=== PATIENT | male | born 1950 | race Caucasian/White ===

== ENCOUNTER → 2018-09-19 18:55 | Outpatient (REF) | payer MEDICARE, SELFPAY ==
[2018-09-19 19:05] LABS: Add Manual Diff / Slide Review NO; Basophils Absolute Auto 100 /uL (0-100); Basophils Percent Auto 1.1 % (0-2); Eosinophils Absolute Auto 100 /uL (0-450); Eosinophils Percent Auto 1.5 % (2-4); Hematocrit 46.6 % (41-53); Lymphocytes Absolute Auto 2600 /uL (1100-4500); Lymphocytes Percent Auto 33.8 % (25-40); Mean Corpuscular HGB Conc 34.4 % (30-36); Mean Corpuscular Hemoglobin 31.7 PG (26-34); Mean Corpuscular Volume 92.1 fL (80-100); Monocytes Absolute Auto 600 /uL (0-900); Monocytes Percent Auto 7.8 % (3-14); Neutrophils Absolute Auto 4400 /uL (1500-7000); Neutrophils Percent Auto 55.8 % (50-75); Platelet Count 235 X10^3/uL (150-400); Red Blood Cell Count 5.06 X10^6/uL (4.5-5.9); Red Cell Distribution Width 13.1 % (11.6-14.8); White Blood Cell Count 7.8 X10^3/uL (4.5-11.0)
[2018-09-19 19:11] LABS: Alanine Aminotransferase 33 IU/L (21-72); Albumin 4.6 g/dL (3.5-5.0); Albumin Globulin Ratio 1.5 (1.0-2.8); Alkaline Phosphatase 70 U/L (38-126); Aspartate Aminotransferase 30 IU/L (17-59); BUN Creatinine Ratio 14.2 (6-22); Bilirubin Total 0.5 mg/dL (0.2-1.3); Blood Urea Nitrogen 17 mg/dL (9-20); Calcium 9.7 mg/dL (8.4-10.2); Carbon Dioxide 26 mmol/L (22-32); Chloride 99 mmol/L (98-107); Cholesterol 203 mg/dL (140-199); Estimated Glomerular Filt Rate 59.9 mL/min (>60); Globulin 3.1 g/dL (1.7-4.1); Glucose 101 mg/dL (80-110); HDL Cholesterol 36 mg/dL (40-60); HEMOLYSIS 26 (0-50); LDL Cholesterol Calculated 102 mg/dL (<100); Potassium 4.8 mmol/L (3.4-5.1); Sodium 139 mmol/L (137-145); Total Protein 7.7 g/dL (6.3-8.2); Triglycerides 326 mg/dL (35-150)
[2018-09-19 19:17] LABS: Hemoglobin A1C% w Est Avg Glu 5.6 % (4.0-6.0)
[2018-09-19 19:33] LABS: Vitamin D 25 Hydroxy (D3) 32.7 ng/mL (30.0-100.0)
== END ==
LOC: LAB 18:55
PROVIDERS: Visit Provider Nurse Practitioner Acute Care
DX: E29.1 Testicular hypofunction (principal); F52.0 Hypoactive sexual desire disorder; I10 Essential (primary) hypertension
CPT/HCPCS: 80053; 80061; 82306; 83036; 84153; 85025

== ENCOUNTER 2018-11-17 22:23 | Emergency (ER) | payer MEDICARE, SELFPAY ==
[2018-11-17 22:27] VITALS: BP 159/78; PULSE 98; RESP 18; TEMP 36.7; O2SAT 97; BMI 28.8
--- NOTE | 2018-11-17 23:09 | ED.EXTPRO ---
HPI - Extremity Problem General Chief complaint: Extremity Problem,Nontraumatic Stated complaint: thinks he has a blood clot behind right knee Time Seen by Provider: 11/17/18 22:38 Source: patient Mode of arrival: ambulatory Limitations: no limitations History of Present Illness HPI Narrative: Patient is an otherwise healthy 68-year-old male here for evaluation of pain on the outside of his right knee. He states that today he has been approximately 16 hr in a car. When he returned home he had pain to the outside of the right knee. No specific trauma. No chest pain or shortness of breath. No prior history of blood clots. No swelling in his lower extremity. 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 Review of Systems Constitutional Denies headache(s) ENT Ears, Nose, Mouth, and Throat: Denies headache(s) Cardiovascular Denies chest pain and Denies dyspnea Respiratory Denies dyspnea Gastrointestinal Gastrointestinal: Denies abdominal pain Musculoskeletal Comments: Pain to the outside of the right knee Integumentary/Breasts Denies rash Neurologic Denies headache(s) Hematologic/Lymphatic Denies easy bleeding and Denies easy bruising [facility] Medical History Healthy adult (Acute) Social History marital status: Social History marital status: Exam Initial Vital Signs Initial Vital Signs: Vital Signs Temperature 98.1 F 11/17/18 22:27 Pulse Rate 98 H 11/17/18 22:27 Respiratory Rate 18 11/17/18 22:27 Blood Pressure 159/78 H 11/17/18 22:27 Pulse Oximetry 97 11/17/18 22:27 Const General: cooperative, healthy appearing, comfortable, well developed, well groomed and No acute distress Orientation: alert and awake Resp Effort & Inspection: normal respiratory effort Cardio Rate: regular rate Skin Lesions: no lesions Rashes: no rashes Neuro General: alert and awake Extrem General: normal to inspection and capillary refill normal Other: Patient with tenderness to palpation on the lateral aspect of the right knee over the head of the fibula. No patella tendon or quadriceps tendon tenderness. No hamstring tenderness. It is not tender on the posterior aspect of the right knee. Psych Appearance: grossly normal and well kempt Scores Danny' Criteria for DVT Active Cancer (Treatment within 6 months): No Bedridden recently >3 days or major surgery within 4 weeks: No Calf Swelling >3cm compared to other leg: No Collateral (nonvericose) superficial veins present: No Entire leg swollen: No Localized tenderness along the deep vein system: No Pitting edema, confined to symtomatic leg: No Paralysis, paresis, or recent plaster immobilization of ext: No Previously documented DVT: No Alternative dx to DVT as likely or more likely: Yes Christiano criteria for DVT: -2 Course Vital Signs - 8 hr 11/17/18 22:27 11/17/18 23:58 Temperature 98.1 F 98.7 F Pulse Rate 98 H 90 Respiratory Rate 18 18 Blood Pressure 159/78 H 152/70 H Pulse Oximetry 97 97 MDM - Extremity (Nontraumatic) MDM Narrative Medical decision making narrative: Patient with tenderness to palpation on the lateral aspect of the right knee that is pinpoint over the head of the fibula. He is not tender in the distribution of the veins in the right lower extremity. He has no right lower extremity swelling. He has no chest pain or shortness of breath. I did discuss with them that he is somewhat at risk for a blood clot secondary to his travel today however his physical exam is not consistent with that. Will hold on ultrasound for now. Will do conservative treatment for now. Give patient strict return precautions. He expressed understanding agreement plan. Discharge Plan Departure Patient Disposition: Home Clinical Impression: Knee pain, right Qualifiers: Chronicity: acute Qualified Code(s): M25.561 - Pain in right knee Discharge Date/Time: 11/17/18 23:55 Interventions: ED Discharge Assessment Last Done: 11/17/18 23:58 Instructions: How To Perform RICE (Rest, Ice, Compress, Elevate), DI for Knee Pain Activity Restrictions/Additional Instructions: Return to the emergency department for new symptoms to include swelling in your calf for your foot, chest pain, shortness of breath, worsening pain, or any other concerning symptoms
[2018-11-17 23:58] VITALS: BP 152/70; PULSE 90; RESP 18; TEMP 37.1; O2SAT 97
== END 2018-11-17 23:55 | disposition home or self-care (01) ==
PROVIDERS: Emergency Provider Emergency Medicine
DX: M25.561 Pain in right knee (principal)
CPT/HCPCS: 99282

== ENCOUNTER → 2020-09-29 18:02 | Outpatient (CLI) | payer MEDICARE, SELFPAY ==
[2020-09-29 18:28] LABS: Add Manual Diff / Slide Review NO; Basophils Absolute Auto 0 /uL (0-100); Basophils Percent Auto 0.5 % (0-2); Eosinophils Absolute Auto 100 /uL (0-450); Eosinophils Percent Auto 0.9 % (2-4); Hematocrit 46.2 % (41-53); Hemoglobin 15.6 g/dL (13.5-17.5); Lymphocytes Absolute Auto 2400 /uL (1100-4500); Lymphocytes Percent Auto 26.3 % (25-40); Mean Corpuscular HGB Conc 33.9 % (30-36); Mean Corpuscular Hemoglobin 31.6 PG (26-34); Mean Corpuscular Volume 93.4 fL (80-100); Monocytes Absolute Auto 700 /uL (0-900); Monocytes Percent Auto 7.4 % (3-14); Neutrophils Absolute Auto 5900 /uL (1500-7000); Neutrophils Percent Auto 64.9 % (50-75); Platelet Count 195 X10^3/uL (150-400); Red Blood Cell Count 4.95 X10^6/uL (4.5-5.9); Red Cell Distribution Width 12.9 % (11.6-14.8); White Blood Cell Count 9.1 X10^3/uL (4.5-11.0)
[2020-09-29 18:42] LABS: Alanine Aminotransferase 55 IU/L (<50); Albumin 4.5 g/dL (3.5-5.0); Albumin Globulin Ratio 1.3 (1.0-2.8); Alkaline Phosphatase 53 U/L (38-126); Aspartate Aminotransferase 38 IU/L (17-59); BUN Creatinine Ratio 12.4 (6-22); Bilirubin Total 0.6 mg/dL (0.2-1.3); Blood Urea Nitrogen 14 mg/dL (9-20); Calcium 9.8 mg/dL (8.4-10.2); Carbon Dioxide 32 mmol/L (22-32); Chloride 101 mmol/L (98-107); Estimated Glomerular Filt Rate > 60.0 mL/min (>60); Globulin 3.6 g/dL (1.7-4.1); Glucose 112 mg/dL (80-110); HEMOLYSIS < 15 (0-50); Potassium 4.2 mmol/L (3.4-5.1); Sodium 139 mmol/L (137-145); Total Protein 8.1 g/dL (6.3-8.2)
== END ==
PROVIDERS: Referring Provider Nurse Practitioner; Visit Provider Nurse Practitioner
DX: R42 Dizziness and giddiness (principal)
CPT/HCPCS: 36415; 80053; 85025

== ENCOUNTER → 2020-12-10 17:51 | Outpatient (CLI) | payer MEDICARE, SELFPAY | PROVIDERS: Visit Provider Student in an Organized Health Care Education/Training Program | DX: R30.0 Dysuria (principal) | CPT/HCPCS: 87086 ==

== ENCOUNTER → 2022-04-13 08:18 | Outpatient (CLI) | payer MEDICARE, SELFPAY ==
[2022-04-13 09:58] LABS: Add Manual Diff / Slide Review NO; Basophils Absolute Auto 100 /uL (0-100); Basophils Percent Auto 0.7 % (0-2); Eosinophils Absolute Auto 200 /uL (0-450); Eosinophils Percent Auto 1.9 % (2-4); Hemoglobin 15.1 g/dL (13.5-17.5); Lymphocytes Absolute Auto 2000 /uL (1100-4500); Lymphocytes Percent Auto 22.9 % (25-40); Mean Corpuscular HGB Conc 34.5 % (30-36); Mean Corpuscular Hemoglobin 31.4 PG (26-34); Mean Corpuscular Volume 91.3 fL (80-100); Monocytes Absolute Auto 800 /uL (0-900); Monocytes Percent Auto 8.9 % (3-14); Neutrophils Absolute Auto 5800 /uL (1500-7000); Neutrophils Percent Auto 65.6 % (50-75); Platelet Count 298 X10^3/uL (150-400); Red Blood Cell Count 4.82 X10^6/uL (4.5-5.9); Red Cell Distribution Width 13.3 % (11.6-14.8); White Blood Cell Count 8.9 X10^3/uL (4.5-11.0)
[2022-04-13 10:37] LABS: Alanine Aminotransferase 29 IU/L (<50); Albumin 4.2 g/dL (3.5-5.0); Albumin Globulin Ratio 1.3 (1.0-2.8); Alkaline Phosphatase 95 U/L (38-126); Aspartate Aminotransferase 25 IU/L (17-59); Bilirubin Total 0.5 mg/dL (0.2-1.3); Blood Urea Nitrogen 19 mg/dL (9-20); Calcium 9.3 mg/dL (8.4-10.2); Carbon Dioxide 28 mmol/L (22-32); Chloride 98 mmol/L (98-107); Estimated Glomerular Filt Rate > 60 mL/min (>60); Globulin 3.3 g/dL (1.7-4.1); Glucose 101 mg/dL (80-110); HEMOLYSIS < 15 (0-50); Potassium 4.8 mmol/L (3.4-5.1); Sodium 138 mmol/L (137-145); Total Protein 7.5 g/dL (6.3-8.2)
[2022-04-15 13:10] LABS: Cholesterol, Total 199 mg/dL (100-199); HDL-Cholesterol 42 mg/dL (>39); LDL Particle 1720 nmol/L (<1000); LDL Size 20.7 nm (>20.5); LDL-Cholsterol 139 mg/dL (0-99); LP-IR Score 54 (<=45); Small LDL- Particle 622 nmol/L (<=527); Triglycerides 100 mg/dL (0-149)
== END ==
PROVIDERS: PCP Nurse Practitioner Family; Referring Provider Specialist; Visit Provider Specialist
DX: E78.2 Mixed hyperlipidemia (principal); R06.00 Dyspnea, unspecified; R00.0 Tachycardia, unspecified
CPT/HCPCS: 36415; 80053; 80061; 83704; 84443; 85025

== ENCOUNTER 2025-03-20 15:50 | Inpatient (IN) | payer MEDICARE, SELFPAY ==
[2025-03-20] VITALS (13 sets, daily range): BP systolic 93–128; BP diastolic 50–62; PULSE 77–84; RESP 17–24; TEMP 37; O2SAT 92–95; BMI 28.1
--- NOTE | 2025-03-20 17:38 | DI.RAD.S_ITS ---
PROCEDURE: XR CHEST 1V INDICATIONS: fatigue/weakness/hx lung cancer TECHNIQUE: One view of the chest was acquired. COMPARISON: [facility], CT, CT CHEST WITH CONTRAST, 03/22/2022, 16:14. [facility], CR, XR CHEST 2 VIEWS, 03/10/2022, 18:32. FINDINGS: Surgical changes and devices: A right-sided central line is seen, with the tip overlying the mid superior vena cava. Lungs and pleura: An incomplete inspiratory result is noted, causing a crowded appearance to the lung markings. No focal infiltrates are seen. No pneumothorax or significant pleural effusions are seen. Mediastinum: The cardiac contours are within normal limits. The aorta demonstrates calcification and tortuosity. Bones and chest wall: Age-appropriate bony degenerative changes are seen. No suspicious bony lesions. Overlying soft tissues appear unremarkable. IMPRESSION: Low lung volumes, without an acute abnormality seen by plain film. Postoperative and degenerative changes are seen. Dictated by: Maximino Zuniga M.D. on 03/20/2025 at 17:11 Approved by: Maximino Zuniga M.D. on 03/20/2025 at 17:12
[2025-03-20 18:42] LABS: Add Manual Diff / Slide Review NO; Hematocrit 28.1 % (41-53); Hemoglobin 9.6 g/dL (13.5-17.5); Lymphocytes Absolute Auto 2200 /uL (1100-4500); Mean Corpuscular HGB Conc 34.1 % (30-36); Mean Corpuscular Hemoglobin 32.8 PG (26-34); Mean Corpuscular Volume 96.2 fL (80-100); Platelet Count 294 X10^3/uL (150-400)
[2025-03-20 18:54] LABS: Alanine Aminotransferase 14 IU/L (<50); Albumin 4.1 g/dL (3.5-5.0); Albumin Globulin Ratio 1.4 (1.0-2.8); Alkaline Phosphatase 150 U/L (38-126); Blood Urea Nitrogen 20 mg/dL (9-20); Calcium 8.9 mg/dL (8.4-10.2); Carbon Dioxide 27 mmol/L (22-32); Chloride 105 mmol/L (98-107); Estimated Glomerular Filt Rate > 60 mL/min (>60); Globulin 2.9 g/dL (1.7-4.1); Glucose 94 mg/dL (70-99); HEMOLYSIS < 15 (0-50); Lactate (Lactic Acid) 0.8 mmol/L (0.7-2.1); Potassium 4.1 mmol/L (3.4-5.1); Sodium 140 mmol/L (137-145); Total Protein 7.0 g/dL (6.3-8.2)
[2025-03-20] MEDS: SODIUM CHLORIDE 0.9% 1,000 ML 1000 ML IV ×2 (18:58→21:09)
--- NOTE | 2025-03-20 19:12 | ED.WEAKNESS ---
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 Rosado [facility] who he last saw 4 months ago, was scheduled for outpatient follow up MRI brain today, but felt too weak. Has generalized weakness for the last 1 week, increased today. Denies pain to head, chest, abdomen, pelvis, back. Has chronic joint pain. No recent diarrhea. No black or red stools. Denies cough shortness of breath. Related Data Home Medications ?Medication ?Instructions ?Recorded ?Confirmed alectinib 150 mg capsule (Alecensa) See Rx Instructions PO BID cancer 03/21/25 03/21/25 calcium carb-D3-mag [id number] 1 tab PO DAILY 03/21/25 03/21/25 duloxetine 30 mg capsule,delayed 30 mg PO BID 03/21/25 03/21/25 release finasteride 5 mg tablet 5 mg PO DAILY 03/21/25 03/21/25 methylphenidate HCl 5 mg tablet 5 mg PO DAILY PRN wake 03/21/25 03/21/25 mirabegron 50 mg tablet,extended 50 mg PO DAILY 03/21/25 03/21/25 release 24 hr (Myrbetriq) pantoprazole 40 mg tablet,delayed 40 mg PO DAILY 03/21/25 03/21/25 release potassium chloride 10 mEq 20 meq PO DAILY 03/21/25 03/21/25 capsule,extended release tadalafil 2.5 mg tablet 2.5 mg PO DAILY 03/21/25 03/21/25 tamsulosin 0.4 mg capsule 0.8 mg PO DAILY 03/21/25 03/21/25 Allergies Allergy/AdvReac Type Severity Reaction Status Date / Time chlorhexidine Allergy Verified 03/20/25 16:22 tegaderm Allergy Severe Rash Uncoded 03/20/25 16:22 Patient History <Jeromy Ramsay MD - Last Filed: 03/22/25 02:28> Medical History Healthy adult Sinusitis Social History marital status: household members: spouse Smoking Status: Never smoker alcohol intake: never Smoking Status: Never smoker Exam <Jeromy Ramsay MD - Last Filed: 03/22/25 02:28> Narrative Exam Narrative: GENERAL: Well-developed patient, in mild distress. HEAD: Atraumatic. Normocephalic. EYES: Pupils equal round and reactive. Extraocular motions intact. No scleral icterus. No injection or drainage. ENT: Nose without bleeding, purulent drainage. Throat without erythema, tonsillar hypertrophy or exudate. Airway patent. NECK: Trachea midline. Non tender CARDIOVASCULAR: Regular rate and rhythm without murmurs, gallops, or rubs. RESPIRATORY: Clear to auscultation. Breath sounds equal bilaterally. No wheezes, rales, or rhonchi. Right Port-A-Cath accessed by nursing, site appears clean without redness or swelling. GASTROINTESTINAL: Abdomen soft, non-tender, nondistended. EXTREMITIES: No edema or joint tenderness. BACK: Nontender without deformity or crepitance. No flank tenderness. NEURO: AOx3. Motor functions grossly nonfocal, can lift legs off bed but not hold, can lift arms off bed but not hold. No obvious facial droop, pupils equal round, conjugate gaze. Clear speech. SKIN: No rash or erythema of visible areas Initial Vital Signs Initial Vital Signs: Vital Signs Temperature 98.6 F 03/20/25 16:21 Pulse Rate 84 03/20/25 16:21 Respiratory Rate 18 03/20/25 16:21 Blood Pressure 119/53 L 03/20/25 16:21 Pulse Oximetry 95 03/20/25 16:21 Oxygen Delivery Method Room Air 03/20/25 16:21 <Jun Wilson MD - Last Filed: 03/22/25 14:54> Initial Vital Signs Initial Vital Signs: Vital Signs Temperature 98.6 F 03/20/25 16:21 Pulse Rate 84 03/20/25 16:21 Respiratory Rate 18 03/20/25 16:21 Blood Pressure 119/53 L 03/20/25 16:21 Pulse Oximetry 95 03/20/25 16:21 Oxygen Delivery Method Room Air 03/20/25 16:21 Course <Jeromy Ramsay MD - Last Filed: 03/22/25 02:28> Orders Ordered: Acetaminophen (Acetaminophen 325 Mg Tablet) 650 mg PO Q6H PRN PRN Reason: Fever/Mild Pain (1-3) Hydrocodone Bitart/Acetaminophen (Hydrocodone/Acet 5/325 Tablet) 1 tab PO Q4H PRN PRN Reason: Pain, Moderate (4-6) Dexamethasone (Dexamethasone 4 Mg/Ml Vial) 4 mg IV Q6HR [facility] Last Admin: 03/22/25 12:18 Dose: 4 mg Documented By: Admin: 03/22/25 05:31 Dose: 4 mg Documented By: Admin: 03/21/25 23:56 Dose: 4 mg Documented By: Admin: 03/21/25 17:40 Dose: 4 mg Documented By: DIMAS Heparin Sodium (Porcine) (Heparin 500 Unit/5 Ml Port Flush) 500 unit IV PRN PRN PRN Reason: Flush Sodium Chloride (Normal Saline 0.9%) 1,000 mls @ 250 mls/hr IV CONT [facility] Last Infusion: 03/21/25 08:47 Dose: Infused Documented By: Admin: 03/21/25 03:57 Dose: 250 mls/hr Documented By: MONSERRAT Dextrose/Sodium Chloride (Dextrose 5%-0.9% Ns) 1,000 mls @ 100 mls/hr IV CONT [facility] Last Admin: 03/22/25 13:10 Dose: 100 mls/hr Documented By: Infusion: 03/22/25 13:10 Dose: Infused Documented By: Admin: 03/22/25 03:26 Dose: 100 mls/hr Documented By: Infusion: 03/22/25 03:26 Dose: Infused Documented By: Admin: 03/21/25 17:41 Dose: 100 mls/hr Documented By: DIMAS Nf (Alectinib 150 Mg (Caps)) 600 mg PO BID [facility] Last Admin: 03/22/25 09:01 Dose: 600 mg Documented By: LISBETH Discontinued Medications Dexamethasone (Dexamethasone 10 Mg/Ml Vial) 10 mg IV NOW ONE Stop: 03/21/25 03:35 Last Admin: 03/21/25 03:57 Dose: 10 mg Documented By: MONSERRAT Sodium Chloride (Normal Saline 0.9%) 1,000 mls @ 1,000 mls/hr IV BOLUS ONE Stop: 03/20/25 18:37 Last Infusion: 03/20/25 21:08 Dose: Infused Documented By: Admin: 03/20/25 18:58 Dose: 1,000 mls/hr Documented By: RACHEL Sodium Chloride (Normal Saline 0.9%) 1,000 mls @ 1,000 mls/hr IV BOLUS ONE Stop: 03/20/25 22:06 Last Infusion: 03/20/25 22:54 Dose: Infused Documented By: Admin: 03/20/25 21:09 Dose: 1,000 mls/hr Documented By: RACHEL Vital Signs Vital signs: Vital Signs - 8 hr 03/21/25 06:30 03/21/25 06:30 03/21/25 06:59 Pulse Rate 80 72 Respiratory Rate 15 Blood Pressure 104/51 L Pulse Oximetry 98 98 Oxygen Delivery Method Oxygen Flow Rate 03/21/25 07:00 03/21/25 07:01 03/21/25 07:40 Pulse Rate 72 80 Respiratory Rate 15 Blood Pressure 107/56 L Pulse Oximetry 99 Oxygen Delivery Method Oxygen Flow Rate 03/21/25 07:41 03/21/25 07:41 03/21/25 08:00 Pulse Rate 80 Respiratory Rate 21 Blood Pressure 117/56 L 105/55 L Pulse Oximetry 100 Oxygen Delivery Method Oxygen Flow Rate 03/21/25 08:00 03/21/25 08:30 03/21/25 08:30 Pulse Rate 73 74 Respiratory Rate 16 4 L Blood Pressure 107/53 L Pulse Oximetry 99 95 Oxygen Delivery Method Oxygen Flow Rate 03/21/25 09:00 03/21/25 09:00 03/21/25 11:34 Pulse Rate 75 Respiratory Rate 13 Blood Pressure 120/58 L Pulse Oximetry 88 L Oxygen Delivery Method Nasal Cannula Oxygen Flow Rate 2 03/21/25 12:00 Pulse Rate 80 Respiratory Rate 18 Blood Pressure Pulse Oximetry 99 Oxygen Delivery Method Oxygen Flow Rate <Jun Wilson MD - Last Filed: 03/22/25 14:54> Orders Ordered: Acetaminophen (Acetaminophen 325 Mg Tablet) 650 mg PO Q6H PRN PRN Reason: Fever/Mild Pain (1-3) Hydrocodone Bitart/Acetaminophen (Hydrocodone/Acet 5/325 Tablet) 1 tab PO Q4H PRN PRN Reason: Pain, Moderate (4-6) Dexamethasone (Dexamethasone 4 Mg/Ml Vial) 4 mg IV Q6HR [facility] Last Admin: 03/22/25 12:18 Dose: 4 mg Documented By: Admin: 03/22/25 05:31 Dose: 4 mg Documented By: Admin: 03/21/25 23:56 Dose: 4 mg Documented By: Admin: 03/21/25 17:40 Dose: 4 mg Documented By: DIMAS Heparin Sodium (Porcine) (Heparin 500 Unit/5 Ml Port Flush) 500 unit IV PRN PRN PRN Reason: Flush Sodium Chloride (Normal Saline 0.9%) 1,000 mls @ 250 mls/hr IV CONT [facility] Last Infusion: 03/21/25 08:47 Dose: Infused Documented By: Admin: 03/21/25 03:57 Dose: 250 mls/hr Documented By: MONSERRAT Dextrose/Sodium Chloride (Dextrose 5%-0.9% Ns) 1,000 mls @ 100 mls/hr IV CONT [facility] Last Admin: 03/22/25 13:10 Dose: 100 mls/hr Documented By: Infusion: 03/22/25 13:10 Dose: Infused Documented By: Admin: 03/22/25 03:26 Dose: 100 mls/hr Documented By: Infusion: 03/22/25 03:26 Dose: Infused Documented By: Admin: 03/21/25 17:41 Dose: 100 mls/hr Documented By: DIMAS Nf (Alectinib 150 Mg (Caps)) 600 mg PO BID [facility] Last Admin: 03/22/25 09:01 Dose: 600 mg Documented By: LISBETH Discontinued Medications Dexamethasone (Dexamethasone 10 Mg/Ml Vial) 10 mg IV NOW ONE Stop: 03/21/25 03:35 Last Admin: 03/21/25 03:57 Dose: 10 mg Documented By: MONSERRAT Sodium Chloride (Normal Saline 0.9%) 1,000 mls @ 1,000 mls/hr IV BOLUS ONE Stop: 03/20/25 18:37 Last Infusion: 03/20/25 21:08 Dose: Infused Documented By: Admin: 03/20/25 18:58 Dose: 1,000 mls/hr Documented By: RACHEL Sodium Chloride (Normal Saline 0.9%) 1,000 mls @ 1,000 mls/hr IV BOLUS ONE Stop: 03/20/25 22:06 Last Infusion: 03/20/25 22:54 Dose: Infused Documented By: Admin: 03/20/25 21:09 Dose: 1,000 mls/hr Documented By: RACHEL Vital Signs Vital signs: Vital Signs - 8 hr 03/21/25 06:30 03/21/25 06:30 03/21/25 06:59 Pulse Rate 80 72 Respiratory Rate 15 Blood Pressure 104/51 L Pulse Oximetry 98 98 Oxygen Delivery Method Oxygen Flow Rate 03/21/25 07:00 03/21/25 07:01 03/21/25 07:40 Pulse Rate 72 80 Respiratory Rate 15 Blood Pressure 107/56 L Pulse Oximetry 99 Oxygen Delivery Method Oxygen Flow Rate 03/21/25 07:41 03/21/25 07:41 03/21/25 08:00 Pulse Rate 80 Respiratory Rate 21 Blood Pressure 117/56 L 105/55 L Pulse Oximetry 100 Oxygen Delivery Method Oxygen Flow Rate 03/21/25 08:00 03/21/25 08:30 03/21/25 08:30 Pulse Rate 73 74 Respiratory Rate 16 4 L Blood Pressure 107/53 L Pulse Oximetry 99 95 Oxygen Delivery Method Oxygen Flow Rate 03/21/25 09:00 03/21/25 09:00 03/21/25 11:34 Pulse Rate 75 Respiratory Rate 13 Blood Pressure 120/58 L Pulse Oximetry 88 L Oxygen Delivery Method Nasal Cannula Oxygen Flow Rate 2 03/21/25 12:00 Pulse Rate 80 Respiratory Rate 18 Blood Pressure Pulse Oximetry 99 Oxygen Delivery Method Oxygen Flow Rate MDM - Weakness <Jeromy Ramsay MD - Last Filed: 03/22/25 02:28> Lab Data Lab results narrative: White blood cell count 77293, hemoglobin 9.6, platelets 294,000. Glucose 94. BUN 20 with creatinine 1.22, serum CO2 27. Electrolytes unremarkable. Urinalysis negative. COVID RSV flu negative. 03/22/25 04:38 03/22/25 04:38 Labs: Lab Results 03/20/25 03/20/25 03/21/25 Range/Units 18:31 22:13 01:13 WBC 13.1 H (4.5-11.0) X10^3/uL RBC 2.92 L (4.5-5.9) X10^6/uL Hgb 9.6 L (13.5-17.5) g/dL Hct 28.1 L (41-53) % MCV 96.2 (80-100) fL MCH 32.8 (26-34) PG MCHC 34.1 (30-36) % RDW 14.5 (11.6-14.8) % Plt Count 294 (150-400) X10^3/uL Neut % (Auto) 71.1 (50-75) % Lymph % (Auto) 17.0 L (25-40) % [place] % (Auto) 5.9 (3-14) % Eos % (Auto) 5.1 H (2-4) % Baso % (Auto) 0.9 (0-2) % Neut # (Auto) 9300 H (6636-9358) /uL Lymph # (Auto) 2200 (6005-3709) /uL [place] # (Auto) 800 (0-900) /uL Eos # (Auto) 700 H (0-450) /uL Baso # (Auto) 100 (0-100) /uL VBG pH (7.33-7.43) VBG pCO2 (45-50) mmHg VBG pO2 (35-45) mmHg VBG HCO3 (24-28) mmol/L VBG Total CO2 (24-29) mmol/L VBG O2 Saturation (70-75) % VBG Base Excess (0-4) mmol/L FiO2 % % Sodium 140 (137-145) mmol/L Potassium 4.1 (3.4-5.1) mmol/L Chloride 105 (98-107) mmol/L Carbon Dioxide 27 (22-32) mmol/L BUN 20 (9-20) mg/dL Creatinine 1.22 (0.66-1.25) mg/dL Estimated GFR > 60 (>60) mL/min BUN/Creatinine Ratio 16.4 (6-22) Glucose 94 (70-99) mg/dL Lactate 0.8 (0.7-2.1) mmol/L Calcium 8.9 (8.4-10.2) mg/dL Total Bilirubin 1.1 (0.2-1.3) mg/dL AST 25 (17-59) IU/L ALT 14 (<50) IU/L Alkaline Phosphatase 150 H (38-126) U/L Troponin I < 0.012 < 0.012 (0.01-0.034) ng/mL Total Protein 7.0 (6.3-8.2) g/dL Albumin 4.1 (3.5-5.0) g/dL Globulin 2.9 (1.7-4.1) g/dL Albumin/Globulin Ratio 1.4 (1.0-2.8) Urine Color Yellow Urine Appearance Clear Urine pH 6.0 (4.5-8.0) Ur Specific [place] 1.020 (1.000-1.035) Urine Protein Negative (Negative) Urine Glucose (UA) Negative (Negative) g/dL Urine Ketones Negative (NEGATIVE) Urine Occult Blood Negative (Negative) Urine Nitrate Negative (Negative) Urine Bilirubin Negative (NEGATIVE) Urine Urobilinogen 0.2 (0.2) E.U./dL Ur Leukocyte Esterase Negative (NEGATIVE) Urine RBC None seen (0-5/HPF) Urine WBC None seen (0-5/HPF) Ur Squamous Epith Cells None seen (0-5/HPF) Urine Bacteria None seen (None) Ur Culture Indicated? Cult not indicated Vol Urine Centrifuged 10ml (spun) SARS-CoV-2 (PCR) Negative (Negative) Influenza A (RT-PCR) Flu a negative (NEGATIVE) Influenza B (RT-PCR) Flu b negative (NEGATIVE) RSV (PCR) Negative (Negative) Blood Type Antibody Screen 03/21/25 03/21/25 03/21/25 Range/Units 03:05 03:33 08:37 WBC (4.5-11.0) X10^3/uL RBC (4.5-5.9) X10^6/uL Hgb 8.2 L 9.2 L (13.5-17.5) g/dL Hct 22.9 L 26.5 L (41-53) % MCV (80-100) fL MCH (26-34) PG MCHC (30-36) % RDW (11.6-14.8) % Plt Count (150-400) X10^3/uL Neut % (Auto) (50-75) % Lymph % (Auto) (25-40) % [place] % (Auto) (3-14) % Eos % (Auto) (2-4) % Baso % (Auto) (0-2) % Neut # (Auto) (6037-9513) /uL Lymph # (Auto) (9858-0706) /uL [place] # (Auto) (0-900) /uL Eos # (Auto) (0-450) /uL Baso # (Auto) (0-100) /uL VBG pH (7.33-7.43) VBG pCO2 (45-50) mmHg VBG pO2 (35-45) mmHg VBG HCO3 (24-28) mmol/L VBG Total CO2 (24-29) mmol/L VBG O2 Saturation (70-75) % VBG Base Excess (0-4) mmol/L FiO2 % % Sodium (137-145) mmol/L Potassium (3.4-5.1) mmol/L Chloride (98-107) mmol/L Carbon Dioxide (22-32) mmol/L BUN (9-20) mg/dL Creatinine (0.66-1.25) mg/dL Estimated GFR (>60) mL/min BUN/Creatinine Ratio (6-22) Glucose (70-99) mg/dL Lactate (0.7-2.1) mmol/L Calcium (8.4-10.2) mg/dL Total Bilirubin (0.2-1.3) mg/dL AST (17-59) IU/L ALT (<50) IU/L Alkaline Phosphatase (38-126) U/L Troponin I (0.01-0.034) ng/mL Total Protein (6.3-8.2) g/dL Albumin (3.5-5.0) g/dL Globulin (1.7-4.1) g/dL Albumin/Globulin Ratio (1.0-2.8) Urine Color Urine Appearance Urine pH (4.5-8.0) Ur Specific [place] (1.000-1.035) Urine Protein (Negative) Urine Glucose (UA) (Negative) g/dL Urine Ketones (NEGATIVE) Urine Occult Blood (Negative) Urine Nitrate (Negative) Urine Bilirubin (NEGATIVE) Urine Urobilinogen (0.2) E.U./dL Ur Leukocyte Esterase (NEGATIVE) Urine RBC (0-5/HPF) Urine WBC (0-5/HPF) Ur Squamous Epith Cells (0-5/HPF) Urine Bacteria (None) Ur Culture Indicated? Vol Urine Centrifuged SARS-CoV-2 (PCR) (Negative) Influenza A (RT-PCR) (NEGATIVE) Influenza B (RT-PCR) (NEGATIVE) RSV (PCR) (Negative) Blood Type O Negative Antibody Screen Negative 03/21/25 Range/Units 14:50 WBC (4.5-11.0) X10^3/uL RBC (4.5-5.9) X10^6/uL Hgb (13.5-17.5) g/dL Hct (41-53) % MCV (80-100) fL MCH (26-34) PG MCHC (30-36) % RDW (11.6-14.8) % Plt Count (150-400) X10^3/uL Neut % (Auto) (50-75) % Lymph % (Auto) (25-40) % [place] % (Auto) (3-14) % Eos % (Auto) (2-4) % Baso % (Auto) (0-2) % Neut # (Auto) (4710-0104) /uL Lymph # (Auto) (3755-2084) /uL [place] # (Auto) (0-900) /uL Eos # (Auto) (0-450) /uL Baso # (Auto) (0-100) /uL VBG pH 7.39 (7.33-7.43) VBG pCO2 38.6 L (45-50) mmHg VBG pO2 38 (35-45) mmHg VBG HCO3 24 (24-28) mmol/L VBG Total CO2 23 L (24-29) mmol/L VBG O2 Saturation 72 (70-75) % VBG Base Excess -1.1 L (0-4) mmol/L FiO2 % 21.0 % % Sodium (137-145) mmol/L Potassium (3.4-5.1) mmol/L Chloride (98-107) mmol/L Carbon Dioxide (22-32) mmol/L BUN (9-20) mg/dL Creatinine (0.66-1.25) mg/dL Estimated GFR (>60) mL/min BUN/Creatinine Ratio (6-22) Glucose (70-99) mg/dL Lactate (0.7-2.1) mmol/L Calcium (8.4-10.2) mg/dL Total Bilirubin (0.2-1.3) mg/dL AST (17-59) IU/L ALT (<50) IU/L Alkaline Phosphatase (38-126) U/L Troponin I (0.01-0.034) ng/mL Total Protein (6.3-8.2) g/dL Albumin (3.5-5.0) g/dL Globulin (1.7-4.1) g/dL Albumin/Globulin Ratio (1.0-2.8) Urine Color Urine Appearance Urine pH (4.5-8.0) Ur Specific [place] (1.000-1.035) Urine Protein (Negative) Urine Glucose (UA) (Negative) g/dL Urine Ketones (NEGATIVE) Urine Occult Blood (Negative) Urine Nitrate (Negative) Urine Bilirubin (NEGATIVE) Urine Urobilinogen (0.2) E.U./dL Ur Leukocyte Esterase (NEGATIVE) Urine RBC (0-5/HPF) Urine WBC (0-5/HPF) Ur Squamous Epith Cells (0-5/HPF) Urine Bacteria (None) Ur Culture Indicated? Vol Urine Centrifuged SARS-CoV-2 (PCR) (Negative) Influenza A (RT-PCR) (NEGATIVE) Influenza B (RT-PCR) (NEGATIVE) RSV (PCR) (Negative) Blood Type Antibody Screen Imaging Data Chest x-ray: Radiologist Impression: [address] [address] XRay Report Signed Patient: Sumeet Echeverria MR#: [id number] : 1950 Acct:[id number] Age/Sex: 74 / M Date of Service: 03/20/25 Loc: ED Accession Number: [id number] Procedure: XR chest 1V Ordering Provider: Radha Horan MD PROCEDURE: XR CHEST 1V INDICATIONS: fatigue/weakness/hx lung cancer TECHNIQUE: One view of the chest was acquired. COMPARISON: [facility], CT, CT CHEST WITH CONTRAST, 03/22/2022, 16:14. [facility], CR, XR CHEST 2 VIEWS, 03/10/2022, 18:32. FINDINGS: Surgical changes and devices: A right-sided central line is seen, with the tip overlying the mid superior vena cava. Lungs and pleura: An incomplete inspiratory result is noted, causing a crowded appearance to the lung markings. No focal infiltrates are seen. No pneumothorax or significant pleural effusions are seen. Mediastinum: The cardiac contours are within normal limits. The aorta demonstrates calcification and tortuosity. Bones and chest wall: Age-appropriate bony degenerative changes are seen. No suspicious bony lesions. Overlying soft tissues appear unremarkable. IMPRESSION: Low lung volumes, without an acute abnormality seen by plain film. Postoperative and degenerative changes are seen. Dictated by: Maximino Zuniga M.D. on 03/20/2025 at 17:11 Approved by: Maximino Zuniga M.D. on 03/20/2025 at 17:12 [facility] Narrative Medical decision making narrative: 74-year-old male with history of non-small cell carcinoma responsive to oral chemotherapy. Has generalized weakness. Afebrile, sirs screen negative. Nonfocal neuro exam. Chest x-ray without obvious acute changes. See radiology report. Urinalysis negative. Lactate not elevated. Trial of IV fluids, saline 1 L, repeat dose, heart rate not elevated. Systolic blood pressure varied 90-100 range. 0130, unclear cause of his continued weakness. We will request blood cultures. GFR favorable, agreeable to CT chest abdomen and pelvis imaging, ordered. 0310, CT chest abdomen and pelvis with IV contrast. Impressions: ?Sclerotic lesions within the thoracic and lumbar spine suspicious for metastatic disease. Recommend whole-body bone scan if not performed previously. Incidental findings.. See tele radiology report. Patient feels too weak to go home, spinal lesions noted above. We will reach out to his oncologist Dr Rosado at [facility]. 0330, case discussed with oncology [facility] Dr. Fan, concern about spinal lesions possibly related to his generalized weakness, they did not have radiology oncology consult if it were needed, also no beds there currently. Suggest transfer to facility that has Radiology Oncology, Neurosurgery, Oncology services. If still here at change of shift upcoming 0700 he advised MRI brain without and with contrast, MRI spine without and with contrast. Can start Decadron 10 mg now, and then 6 mg IV q8 hours. IV Decadron 10 mg ordered. [employer] initiating transfers to tertiary facility. Images sent to various facilities. 0400, case discussed with [facility] intake. Await callback. 0430, case discussed with , no beds. 0500, case discussed with [facility] oncology Dr Salazar, agrees with MRI Brain/Spine later this morning, can consult if transferred. Await callback from [facility] hospitalist. 0505, case discussed with Dr Harrington radiation oncology at [facility], advises MRI studies and callback. Believes that [facility] should further consult. 0550, case discussed with [facility] hosptialist Dr Duffy, advises MRI Brain/Spine and to reach out to [place] once studdy results available. Also no current beds at [facility]. 0620, case discussed with [place], no radiology oncology reportedly on-call there. We will reach back out to Sergey Barahona. Family members relayed contact information regarding their previous oncology related providers. Dr. Rosado oncology [facility], phone [phone]. Yasmani Ortez radiation oncology [facility], phone [phone]. Also they identified a provider Kathryn Resendiz MD, reported expert of ANK-positive small cell lung cancer at [facility], at phone [phone]. 0715, consider reaching out to [facility] oncology and rad-onc today during regular hours, MRI Brain/Spine ordered, to be performed, signed out to Dr Carmen. ---- Assumed care @ 0715 with work up and disposition pending. Above notes reviewed. Pt with generalized weakness with no focal findings x 1 week. Hx of nonsmall cell lung cancer. Oncologist is @ [facility]. Work up thus far unrevealing as to the cause of his weakness with normal labs, CT chest/abd/pelvis. Oncologist consulted overnight and recommended Decadron 10mg initially then 6mg q 8 hours, MRI brain and spine and transfer. No luck finding accepting facility. At time of transfer, plan was to get noncontrast CT head and if still here, MRI as suggested. CT head: IMPRESSION: 1. Age-related volume loss and severe small vessel ischemic change. 2. No acute intracranial process. Will reach out to pt's oncologist for recommendations. Pt reports ongoing issues with weakness since a diagnosis of cancer in 2021. He lives with his and has been using walker to help with ambulation. Reports worsening weakness in his legs x 1 week but also generalized weakness. No fever, cough, chest pain, abdominal pain, N/V/D/C. No significant back pain. Hgb earlier noted to drop after 2L bolus and continuous maintenance fluids. Mildly hypotensive prior to fluids. Will recheck Hgb now. No obvious source of bleeding. Pt was placed on supplemental oxygen when sleeping but when awake he is not hypoxic. No home oxygen. Will get PT evaluation regarding his weakness. Paged Dr. Rosado (oncologist in [place]) to discuss plan of care. <Jun Wilson MD - Last Filed: 03/22/25 14:54> Lab Data Labs: Lab Results 03/20/25 03/20/25 03/21/25 Range/Units 18:31 22:13 01:13 WBC 13.1 H (4.5-11.0) X10^3/uL RBC 2.92 L (4.5-5.9) X10^6/uL Hgb 9.6 L (13.5-17.5) g/dL Hct 28.1 L (41-53) % MCV 96.2 (80-100) fL MCH 32.8 (26-34) PG MCHC 34.1 (30-36) % RDW 14.5 (11.6-14.8) % Plt Count 294 (150-400) X10^3/uL Neut % (Auto) 71.1 (50-75) % Lymph % (Auto) 17.0 L (25-40) % [place] % (Auto) 5.9 (3-14) % Eos % (Auto) 5.1 H (2-4) % Baso % (Auto) 0.9 (0-2) % Neut # (Auto) 9300 H (4474-0706) /uL Lymph # (Auto) 2200 (7587-7192) /uL [place] # (Auto) 800 (0-900) /uL Eos # (Auto) 700 H (0-450) /uL Baso # (Auto) 100 (0-100) /uL VBG pH (7.33-7.43) VBG pCO2 (45-50) mmHg VBG pO2 (35-45) mmHg VBG HCO3 (24-28) mmol/L VBG Total CO2 (24-29) mmol/L VBG O2 Saturation (70-75) % VBG Base Excess (0-4) mmol/L FiO2 % % Sodium 140 (137-145) mmol/L Potassium 4.1 (3.4-5.1) mmol/L Chloride 105 (98-107) mmol/L Carbon Dioxide 27 (22-32) mmol/L BUN 20 (9-20) mg/dL Creatinine 1.22 (0.66-1.25) mg/dL Estimated GFR > 60 (>60) mL/min BUN/Creatinine Ratio 16.4 (6-22) Glucose 94 (70-99) mg/dL Lactate 0.8 (0.7-2.1) mmol/L Calcium 8.9 (8.4-10.2) mg/dL Total Bilirubin 1.1 (0.2-1.3) mg/dL AST 25 (17-59) IU/L ALT 14 (<50) IU/L Alkaline Phosphatase 150 H (38-126) U/L Troponin I < 0.012 < 0.012 (0.01-0.034) ng/mL Total Protein 7.0 (6.3-8.2) g/dL Albumin 4.1 (3.5-5.0) g/dL Globulin 2.9 (1.7-4.1) g/dL Albumin/Globulin Ratio 1.4 (1.0-2.8) Urine Color Yellow Urine Appearance Clear Urine pH 6.0 (4.5-8.0) Ur Specific [place] 1.020 (1.000-1.035) Urine Protein Negative (Negative) Urine Glucose (UA) Negative (Negative) g/dL Urine Ketones Negative (NEGATIVE) Urine Occult Blood Negative (Negative) Urine Nitrate Negative (Negative) Urine Bilirubin Negative (NEGATIVE) Urine Urobilinogen 0.2 (0.2) E.U./dL Ur Leukocyte Esterase Negative (NEGATIVE) Urine RBC None seen (0-5/HPF) Urine WBC None seen (0-5/HPF) Ur Squamous Epith Cells None seen (0-5/HPF) Urine Bacteria None seen (None) Ur Culture Indicated? Cult not indicated Vol Urine Centrifuged 10ml (spun) SARS-CoV-2 (PCR) Negative (Negative) Influenza A (RT-PCR) Flu a negative (NEGATIVE) Influenza B (RT-PCR) Flu b negative (NEGATIVE) RSV (PCR) Negative (Negative) Blood Type Antibody Screen 03/21/25 03/21/25 03/21/25 Range/Units 03:05 03:33 08:37 WBC (4.5-11.0) X10^3/uL RBC (4.5-5.9) X10^6/uL Hgb 8.2 L 9.2 L (13.5-17.5) g/dL Hct 22.9 L 26.5 L (41-53) % MCV (80-100) fL MCH (26-34) PG MCHC (30-36) % RDW (11.6-14.8) % Plt Count (150-400) X10^3/uL Neut % (Auto) (50-75) % Lymph % (Auto) (25-40) % [place] % (Auto) (3-14) % Eos % (Auto) (2-4) % Baso % (Auto) (0-2) % Neut # (Auto) (9763-0342) /uL Lymph # (Auto) (1112-6556) /uL [place] # (Auto) (0-900) /uL Eos # (Auto) (0-450) /uL Baso # (Auto) (0-100) /uL VBG pH (7.33-7.43) VBG pCO2 (45-50) mmHg VBG pO2 (35-45) mmHg VBG HCO3 (24-28) mmol/L VBG Total CO2 (24-29) mmol/L VBG O2 Saturation (70-75) % VBG Base Excess (0-4) mmol/L FiO2 % % Sodium (137-145) mmol/L Potassium (3.4-5.1) mmol/L Chloride (98-107) mmol/L Carbon Dioxide (22-32) mmol/L BUN (9-20) mg/dL Creatinine (0.66-1.25) mg/dL Estimated GFR (>60) mL/min BUN/Creatinine Ratio (6-22) Glucose (70-99) mg/dL Lactate (0.7-2.1) mmol/L Calcium (8.4-10.2) mg/dL Total Bilirubin (0.2-1.3) mg/dL AST (17-59) IU/L ALT (<50) IU/L Alkaline Phosphatase (38-126) U/L Troponin I (0.01-0.034) ng/mL Total Protein (6.3-8.2) g/dL Albumin (3.5-5.0) g/dL Globulin (1.7-4.1) g/dL Albumin/Globulin Ratio (1.0-2.8) Urine Color Urine Appearance Urine pH (4.5-8.0) Ur Specific [place] (1.000-1.035) Urine Protein (Negative) Urine Glucose (UA) (Negative) g/dL Urine Ketones (NEGATIVE) Urine Occult Blood (Negative) Urine Nitrate (Negative) Urine Bilirubin (NEGATIVE) Urine Urobilinogen (0.2) E.U./dL Ur Leukocyte Esterase (NEGATIVE) Urine RBC (0-5/HPF) Urine WBC (0-5/HPF) Ur Squamous Epith Cells (0-5/HPF) Urine Bacteria (None) Ur Culture Indicated? Vol Urine Centrifuged SARS-CoV-2 (PCR) (Negative) Influenza A (RT-PCR) (NEGATIVE) Influenza B (RT-PCR) (NEGATIVE) RSV (PCR) (Negative) Blood Type O Negative Antibody Screen Negative 03/21/25 Range/Units 14:50 WBC (4.5-11.0) X10^3/uL RBC (4.5-5.9) X10^6/uL Hgb (13.5-17.5) g/dL Hct (41-53) % MCV (80-100) fL MCH (26-34) PG MCHC (30-36) % RDW (11.6-14.8) % Plt Count (150-400) X10^3/uL Neut % (Auto) (50-75) % Lymph % (Auto) (25-40) % [place] % (Auto) (3-14) % Eos % (Auto) (2-4) % Baso % (Auto) (0-2) % Neut # (Auto) (4048-2751) /uL Lymph # (Auto) (3461-7535) /uL [place] # (Auto) (0-900) /uL Eos # (Auto) (0-450) /uL Baso # (Auto) (0-100) /uL VBG pH 7.39 (7.33-7.43) VBG pCO2 38.6 L (45-50) mmHg VBG pO2 38 (35-45) mmHg VBG HCO3 24 (24-28) mmol/L VBG Total CO2 23 L (24-29) mmol/L VBG O2 Saturation 72 (70-75) % VBG Base Excess -1.1 L (0-4) mmol/L FiO2 % 21.0 % % Sodium (137-145) mmol/L Potassium (3.4-5.1) mmol/L Chloride (98-107) mmol/L Carbon Dioxide (22-32) mmol/L BUN (9-20) mg/dL Creatinine (0.66-1.25) mg/dL Estimated GFR (>60) mL/min BUN/Creatinine Ratio (6-22) Glucose (70-99) mg/dL Lactate (0.7-2.1) mmol/L Calcium (8.4-10.2) mg/dL Total Bilirubin (0.2-1.3) mg/dL AST (17-59) IU/L ALT (<50) IU/L Alkaline Phosphatase (38-126) U/L Troponin I (0.01-0.034) ng/mL Total Protein (6.3-8.2) g/dL Albumin (3.5-5.0) g/dL Globulin (1.7-4.1) g/dL Albumin/Globulin Ratio (1.0-2.8) Urine Color Urine Appearance Urine pH (4.5-8.0) Ur Specific [place] (1.000-1.035) Urine Protein (Negative) Urine Glucose (UA) (Negative) g/dL Urine Ketones (NEGATIVE) Urine Occult Blood (Negative) Urine Nitrate (Negative) Urine Bilirubin (NEGATIVE) Urine Urobilinogen (0.2) E.U./dL Ur Leukocyte Esterase (NEGATIVE) Urine RBC (0-5/HPF) Urine WBC (0-5/HPF) Ur Squamous Epith Cells (0-5/HPF) Urine Bacteria (None) Ur Culture Indicated? Vol Urine Centrifuged SARS-CoV-2 (PCR) (Negative) Influenza A (RT-PCR) (NEGATIVE) Influenza B (RT-PCR) (NEGATIVE) RSV (PCR) (Negative) Blood Type Antibody Screen Imaging Data MRI brain: Radiologist Impression: IMPRESSION: 1. No acute stroke. No intracranial metastatic disease. 2. Age-related volume loss and severe small vessel ischemic change. 3. Multiple punctate foci of hemosiderin deposition. Consider cavernous hemangiomata. Also consider amyloid angiopathy. MRI Cspine: Radiologist Impression: IMPRESSION: No abnormal enhancement is seen. No litzy findings of cervical metastatic disease can be seen. Multiple levels of underlying degenerative change can be seen. MRI Tspine: Radiologist Impression: IMPRESSION: Scattered areas of sclerotic metastatic disease can be seen, which are overall better demonstrated on the accompanying CT study. No significant abnormal enhancement can be seen. MRI Lspine: Radiologist Impression: IMPRESSION: This patient has bony sclerotic lesions, which are better demonstrated by CT. No abnormal enhancement is seen. Underlying degenerative changes are seen, which are overall worst at the L4-L5 level. 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 Has generalized weakness. Afebrile, sirs screen negative. Nonfocal neuro exam. Chest x-ray without obvious acute changes. See radiology report. Urinalysis negative. Lactate not elevated. Trial of IV fluids, saline 1 L, repeat dose, heart rate not elevated. Systolic blood pressure varied 90-100 range. 0130, unclear cause of his continued weakness. We will request blood cultures. GFR favorable, agreeable to CT chest abdomen and pelvis imaging, ordered. 0310, CT chest abdomen and pelvis with IV contrast. Impressions: ?Sclerotic lesions within the thoracic and lumbar spine suspicious for metastatic disease. Recommend whole-body bone scan if not performed previously. Incidental findings.. See tele radiology report. Patient feels too weak to go home, spinal lesions noted above. We will reach out to his oncologist Dr Rosado at [facility]. 0330, case discussed with oncology [facility] Dr. Fan, concern about spinal lesions possibly related to his generalized weakness, they did not have radiology oncology consult if it were needed, also no beds there currently. Suggest transfer to facility that has Radiology Oncology, Neurosurgery, Oncology services. If still here at change of shift upcoming 0700 he advised MRI brain without and with contrast, MRI spine without and with contrast. Can start Decadron 10 mg now, and then 6 mg IV q8 hours. IV Decadron 10 mg ordered. [employer] initiating transfers to tertiary facility. Images sent to various facilities. 0400, case discussed with [facility] intake. Await callback. 0430, case discussed with , no beds. 0500, case discussed with [facility] oncology Dr Salazar, agrees with MRI Brain/Spine later this morning, can consult if transferred. Await callback from [facility] hospitalist. 0505, case discussed with Dr Harrington radiation oncology at [facility], advises MRI studies and callback. Believes that [facility] should further consult. 0550, case discussed with [facility] hosptialist Dr Duffy, advises MRI Brain/Spine and to reach out to [place] once studdy results available. Also no current beds at [facility]. 0620, case discussed with [place], no radiology oncology reportedly on-call there. We will reach back out to Sergey Barahona. Family members relayed contact information regarding their previous oncology related providers. Dr. Rosado oncology [facility], phone [phone]. Yasmani Ortez radiation oncology [facility], phone [phone]. Also they identified a provider Kathryn Resendiz MD, reported expert of ANK-positive small cell lung cancer at [facility], at phone [phone]. 0715, consider reaching out to [facility] oncology and rad-onc today during regular hours, MRI Brain/Spine ordered, to be performed, signed out to Dr Carmen. ---- Assumed care @ 0715 with work up and disposition pending. Above notes reviewed. Pt with generalized weakness with no focal findings x 1 week. Hx of nonsmall cell lung cancer. Oncologist is @ [facility]. Work up thus far unrevealing as to the cause of his weakness with normal labs, CT chest/abd/pelvis. Oncologist consulted overnight and recommended Decadron 10mg initially then 6mg q 8 hours, MRI brain and spine and transfer. No luck finding accepting facility. At time of transfer, plan was to get noncontrast CT head and if still here, MRI as suggested. CT head: IMPRESSION: 1. Age-related volume loss and severe small vessel ischemic change. 2. No acute intracranial process. Will reach out to pt's oncologist for recommendations. Pt reports ongoing issues with weakness since a diagnosis of cancer in 2021. He lives with his and has been using walker to help with ambulation. Reports worsening weakness in his legs x 1 week but also generalized weakness. No fever, cough, chest pain, abdominal pain, N/V/D/C. No significant back pain. Hgb earlier noted to drop after 2L bolus and continuous maintenance fluids. Mildly hypotensive prior to fluids. Will recheck Hgb now. No obvious source of bleeding. Pt was placed on supplemental oxygen when sleeping but when awake he is not hypoxic. No home oxygen. Will get PT evaluation regarding his weakness. Paged Dr. Rosado (oncologist in [place]) to discuss plan of care. MRI results reviewed - no significant new spinal findings to explain cause of his weakness. Spoke to oncologist [employer] application developer for [facility] who works with Dr. Rosado - felt that since MRI findings showed no new spine lesions, transfer was not indicated and pt can be followed by Dr. Rosado in the office. PT evaluation ordered and PT at bedside but pt is too sleepy/lethargic to cooperate/participate. Discussed findings with at bedside and plan of care. She reports yesterday that weakness was so bad it required 3 person assist for him to stand. Did not feel safe with discharge home. Discussed case with Dr. Art (hospitalist @ [place]) - accepts pt for admission. Discharge Plan Departure Patient Disposition: Admitted As Inpatient Clinical Impression: Weakness, Anemia in chronic illness Admit Date/Time: 03/21/25 16:35 Admit Provider: Albert Art
[2025-03-20 19:29] LABS: Influenza A - CEPHEID Flu A NEGATIVE (NEGATIVE); Influenza B - CEPHEID Flu B NEGATIVE (NEGATIVE)
[2025-03-20 19:33] LABS: COVID-19 CEPHEID 4-PLEX PCR Negative (Negative)
[2025-03-20 22:19] LABS: Appearance Urine UA CLEAR; Bilirubin Urine UA NEGATIVE (NEGATIVE); Color Urine UA YELLOW; Glucose Urine UA NEGATIVE (Negative); Ketones Urine UA NEGATIVE (NEGATIVE); Leukocyte Esterase Urine UA NEGATIVE (NEGATIVE); Nitrite Urine UA NEGATIVE (Negative); Occult Blood Urine UA NEGATIVE (Negative); Protein Urine UA NEGATIVE (Negative); Specific Gravity Urine UA 1.020 (1.000-1.035); Urobilinogen Urine UA 0.2 E.U./dL (0.2); pH Urine UA 6.0 (4.5-8.0)
[2025-03-20 22:55] LABS: Culture Indicated Urine Cult Not Indicated
[2025-03-21] VITALS (40 sets, daily range): BP systolic 90–123; BP diastolic 45–58; PULSE 68–86; RESP 4–28; TEMP 36.2–36.4; O2SAT 88–100; BMI 26.8
--- NOTE | 2025-03-21 01:35 | DI.CT.S_ITS ---
PROCEDURE: CT CHEST ABD PEL W CON INDICATIONS: gen weakness, hx lung cancer stage 4 TECHNIQUE: After the administration of intravenous contrast, 5 mm thick sections acquired from the lung apices to the symphysis. 5 mm coronal and sagittal reformats were performed, with additional 7 mm MIP reformats through the lungs. For radiation dose reduction, the following was used: automated exposure control, adjustment of mA and/or kV according to patient size. COMPARISON: [facility], CT, CT ABDOMEN PELVIS WITH CONTRAST, 04/04/2022, 13:57. [facility], CT, CT CHEST WITH CONTRAST, 03/22/2022, 16:14. FINDINGS: Image quality: Diagnostic Lungs and pleura: Scattered areas of scarring and opacities, most confluent in the right lower lung. No discrete round mass identified. Emphysematous changes. Mediastinum, heart, and esophagus: Moderate atherosclerotic calcifications, with narrowing particularly noted in the left subclavian. Normal heart size. Coronary calcifications. No enlarged lymph nodes by size criteria. Decreased lymphadenopathy compared to 2021 study. Chest wall and thyroid: A right port catheter is present, terminating SVC. Visualized thyroid is unremarkable Liver: Multiple subcentimeter lesions are present, indeterminate but most commonly cysts. Attention on follow-up given oncologic history. A segment 4 definite cyst is also seen. Gallbladder and biliary system: Gallbladder is unremarkable. Nondilated biliary system Pancreas: No ductal dilation Spleen: Nonenlarged Adrenals: No discrete nodules Decreased right adrenal nodularity compared to 202 Kidneys: Right mid renal cyst. Subcentimeter lesions are too small to characterize, usually cysts. No hydronephrosis or solid renal mass Vessels and lymph nodes: No abdominal aortic aneurysm. The main portal vein appears patent. No lymphadenopathy by size criteria in the abdomen/pelvis. Bowel and peritoneum: No small bowel obstruction. 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 Colonic diverticulosis. Moderate overall fecal loading. No drainable abscess or ascites. Body wall: Small fat containing inguinal hernias. Pelvis: Bladder is unremarkable. Heterogeneous prostate enhancement, not well assessed on this study. Bones: Degenerative osseous changes. Scattered sclerotic lesions of the lumbar and thoracic spine, for example along the superior right half of the T1 vertebral body. IMPRESSION: Sclerotic spine lesions suspicious for metastatic disease. Scattered atelectasis/scarring with thickened opacities in the lungs, most obvious in the right lower lobe. Close attention on follow-up suggested given malignancy history. Decreased hilar mediastinal lymphadenopathy and right adrenal nodularity compared to 202. Other findings above. No significant changes from the preliminary report. Dictated by: Yannick Pedroza M.D. on 03/21/2025 at 8:10 Approved by: Yannick Pedroza M.D. on 03/21/2025 at 8:18
--- NOTE | 2025-03-21 01:37 | PC.NURSE ---
Pt did not tolerate ambulation trial. Pt is too weak to sit on the side of the bed. Pt was max 3 person assist back to position of comfort. Incontinent care given and linens changed.
[2025-03-21 01:52] LABS: Troponin I < 0.012 ng/mL (0.01-0.034)
[2025-03-21 02:20] LABS: Troponin I < 0.012 ng/mL (0.01-0.034)
[2025-03-21 03:17] LABS: Hematocrit 22.9 % (41-53); Hemoglobin 8.2 g/dL (13.5-17.5)
[2025-03-21] MEDS: SODIUM CHLORIDE 0.9% 1,000 ML 250 ML IV (03:57)
[2025-03-21] MEDS: DEXAMETHASONE 10 MG/ML VIAL IV (03:57)
--- NOTE | 2025-03-21 05:10 | DI.MRI.S_ITS ---
PROCEDURE: MR CERVICAL SPINE WO/W CON INDICATIONS: weak, hx lung CA stage4 TECHNIQUE: Noncontrast sagittal T1 spin echo and T2 fast spin echo, sagittal STIR, foraminal oblique sagittal T2 fast spin echo, axial gradient echo or T2 fast spin echo through the cervical spine. After the administration of contrast, axial and sagittal T1 spin echo with fat saturation through the cervical spine. COMPARISON: [facility], CT, CT CHEST ABD PEL W CON, 03/21/2025, 2:01. [facility], CT, CT HEAD/BRAIN WO/W CON, 03/21/2025, 7:25. [facility], MR, MR LUMBAR SPINE WO/W CON, 03/21/2025, 9:31. [facility], MR, MR THORACIC SPINE WO/W CON, 03/21/2025, 9:31. [facility], MR, MR HEAD/BRAIN WO/W CON, 03/21/2025, 9:31. FINDINGS: Image quality: This examination is limited by involuntary motion artifact. Alignment and curvature: There is minimal retrolisthesis seen at the C3-C4 level. Marrow: Marrow is normal in overall signal, without suspicious enhancement. Spinal cord: Visualized spinal cord has normal size and signal. No cerebellar tonsillar herniation. No abnormal intramedullary enhancement. Paraspinous soft tissues: No paravertebral masses or suspicious enhancement. C2-3: Mild loss of disc height is seen. Loss of disc signal is seen. Moderate generalized disc osteophyte complex is seen. At least moderate facet hypertrophy is seen. There is at least moderate bilateral neural foraminal narrowing seen. No central canal narrowing is seen. C3-4: Moderate loss of disc height is seen. Loss of disc signal is seen. Moderate generalized disc osteophyte complex is seen. There is a superimposed central disc osteophyte protrusion. At least moderate facet hypertrophy is seen. There is moderate right-sided and at least moderate left-sided neural foraminal narrowing. Mild central canal narrowing is seen. C4-5: The disc height is well-preserved. Loss of disc signal is seen at this level. Moderate generalized disc osteophyte complex is seen. There is at least moderate facet hypertrophy. There is at least moderate bilateral neural foraminal narrowing. No central canal narrowing is seen. C5-6: At least moderate loss of disc height and disc signal can be seen. Moderate disc osteophyte complex is seen, which is eccentric to the right. Moderate facet joint hypertrophy is seen. There the is moderate to severe bilateral neural foraminal narrowing, right worse than left. Mild to moderate central canal narrowing is seen. C6-7: Moderate loss of disc height is seen. Loss of disc signal is seen. Moderate generalized disc osteophyte complex is seen. There is a superimposed central disc osteophyte protrusion. Mild to moderate facet hypertrophy can be seen. There is at least moderate bilateral neural foraminal narrowing. Moderate central canal narrowing is seen. There is associated mass effect upon the ventral spinal cord. C7-T1: No significant abnormality is seen. IMPRESSION: No abnormal enhancement is seen. No litzy findings of cervical metastatic disease can be seen. Multiple levels of underlying degenerative change can be seen. Dictated by: Maximino Zuniga M.D. on 03/21/2025 at 10:31 Approved by: Maximino Zuniga M.D. on 03/21/2025 at 10:36
--- NOTE | 2025-03-21 05:10 | DI.MRI.S_ITS ---
PROCEDURE: MR LUMBAR SPINE WO/W CON INDICATIONS: weak, hx lung cancer stage4 TECHNIQUE: Noncontrast sagittal T1 spin echo and T2 fast spin echo, sagittal STIR, axial T1 and T2 fast spin echo through the lumbar spine. In cases with scoliosis, additional coronal T2 fast spin echo may be performed. After the administration of contrast, sagittal and axial T1 spin echo with fat saturation through the lumbar spine. COMPARISON: [facility], MR, MR HEAD/BRAIN WO/W CON, 03/21/2025, 9:31. [facility], MR, MR CERVICAL SPINE WO/W CON, 03/21/2025, 9:31. [facility], MR, MR THORACIC SPINE WO/W CON, 03/21/2025, 9:31. [facility], CT, CT CHEST ABD PEL W CON, 03/21/2025, 2:01. [facility], CT, CT ABDOMEN PELVIS WITH CONTRAST, 04/04/2022, 13:57. FINDINGS: Image quality: This examination is limited by involuntary motion artifact. Alignment and curvature: There is normal bony alignment. Marrow: On the accompanying CT study, this patient has several sclerotic bony lesions. These can be seen on the current study, including at the inferior endplate of L3, although the sclerotic foci are better seen by CT. Spinal cord: Conus medullaris terminates at the L1 level. Visualized spinal cord demonstrates normal signal, without suspicious enhancement. Paraspinous soft tissues: No paravertebral masses or abnormal enhancement. T12-L1: Normal appearance. L1-L2: Normal appearance. L2-L3: The disc height and disk signal are relatively well-preserved. A mild degree of generalized disc osteophyte complex is seen. Mild to moderate facet hypertrophy is seen. Mild bilateral neural foraminal narrowing is seen. Minimal central canal narrowing is seen. L3-L4: The disc height is well-preserved. Loss of disc signal is seen at this level. Moderate generalized disc bulge is seen. There is a superimposed central disc protrusion. Moderate facet joint hypertrophy is seen. There is at least moderate bilateral neural foraminal narrowing. Moderate central canal narrowing is seen. L4-L5: The disc height is well-preserved. Loss of disc signal is seen at this level. Moderate generalized disc bulge is seen. There is a superimposed central disc osteophyte protrusion. At least moderate facet hypertrophy is seen. There is at least moderate bilateral neural foraminal narrowing, right worse than left. Moderate central canal narrowing is seen. L5-S1: The disc height and disk signal are relatively well-preserved. Mild generalized disc bulge is seen. Moderate facet joint hypertrophy is seen. Moderate bilateral neural foraminal narrowing is seen. Mild central canal narrowing is seen. IMPRESSION: This patient has bony sclerotic lesions, which are better demonstrated by CT. No abnormal enhancement is seen. Underlying degenerative changes are seen, which are overall worst at the L4-L5 level. Dictated by: Maximino Zuniga M.D. on 03/21/2025 at 10:41 Approved by: Maximino Zuniga M.D. on 03/21/2025 at 10:44
--- NOTE | 2025-03-21 05:10 | DI.MRI.S_ITS ---
PROCEDURE: MR HEAD/BRAIN WO/W CON INDICATIONS: brain mets, spinal mets, weak, hx lung CA stage4 TECHNIQUE: Noncontrast axial T1 spin echo, axial T2 fast spin echo, sagittal and axial FLAIR, coronal T2 fast spin echo, axial gradient echo, axial diffusion and ADC through the brain. After the administration of contrast, axial and coronal and sagittal T1 spin echo with fat saturation through the brain. COMPARISON: [facility], CT, CT CHEST ABD PEL W CON, 03/21/2025, 2:01. [facility], MR, MR THORACIC SPINE WO/W CON, 03/21/2025, 9:31. [facility], CT, CT HEAD/BRAIN WO/W CON, 03/21/2025, 7:25. FINDINGS: Image quality: Excellent. CSF spaces: Basal cisterns are patent. No extra-axial fluid collections. Ventricles are normal in size and shape. Brain: No midline shift. No intracranial bleeds or masses. No abnormal intracranial enhancement. There is cerebral volume loss for age. There is severe periventricular white matter chronic small vessel ischemic change. The brainstem appears normal. Diffusion-weighted images demonstrate no acute infarct. No chronic ischemic insults. Normal intravascular flow voids are present. There are multiple punctate foci of hemosiderin deposition. Consider cavernous hemangiomas with associated tiny hemorrhages as a possibility. Skull and face: Calvarial marrow is normal in signal. Orbits appear normal. Sinuses: Sinuses and mastoids appear clear. IMPRESSION: 1. No acute stroke. No intracranial metastatic disease. 2. Age-related volume loss and severe small vessel ischemic change. 3. Multiple punctate foci of hemosiderin deposition. Consider cavernous hemangiomata. Also consider amyloid angiopathy. Dictated by: Rufus Miller M.D. on 03/21/2025 at 11:22 Approved by: Rufus Miller M.D. on 03/21/2025 at 11:27
--- NOTE | 2025-03-21 05:10 | DI.MRI.S_ITS ---
PROCEDURE: MR THORACIC SPINE WO/W CON INDICATIONS: weak, hx lung cancer stage4 TECHNIQUE: Noncontrast sagittal T1 spin echo and T2 fast spin echo, sagittal STIR, axial T1 and T2 fast spin echo through the thoracic spine. After the administration of contrast, axial and sagittal T1 spin echo with fat saturation through the thoracic spine. COMPARISON: [facility], CT, CT CHEST WITH CONTRAST, 03/22/2022, 16:14. [facility], MR, MR HEAD/BRAIN WO/W CON, 03/21/2025, 9:31. [facility], MR, MR CERVICAL SPINE WO/W CON, 03/21/2025, 9:31. [facility], MR, MR LUMBAR SPINE WO/W CON, 03/21/2025, 9:31. [facility], CT, CT CHEST ABD PEL W CON, 03/21/2025, 2:01. FINDINGS: Image quality: This examination is limited by involuntary motion artifact. Alignment and curvature: There is normal bony alignment. Marrow: On the accompanying CT study, this patient has several sclerotic lesions. These lesions are overall better demonstrated on the CT study, although they can be seen on the current examination, including along the posterior aspect of the T3 and T5 levels. Within T10, there is a benign vertebral body hemangioma present. Spinal cord: Visualized spinal cord is of normal signal and size, without abnormal enhancement. Paraspinous soft tissues: There is atelectasis seen at the right lung base. Miscellaneous: Underlying degenerative changes are seen, scattered levels of mild disc space narrowing. No significant neural foraminal or central canal narrowing can be seen. IMPRESSION: Scattered areas of sclerotic metastatic disease can be seen, which are overall better demonstrated on the accompanying CT study. No significant abnormal enhancement can be seen. Dictated by: Maximino Zuniga M.D. on 03/21/2025 at 10:36 Approved by: Maximino Zuniga M.D. on 03/21/2025 at 10:40
--- NOTE | 2025-03-21 06:44 | PC.NURSE ---
GENERAL SUPERINTENDENT note: Attempting to find placement for patient. Called the following hospitals with the following responses: [facility]: 0230 spoke w/ Alejandra. Patient gets treatment there, but after Dr. Ramsay spoke to the oncologist, we were told they didn't have beds and they'd need radiology oncology, which they do not have. [facility]: 0340 spoke w/ Bucky. They don't have beds. [facility]: 0344 spoke w/ Jesusita. [facility]: 0351 spoke w/ Lisha 0521 [facility] called with their hospitalist. Dr. Ramsay was in a procedure. 0534 called [facility] back, Dr. Ramsay spoke w/ their hospitalist. Recommended to call [facility] back 0623 called [facility] back, spoke w/ Tejas. Refusing saying they don't have rad oncology. Dr. Ramsay spoke with [facility]. 0628 [facility] spoke w/ Jesusita. Jesusita was going to emiliana Cle[employer] and Emiliana who were working on the case. 0655 [facility] called back, spoke with Emiliana. Emiliana said Dr. Duffy (their hospitalist) said that [facility] has rad onc. Call their nursing sup to get clarification. Emiliana said that her job class doesn't do that and we don't call outside facilities for that stuff. Told her I would tell my day shift folks what was happening. Thanked her for her help
--- NOTE | 2025-03-21 06:45 | PC.NURSE ---
Incontinent care provided and barrier cream applied. Skin intact. Linens changed. Pt turned to left side.
--- NOTE | 2025-03-21 07:09 | DI.CT.S_ITS ---
PROCEDURE: CT HEAD/BRAIN WO/W CON INDICATIONS: weakness generalized TECHNIQUE: 4.5 mm thick angled axial sections acquired from the foramen magnum to the vertex both before and after the administration of intravenous contrast, with coronal and sagittal reformats. For radiation dose reduction, the following was used: automated exposure control, adjustment of mA and/or kV according to patient size. COMPARISON: None. FINDINGS: Image quality: Excellent. CSF spaces: Basal cisterns are patent. No extra-axial fluid collections. Ventricles are symmetric in size and shape. Brain: No midline shift. No intracranial bleeds or masses. No abnormal intracranial enhancement. There is cerebral volume loss for age. There is severe periventricular white matter chronic small vessel ischemic change. There is intracranial internal carotid artery atherosclerosis. Skull and face: Calvarium and visualized facial bones appear intact, without suspicious lesions. Sinuses: Right maxillary sinus mucosal thickening. Visualized sinuses and mastoids are otherwise clear. IMPRESSION: 1. Age-related volume loss and severe small vessel ischemic change. 2. No acute intracranial process. Dictated by: Rufus Miller M.D. on 03/21/2025 at 8:04 Approved by: Rufus Miller M.D. on 03/21/2025 at 8:05
[2025-03-21 08:47] LABS: Hematocrit 26.5 % (41-53); Hemoglobin 9.2 g/dL (13.5-17.5)
--- NOTE | 2025-03-21 13:36 | PT-IP ANOTE ---
PT eval order received. checked on pt this morning and was not available and was out for MRI. checked back on pt again after a few hours and pt eating lunch. will check back later.
[2025-03-21 14:53] LABS: Base Excess VBG -1.1 mmol/L (0-4); HCO3 VBG 24 mmol/L (24-28); Oxygen Saturation VBG 72 % (70-75); PCO2 VBG 38.6 mmHg (45-50); PO2 VBG 38 mmHg (35-45); Total CO2 VBG 23 mmol/L (24-29); pH VBG 7.39 (7.33-7.43)
--- NOTE | 2025-03-21 15:41 | PT-IP ANOTE ---
checked back on pt this afternoon and spouse in room. pt asleep. talked with spouse and stated that pt needs PT. informed spouse regarding PT eval and mobility assessment and spouse consented to do PT. obtained PLOF and home set up. Attempted to wake pt up and pt able to keep eyes open for 2-3 seconds and went back to sleep. Pt found to be wet in bed and needing brief change. nurse alerted. PT started setting up for pt for mobility assessment and possibly assisting NAC for pt's brief change. pt requiring constant cues to stay awake. spouse then stated that pt cannot be move and should not stand up. asked spouse regarding PT consent again due to spouse agreed for pt to have PT but then also does not want PT to move pt. spouse stated that PT can do things in bed. informed spouse that PT needs to do mobility assessment and that involves pt to sit up and possibly standing if able. spouse then stated that she wants to be sure first that pt's bone is stable due to CA and wants to hold of on PT. talked to ED doctor and stated that pt's MRI are fine and pt medically stable to do PT. informed ED doctor regarding spouse's concerns and pt also lethargic at this time to be able to participate to do PT. PT eval not completed and hold off for today. will f/u.
--- NOTE | 2025-03-21 15:58 | PC.NURSE ---
aware of heparin flush order; okay with this. Rakesh CHAVEZ aware of pt heparin flush order.
--- NOTE | 2025-03-21 16:51 | PC.NURSE ---
Patient report given to Jose Miranda RN. Patient port was flushed with heparin post discontinuing of fluid.
--- NOTE | 2025-03-21 17:39 | PM.HP.1 ---
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 Rosado [facility] telephone [phone] and pager [phone] Who he last saw 4 months ago, was scheduled for outpatient follow up MRI brain today, but felt too weak. Has generalized weakness for the last 1 week, increased today. Extensive workup was done in the emergency department with CT and an MRI imaging of brain thoracic spine lumbar spine abdomen and pelvis. Pertinent finding is on MRI of the brain demonstrates demonstrates the following: There are multiple punctate foci of hemosiderin deposition. Consider cavernous hemangiomas with associated tiny hemorrhages as a possibility. The remainder of the workup hemogram chemistries were unremarkable Patient was admitted for encephalopathy secondary to vasogenic cerebral edema from innumerable punctate foci of microhemorrhages. Dr. Carbajal was paged awaiting response. 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 alectinib 600 mg twice daily Loading dose Decadron with good response 10 mg and continue 4 mg IV q.6 hours Continue alectinib 600 mg twice daily Do not resuscitate DVT prophylaxis with SCDs only due to hemorrhage Code status: Do not resuscitate 120 minutes were involved in managing this patient including consultation with references colleagues laboratory and imaging data [facility] Medical History Healthy adult Sinusitis Social History marital status: household members: spouse, children and other Smoking Status: Never smoker alcohol intake: never Meds Home Medications and Allergies Home Medications ?Medication ?Instructions ?Recorded ?Confirmed ?Type alectinib 150 mg capsule (Alecensa) See Rx Instructions PO BID cancer 03/21/25 03/21/25 History calcium carb-D3-mag [id number] 1 tab PO DAILY 03/21/25 03/21/25 History duloxetine 30 mg capsule,delayed 30 mg PO BID 03/21/25 03/21/25 History release finasteride 5 mg tablet 5 mg PO DAILY 03/21/25 03/21/25 History methylphenidate HCl 5 mg tablet 5 mg PO DAILY PRN wake 03/21/25 03/21/25 History mirabegron 50 mg tablet,extended 50 mg PO DAILY 03/21/25 03/21/25 History release 24 hr (Myrbetriq) pantoprazole 40 mg tablet,delayed 40 mg PO DAILY 03/21/25 03/21/25 History release potassium chloride 10 mEq 20 meq PO DAILY 03/21/25 03/21/25 History capsule,extended release tadalafil 2.5 mg tablet 2.5 mg PO DAILY 03/21/25 03/21/25 History tamsulosin 0.4 mg capsule 0.8 mg PO DAILY 03/21/25 03/21/25 History Allergies Allergy/AdvReac Type Severity Reaction Status Date / Time chlorhexidine Allergy Verified 03/20/25 16:22 tegaderm Allergy Severe Rash Uncoded 03/20/25 16:22 Exam Vital Signs (past 8 hours): - 03/21/25 11:34 03/21/25 12:00 03/21/25 12:30 Temperature Pulse Rate 80 81 Respiratory Rate 18 14 Blood Pressure Pulse Oximetry 88 L 99 94 Oxygen Delivery Method Nasal Cannula Nasal Cannula Oxygen Flow Rate 2 3 03/21/25 13:00 03/21/25 13:30 03/21/25 13:51 Temperature Pulse Rate 81 79 Respiratory Rate 19 28 H Blood Pressure 106/53 L Pulse Oximetry 94 93 Oxygen Delivery Method Nasal Cannula Nasal Cannula Oxygen Flow Rate 3 3 03/21/25 13:51 03/21/25 14:00 03/21/25 14:00 Temperature Pulse Rate 71 74 Respiratory Rate 15 21 Blood Pressure 99/54 L Pulse Oximetry 99 99 Oxygen Delivery Method Nasal Cannula Nasal Cannula Oxygen Flow Rate 3 3 03/21/25 14:30 03/21/25 14:30 03/21/25 15:00 Temperature Pulse Rate 75 Respiratory Rate 18 Blood Pressure 108/56 L 111/58 L Pulse Oximetry 99 Oxygen Delivery Method Nasal Cannula Oxygen Flow Rate 3 03/21/25 15:00 03/21/25 15:30 03/21/25 15:30 Temperature Pulse Rate 74 73 Respiratory Rate 17 18 Blood Pressure 112/54 L Pulse Oximetry 99 99 Oxygen Delivery Method Nasal Cannula Nasal Cannula Oxygen Flow Rate 3 3 03/21/25 16:00 03/21/25 16:00 03/21/25 16:30 Temperature Pulse Rate 68 Respiratory Rate 16 Blood Pressure 104/53 L 110/54 L Pulse Oximetry 98 Oxygen Delivery Method Nasal Cannula Oxygen Flow Rate 3 03/21/25 16:30 03/21/25 17:00 Temperature 97.2 F L Pulse Rate 72 75 Respiratory Rate 17 Blood Pressure 123/56 L Pulse Oximetry 94 Oxygen Delivery Method Nasal Cannula Oxygen Flow Rate 3 Oxygen Delivery Method Nasal Cannula Oxygen Flow Rate 3 Objective Labs 03/21/25 08:37 03/20/25 18:31 Labs: Laboratory Results - last 24 hr 03/20/25 03/20/25 03/21/25 18:31 22:13 01:13 WBC 13.1 H RBC 2.92 L Hgb 9.6 L Hct 28.1 L MCV 96.2 MCH 32.8 MCHC 34.1 RDW 14.5 Plt Count 294 Neut % (Auto) 71.1 Lymph % (Auto) 17.0 L [place] % (Auto) 5.9 Eos % (Auto) 5.1 H Baso % (Auto) 0.9 Neut # (Auto) 9300 H Lymph # (Auto) 2200 [place] # (Auto) 800 Eos # (Auto) 700 H Baso # (Auto) 100 VBG pH VBG pCO2 VBG pO2 VBG HCO3 VBG Total CO2 VBG O2 Saturation VBG Base Excess FiO2 % Sodium 140 Potassium 4.1 Chloride 105 Carbon Dioxide 27 BUN 20 Creatinine 1.22 Estimated GFR > 60 BUN/Creatinine Ratio 16.4 Glucose 94 Lactate 0.8 Calcium 8.9 Total Bilirubin 1.1 AST 25 ALT 14 Alkaline Phosphatase 150 H Troponin I < 0.012 < 0.012 Total Protein 7.0 Albumin 4.1 Globulin 2.9 Albumin/Globulin Ratio 1.4 Urine Color Yellow Urine Appearance Clear Urine pH 6.0 Ur Specific [place] 1.020 Urine Protein Negative Urine Glucose (UA) Negative Urine Ketones Negative Urine Occult Blood Negative Urine Nitrate Negative Urine Bilirubin Negative Urine Urobilinogen 0.2 Ur Leukocyte Esterase Negative Urine RBC None seen Urine WBC None seen Ur Squamous Epith Cells None seen Urine Bacteria None seen Ur Culture Indicated? Cult not indicated Vol Urine Centrifuged 10ml (spun) SARS-CoV-2 (PCR) Negative Influenza A (RT-PCR) Flu a negative Influenza B (RT-PCR) Flu b negative RSV (PCR) Negative Blood Type Antibody Screen 03/21/25 03/21/25 03/21/25 03:05 03:33 08:37 WBC RBC Hgb 8.2 L 9.2 L Hct 22.9 L 26.5 L MCV MCH MCHC RDW Plt Count Neut % (Auto) Lymph % (Auto) [place] % (Auto) Eos % (Auto) Baso % (Auto) Neut # (Auto) Lymph # (Auto) [place] # (Auto) Eos # (Auto) Baso # (Auto) VBG pH VBG pCO2 VBG pO2 VBG HCO3 VBG Total CO2 VBG O2 Saturation VBG Base Excess FiO2 % Sodium Potassium Chloride Carbon Dioxide BUN Creatinine Estimated GFR BUN/Creatinine Ratio Glucose Lactate Calcium Total Bilirubin AST ALT Alkaline Phosphatase Troponin I Total Protein Albumin Globulin Albumin/Globulin Ratio Urine Color Urine Appearance Urine pH Ur Specific [place] Urine Protein Urine Glucose (UA) Urine Ketones Urine Occult Blood Urine Nitrate Urine Bilirubin Urine Urobilinogen Ur Leukocyte Esterase Urine RBC Urine WBC Ur Squamous Epith Cells Urine Bacteria Ur Culture Indicated? Vol Urine Centrifuged SARS-CoV-2 (PCR) Influenza A (RT-PCR) Influenza B (RT-PCR) RSV (PCR) Blood Type O Negative Antibody Screen Negative 03/21/25 14:50 WBC RBC Hgb Hct MCV MCH MCHC RDW Plt Count Neut % (Auto) Lymph % (Auto) [place] % (Auto) Eos % (Auto) Baso % (Auto) Neut # (Auto) Lymph # (Auto) [place] # (Auto) Eos # (Auto) Baso # (Auto) VBG pH 7.39 VBG pCO2 38.6 L VBG pO2 38 VBG HCO3 24 VBG Total CO2 23 L VBG O2 Saturation 72 VBG Base Excess -1.1 L FiO2 % 21.0 % Sodium Potassium Chloride Carbon Dioxide BUN Creatinine Estimated GFR BUN/Creatinine Ratio Glucose Lactate Calcium Total Bilirubin AST ALT Alkaline Phosphatase Troponin I Total Protein Albumin Globulin Albumin/Globulin Ratio Urine Color Urine Appearance Urine pH Ur Specific [place] Urine Protein Urine Glucose (UA) Urine Ketones Urine Occult Blood Urine Nitrate Urine Bilirubin Urine Urobilinogen Ur Leukocyte Esterase Urine RBC Urine WBC Ur Squamous Epith Cells Urine Bacteria Ur Culture Indicated? Vol Urine Centrifuged SARS-CoV-2 (PCR) Influenza A (RT-PCR) Influenza B (RT-PCR) RSV (PCR) Blood Type Antibody Screen Assessment & Plan Time-Based Coding :: [TOTAL MINUTES] spent with patient and on the chart (including review of chart, obtaining history, exam, reviewing outside data, placing orders, documenting exam and treatment plan, and counseling patient) on [DATE]. Quality VTE Deep Vein Thrombosis/Pulmonary Embolism Present on Admission: No
[2025-03-21] MEDS: DEXAMETHASONE 4 MG/ML VIAL IV ×2 (17:40→23:56)
[2025-03-21] MEDS: DEXTROSE 5%-0.9% NS 1,000 ML 100 ML IV (17:41)
[2025-03-22] MEDS: DEXTROSE 5%-0.9% NS 1,000 ML 100 ML IV ×3 (03:26→22:43)
[2025-03-22 05:15] LABS: Add Manual Diff / Slide Review NO; Hematocrit 26.5 % (41-53); Hemoglobin 9.3 g/dL (13.5-17.5); Lymphocytes Absolute Auto 2500 /uL (1100-4500); Mean Corpuscular HGB Conc 35.1 % (30-36); Mean Corpuscular Hemoglobin 33.6 PG (26-34); Mean Corpuscular Volume 95.8 fL (80-100); Platelet Count 262 X10^3/uL (150-400)
[2025-03-22] MEDS: DEXAMETHASONE 4 MG/ML VIAL IV ×3 (05:31→18:05)
[2025-03-22 05:38] LABS: Alanine Aminotransferase 15 IU/L (<50); Albumin 3.7 g/dL (3.5-5.0); Albumin Globulin Ratio 1.4 (1.0-2.8); Alkaline Phosphatase 130 U/L (38-126); Blood Urea Nitrogen 20 mg/dL (9-20); Calcium 8.2 mg/dL (8.4-10.2); Carbon Dioxide 24 mmol/L (22-32); Chloride 109 mmol/L (98-107); Estimated Glomerular Filt Rate > 60 mL/min (>60); Globulin 2.7 g/dL (1.7-4.1); Glucose 171 mg/dL (70-99); HEMOLYSIS 23 (0-50); Potassium 4.3 mmol/L (3.4-5.1); Sodium 140 mmol/L (137-145); Total Protein 6.4 g/dL (6.3-8.2)
[2025-03-22] MEDS: ALECTINIB 150 MG 600 EACH PO ×2 (09:01→20:14)
[2025-03-22 11:51] VITALS: BP 132/51; PULSE 70; RESP 16; TEMP 36.2; O2SAT 97
--- NOTE | 2025-03-22 12:00 | PT.IIE ---
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, initial encounter (03/21/25) Medical History (Last Reviewed 12/10/20 @ 21:28 by Elham Lund PA-C) Healthy adult Sinusitis Physical Therapy Inpatient Evaluation/Re-Eval M1 PT/OT-IP Prior Functional Status Start: 03/21/25 18:11 Freq: NEEDED Status: Active Protocol: Document 03/22/25 12:00 AB (Rec: 03/22/25 13:45 AB Desktop) Medical Review Prior Functional Status Medical History Yes Reviewed Communication able to respond to questions and instructions inconsistently and needed increase time to respond Mobility and Gait Spouse provided pt's PLOF and home set up: stated that pt was able to ambulate using FWW but has been getting weak for the past few months and was only able to transfer with assist and occasionally will need 2 person to transfer him from bed<>w/c Social History Household Members spouse,children,other Living Arrangements House Number of Floors ( Two Floors Floors) Number of Stairs To no steps to enter and has a chairlift to get to other Enter/Railing? levels of the house Home Environment Standard Height Toilet,Tub/Shower Home Equipment Front Wheel Walker,Manual Wheelchair,Hand Held Shower, Bed Rails,Grab Bars In Shower M2 PT-IP Current Condition Start: 03/21/25 18:11 Freq: NEEDED Status: Active Protocol: Document 03/22/25 12:00 AB (Rec: 03/22/25 13:45 AB Desktop) Physical Therapy Current Condition Current Condition Evaluation Date 03/22/25 Treatment Diagnosis encephalopathy; generalized weakness Onset Date 03/20/25 M3 PT-IP Subjective Start: 03/21/25 18:11 Freq: NEEDED Status: Active Protocol: Document 03/22/25 12:00 AB (Rec: 03/22/25 13:45 AB Desktop) Subjective Physical Therapy Visit Type Type Initial Evaluation Visit Start Time 12:00 Visit Stop Time 12:40 Number of SENIOR FIELD SERVICE ENGINEER Visits 0 Therapy Pain Assessment Pain Present Pain Present Denied Pain M4 PT-IP Mobility and Gait Start: 03/21/25 18:11 Freq: NEEDED Status: Active Protocol: Document 03/22/25 12:00 AB (Rec: 03/22/25 13:45 AB Desktop) PT-Bed Mobility Assessment Supine to Sit Supine to Sit Maximum Assistance,2 Person Assistance,Head of Bed Elevated,Bedrails Scooting Scooting to Edge of Maximum Assistance Bed PT-Transfer Assessment Sit to and From Stand Sit to and from Maximum Assistance,2 Person Assistance,Use of Upper Stand Extremities Equipment Transfer Assistive Gait Belt,Front Wheeled Walker Device Orthotic/Prosthetic No Devices or Brace: Transfers Transfer Destination Chair Transfer Technique Stand Step Pivot Transfer Ability Level of Assist Maximum Assistance,2 Person Assistance,Use of Upper Extremities Comments Mobility Comments pt in bed and family in with pt. family stepped out for pt to do PT. BP: 110/54 O2 sat: 97% and OR: 86. completed supine to sit with HOB elevated max A x 2 and max cues. pt with difficulty following directions requiring increase time and max cues with all tasks. increase retrolean in sitting requiring max A for sitting balance. max A for scooting to EOB. no c/o dizziness. sit to stand max A x 2 and max cues and step transfer to chair using FWW max A x 2 and max cues. presents with overall body stiffening and required assist with weight shifting and assist to move LE during transfers. positioned pt on the chair. call light and table placed within reach. informed nurse and NAC that pt will need a chair alarm PT-Balance Assessment Sitting Balance and Reactions Static Sitting Fair Balance Ability Dynamic Sitting Fair Balance Ability Standing Balance and Reactions Static Standing Poor Balance Ability Dynamic Standing Poor Balance Ability Device Used FWW M5 PT-IP Objective Assessments Start: 03/21/25 18:11 Freq: NEEDED Status: Active Protocol: Document 03/22/25 12:00 AB (Rec: 03/22/25 13:45 AB Desktop) Orientation Orientation/Cognition Level of Alertness Confusional State Orientation Name Language Function Hard of Hearing Ability Safety Awareness Decreased Safety Awareness Memory Description Short Term Impaired,Skilled Nursing Impaired Strength Lower Extremity Strength Assessment Bilaterally Impaired Hip 3+/5 Knee 3+/5 Muscle Tone Muscle Tone WNL Yes M6 PT-IP Treatment Start: 03/21/25 18:11 Freq: NEEDED Status: Active Protocol: Document 03/22/25 12:00 AB (Rec: 03/22/25 13:45 AB Desktop) Physical Therapy Treatment Education Education Provided Safety M7 PT-IP Assessment and Plan Start: 03/21/25 18:11 Freq: NEEDED Status: Active Protocol: Document 03/22/25 12:00 AB (Rec: 03/22/25 13:45 AB Desktop) PT Summary Assessment and Plan Potential Rehabilitation Fair Potential Status of Condition Evolving at Evaluation Summary Impairments Pain,ROM,Strength,Balance,Coordination,Sensation,Tone, Cognition,Bed Mobility,Transfers,Gait,Activity Tolerance Assessment Summary pt is a 74y/o M who is admitted for Encephalopathy due to non small cell lung CA with punctate cerebral bleeds . pt with dx of lung CA with mets to brain and spine. pt requiring max A x 2 with mobility and max cues with all tasks. Recommending mechanical lift transfers with nursing staff at this time. pt will require 24/ assist. will continue to assess progress. Goals Bed Mobility Goal Minimal Assistance Transfer Goal Minimal Assistance,Front Wheeled Walker Gait Goal Minimal Assistance,Front Wheel Walker Gait Distance 25 Other Goals improve bed mobility, transfers, ambulation using fWW 50 ft SBA Days to Meet Goals 10 Frequency of Treatment Frequency Of Once a Day Treatment Treatment Plan Physical Therapy Bed Mobility Training,Transfer Training,Gait Training, Treatment Plan Therapeutic Exercise,Balance Retraining,Discharge Planning,Hot or Cold Pack,Neuromuscular Re-ed, Coordination Retraining,Manual Therapy Recommendations To Nursing Amount of Assist Mechanical Lift Needed Discharge Recommendations PT Discharge Home with 20/03 Assist Available,Home Health,SNF Rehab, Recommendations Home vs SNF Transportation Needs Wheelchair/Cabulance at Discharge - PT assist 2
--- NOTE | 2025-03-22 14:28 | CM.DANOTE ---
Patient is a 74 yo male who was admitted INPT Status on 03/21/25 for Encephalopathy. Pt has MCR and AARP for insurance and his PCP is Nurse Practitioner Angélica Hopper in [facility] and his Onc is Dr. Georges at [facility]. EMR was reviewed. Per MD, pt with his of non cell carcinoma with mets to the brain and responded well to tx until recent symptoms and imaging showed many micro hemorrhages. PT attempted to see in ED but pt too drowsy and will attempt eval again today. SW met bedside with pt, sister and WADE from [employer] visiting in room, and explained role and pt confirms he lives at home with spouse in [place] and is mostly independent with ADLs at baseline and uses a FWW for mobility. 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 Pt states his DPOA is his Dtr Stephy and that she and spouse manage most of pt's medical care and coordination. Pt denies any hx of HH or SNF but feels HH RN/PT might be helpful as he feels he has become deconditioned over the past few months. Pt though states would need to be discussed with his as she has strong opinions since she is a nurse and manages his care well. Pt preference is home with family assist at d/c and to r/o HH. Plan: SW to follow closely for PT eval and recommendations and further discussion with pt and spouse to confirm safe d/c home and r/o HH. SHASTA Miller Discharge Planning/Care Management CM Discharge Assessment Start: 03/21/25 17:02 Freq: Status: Active Protocol: Document 03/22/25 14:26 BF (Rec: 03/22/25 14:28 BF [id number]) Discharge Planning Assessment Assigned Discharge SHASTA Bridges Mail Courier DPOA/Assigned Dtr Stephy Designee Name Advance Directives? Yes Advance Directives No on File History Provided By Patient,Family Member,Medical Record Has Patient been No admitted in last 30 days? Prior Living House Arrangements Household Members spouse Type of Relies on Others transporation used prior to admit Independent with ADL Yes: mostly 's Is patient alert and Yes oriented? Needs Assistance Meal Prep,Managing Medications,Home Chores / Shopping With Caregiver for No Another Community Services IV Therapy used prior to admission: Comment Oncologist Dr. Georges at [facility] DME Already Rented / Bath Bench,Elevated Toilet Seat,FWW / Walker Owned Patient/Family Home with Home Health Preference Barriers to Yes Discharge Comment If SNF, no Onc tx while in SNF, but hopeful to d/c home Discharge Plan Home with Home Health Transportation Family can provide transport at d/c if safe for home Arrangement Additional Comment Possible HH referral pending further discussion with spouse Whiteboard Updated Yes in Patient Room with name and ext. # of Digital Marketing Officer Review Status In Process Please Provide Date 03/22/25 Initial DC Assessment Was Performed Next Review Type Continued Stay Review
[2025-03-22 16:55] VITALS: BP 150/58; PULSE 74; RESP 17; TEMP 36.8; O2SAT 95
--- NOTE | 2025-03-22 17:07 | P.PN_ITS ---
Subjective Subjective Interval history: 74-year-old gentleman with non-small cell carcinoma history, BPH, GERD who was admitted with generalized weakness and confusion. Patient was noted to be very lethargic on admission and was non interactive. Has improved and is much more interactive today. He remains quite confused but is pleasant and cooperative. 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 He denies feeling weak presently but states it has been intermittent through the day. He initially tells me he was drinking fluids quite well today and then told me he was not. He tells me his does not like alcohol and that he drinks it very rarely. Exam Vital Signs (past 8 hours): - 03/22/25 09:13 03/22/25 11:51 03/22/25 16:55 Temperature 97.1 F L 98.3 F Pulse Rate 70 74 Respiratory Rate 16 17 Blood Pressure 132/51 L 150/58 H Pulse Oximetry 97 95 Oxygen Delivery Method Room Air Nasal Cannula Oxygen Flow Rate 0 0 Oxygen Delivery Method Room Air,Nasal Cannula Oxygen Flow Rate 0 Narrative Exam Narrative: GEN: Pleasantly confused elderly male, Alert and oriented x 1-2, NAD HEENT:NC, Face symmetric CHEST: Respiratory excursions symmetric, CTAB CV: RRR, no M/R/G ABD: Soft, NT/ND, BT present in all 4 quadrants, no organomegaly or masses EXTR: warm, well perfused, no C/C/E SKIN: warm and dry, no rash NEURO: Alert and oriented x 1-2, nonfocal Objective Labs 03/22/25 04:38 03/22/25 04:38 Labs: Laboratory Results - last 24 hr 03/22/25 04:38 WBC 13.1 H RBC 2.77 L Hgb 9.3 L Hct 26.5 L MCV 95.8 MCH 33.6 MCHC 35.1 RDW 14.7 Plt Count 262 Neut % (Auto) 75.0 Lymph % (Auto) 19.0 L [place] % (Auto) 4.0 Eos % (Auto) 1.2 L Baso % (Auto) 0.8 Neut # (Auto) 9800 H Lymph # (Auto) 2500 [place] # (Auto) 500 Eos # (Auto) 200 Baso # (Auto) 100 Sodium 140 Potassium 4.3 Chloride 109 H Carbon Dioxide 24 BUN 20 Creatinine 0.84 Estimated GFR > 60 BUN/Creatinine Ratio 23.8 H Glucose 171 H Calcium 8.2 L Total Bilirubin 0.7 AST 26 ALT 15 Alkaline Phosphatase 130 H Total Protein 6.4 Albumin 3.7 Globulin 2.7 Albumin/Globulin Ratio 1.4 [facility] Medical History Healthy adult Sinusitis Social History marital status: household members: spouse Smoking Status: Never smoker alcohol intake: never Assessment & Plan Assessment & Plan narrative: 1. Generalized weakness Unclear etiology. MRI revealed multiple punctate foci of hemosiderin deposit which could be cavernous hemangiomas with tiny hemorrhages versus amyloid angiopathy. He additionally has known non-small cell carcinoma with extensive micro metastases treated with cerebral radiation and presently on alectanib. Imaging on admission revealed sclerotic spine lesions but no other obvious metastatic disease. UA was negative. Chest x-ray was negative. CT chest, abdomen, and pelvis did not reveal any infectious etiology. PT evaluation was done with recommendations for home with 24 hour assistance versus group home facility for rehab. He was initiated on IV dexamethasone. This will be continued. There was no evidence of vasogenic edema on MRI. Will consider weaning the dexamethasone tomorrow 2. Acute metabolic encephalopathy Unclear etiology. He does take methylphenidate and duloxetine at baseline. I am uncertain if he takes any new medications. No evidence of infectious etiology. Will continue to monitor. 3. BPH Knowles catheter is presently in place. He is on Motegrity, tamsulosin, and finasteride at baseline. Will resume tamsulosin and finasteride. Anticipate Knowles catheter will be discontinued at discharge. 4. Pke-gujyx-fkxq carcinoma He is followed by [facility]. ED discussed the case with the on-call doctor on admission. The recommendation was for outpatient follow-up. Continue his usual dose of Alectanib. 5. Leukocytosis White blood cell count is 13.1. No evidence of localized infection. Will monitor. 6. Normocytic anemia Stable Code status DNR Prophylaxis No chemical prophylaxis given possibility of punctate hemorrhages on MRI Disposition Pending Time-Based Coding :: [TOTAL MINUTES] spent with patient and on the chart (including review of chart, obtaining history, exam, reviewing outside data, placing orders, documenting exam and treatment plan, and counseling patient) on [DATE]. Quality VTE Deep Vein Thrombosis/Pulmonary Embolism Present on Admission: No
[2025-03-22 20:08] VITALS: BP 137/57; PULSE 70; RESP 18; TEMP 36.4; O2SAT 98
[2025-03-22] MEDS: DULOXETINE 30 MG CAPSULE PO (20:14)
[2025-03-23] MEDS: DEXAMETHASONE 4 MG/ML VIAL IV ×4 (00:13→20:23)
[2025-03-23 04:59] LABS: Add Manual Diff / Slide Review NO; Hematocrit 26.1 % (41-53); Hemoglobin 9.2 g/dL (13.5-17.5); Lymphocytes Absolute Auto 2500 /uL (1100-4500); Mean Corpuscular HGB Conc 35.5 % (30-36); Mean Corpuscular Hemoglobin 33.7 PG (26-34); Mean Corpuscular Volume 95.1 fL (80-100); Platelet Count 277 X10^3/uL (150-400)
[2025-03-23 05:24] LABS: Blood Urea Nitrogen 19 mg/dL (9-20); Calcium 8.4 mg/dL (8.4-10.2); Carbon Dioxide 24 mmol/L (22-32); Chloride 109 mmol/L (98-107); Estimated Glomerular Filt Rate > 60 mL/min (>60); Glucose 132 mg/dL (70-99); HEMOLYSIS < 15 (0-50); Potassium 4.1 mmol/L (3.4-5.1); Sodium 139 mmol/L (137-145)
[2025-03-23] MEDS: DULOXETINE 30 MG CAPSULE PO ×2 (09:09→20:23)
[2025-03-23] MEDS: TAMSULOSIN 0.4 MG CAPSULE 0.8 MG PO (09:09)
[2025-03-23] MEDS: POTASSIUM CHLORIDE 10 MEQ TAB 20 MEQ PO (09:09)
[2025-03-23] MEDS: PANTOPRAZOLE DR 40 MG TABLET PO (09:09)
[2025-03-23] MEDS: FINASTERIDE 5 MG TABLET PO (09:09)
[2025-03-23] MEDS: ALECTINIB 150 MG 600 EACH PO ×2 (09:10→20:23)
[2025-03-23] MEDS: DEXTROSE 5%-0.9% NS 1,000 ML 100 ML IV ×2 (09:31→18:31)
[2025-03-23 10:15] VITALS: BP 141/79; PULSE 74; RESP 16; TEMP 36.2; O2SAT 96
--- NOTE | 2025-03-23 12:52 | PT.IPTN ---
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, initial encounter (03/21/25) Physical Therapy Treatment Note M2 PT-IP Current Condition Start: 03/21/25 18:11 Freq: NEEDED Status: Active Protocol: Document 03/22/25 12:00 AB (Rec: 03/22/25 13:45 AB Desktop) Physical Therapy Current Condition Current Condition Evaluation Date 03/22/25 Treatment Diagnosis encephalopathy; generalized weakness Onset Date 03/20/25 M3 PT-IP Subjective Start: 03/21/25 18:11 Freq: NEEDED Status: Active Protocol: Document 03/23/25 12:15 MB (Rec: 03/23/25 12:52 MB Desktop) Subjective Physical Therapy Visit Type Type Treatment Note Visit Start Time 12:15 Visit Stop Time 12:[address] [address] [employer] LAW CLERK Visits 0 Physical Therapy Visit Comments Patient Comments Pt is agreeable to PT. Pt is alert and confused. Oriented to name, and location. Does make some jokes. M4 PT-IP Mobility and Gait Start: 03/21/25 18:11 Freq: NEEDED Status: Active Protocol: Document 03/23/25 12:15 MB (Rec: 03/23/25 12:52 MB Desktop) PT-Bed Mobility Assessment Supine to Sit Supine to Sit Maximum Assistance,1 Person Assistance,Head of Bed Elevated,Bedrails Sit to Supine Sit to Supine Minimal Assistance Scooting Scooting to Edge of Dependent Bed Scooting Up and Down Dependent in Bed PT-Transfer Assessment Comments Mobility Comments nearby for treatment. Pt presents with confusion and trouble tracking with eyes to rail, following commands for simple functional tasks like reaching for rail, scooting out. Sits EOB with UE support for over 5 ' with CGA and then lies back down, pt is hypoverbal. PT-Balance Assessment Sitting Balance and Reactions Static Sitting Fair Balance Ability Dynamic Sitting Fair Balance Ability M5 PT-IP Objective Assessments Start: 03/21/25 18:11 Freq: NEEDED Status: Active Protocol: Document 03/22/25 12:00 AB (Rec: 03/22/25 13:45 AB Desktop) Orientation Orientation/Cognition Level of Alertness Confusional State Orientation Name Language Function Hard of Hearing Ability Safety Awareness Decreased Safety Awareness Memory Description Short Term Impaired,Regional Rehabilitation Director Impaired Strength Lower Extremity Strength Assessment Bilaterally Impaired Hip 3+/5 Knee 3+/5 Muscle Tone Muscle Tone WNL Yes M6 PT-IP Treatment Start: 03/21/25 18:11 Freq: NEEDED Status: Active Protocol: Document 03/22/25 12:00 AB (Rec: 03/22/25 13:45 AB Desktop) Physical Therapy Treatment Education Education Provided Safety M7 PT-IP Assessment and Plan Start: 03/21/25 18:11 Freq: NEEDED Status: Active Protocol: Document 03/23/25 12:15 MB (Rec: 03/23/25 12:52 MB Desktop) PT Summary Assessment and Plan Potential Rehabilitation Poor Potential Status of Condition Evolving at Evaluation Summary Impairments Pain,ROM,Strength,Balance,Coordination,Sensation,Tone, Cognition,Bed Mobility,Transfers,Gait,Activity Tolerance Progress Towards Slow Progress due to Medical Issues,Slow Progress - Goals Other Assessment Summary Pt con't to be alert and confused. He is unable to follow many simple 1-step functional commands today including tracking with eyes to bed rail. reports increasing confusion at home. Unsure prognosis, currently skilled therapy is very challenging given cognitive presentation. Goals Bed Mobility Goal Minimal Assistance Transfer Goal Minimal Assistance,Front Wheeled Walker Gait Goal Minimal Assistance,Front Wheel Walker Gait Distance 25 Other Goals improve bed mobility, transfers, ambulation using fWW 50 ft SBA Days to Meet Goals 10 Frequency of Treatment Frequency Of Once a Day Treatment Other frequency Trial Treatment Plan Physical Therapy Bed Mobility Training,Transfer Training,Gait Training, Treatment Plan Therapeutic Exercise,Balance Retraining,Discharge Planning,Hot or Cold Pack,Neuromuscular Re-ed, Coordination Retraining,Manual Therapy Recommendations To Nursing Amount of Assist Mechanical Lift Needed Discharge Recommendations Other Discharge 24 hour assistance at d/c, PT consult at d/c currently, Recommendations con't to update given progress Transportation Needs Wheelchair/Cabulance,Stretcher/Ambulance at Discharge - PT assist x2
[2025-03-23 16:47] VITALS: BP 136/67; PULSE 77; RESP 18; TEMP 36.4; O2SAT 94
--- NOTE | 2025-03-23 18:23 | P.PN_ITS ---
Subjective Subjective Interval history: 74-year-old gentleman with non-small cell carcinoma history, BPH, GERD who was admitted with generalized weakness and confusion. Patient was noted to be very lethargic on admission and was non interactive. He is pleasant and confused today. His breakfast is just arrived and he states he is looking forward to eating it. 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 Was seeing this in front of his family and nursing staff earlier during his hospitalization and his family advised that he has not been working for awhile. He denies any headache or other complaints today. Exam Vital Signs (past 8 hours): - 03/23/25 16:47 Temperature 97.5 F L Pulse Rate 77 Respiratory Rate 18 Blood Pressure 136/67 Pulse Oximetry 94 Oxygen Delivery Method Room Air Oxygen Flow Rate 0 Narrative Exam Narrative: GEN: Pleasantly confused elderly male, Alert and oriented x 1-2, NAD HEENT:NC, Face symmetric CHEST: Respiratory excursions symmetric, CTAB CV: RRR, no M/R/G ABD: Soft, NT/ND, BT present in all 4 quadrants, no organomegaly or masses EXTR: warm, well perfused, no C/C/E SKIN: warm and dry, no rash NEURO: Alert and oriented x 1-2, nonfocal Objective Labs 03/23/25 04:27 03/23/25 04:27 Labs: Laboratory Results - last 24 hr 03/23/25 04:27 WBC 18.5 H RBC 2.74 L Hgb 9.2 L Hct 26.1 L MCV 95.1 MCH 33.7 MCHC 35.5 RDW 14.7 Plt Count 277 Neut % (Auto) 80.6 H Lymph % (Auto) 13.7 L [place] % (Auto) 4.6 Eos % (Auto) 0.6 L Baso % (Auto) 0.5 Neut # (Auto) 27588 H Lymph # (Auto) 2500 [place] # (Auto) 900 Eos # (Auto) 100 Baso # (Auto) 100 Sodium 139 Potassium 4.1 Chloride 109 H Carbon Dioxide 24 BUN 19 Creatinine 0.75 Estimated GFR > 60 BUN/Creatinine Ratio 25.3 H Glucose 132 H Calcium 8.4 PFSH Medical History Healthy adult Sinusitis Social History marital status: household members: spouse Smoking Status: Never smoker alcohol intake: never Assessment & Plan Assessment & Plan narrative: 1. Generalized weakness Unclear etiology. MRI revealed multiple punctate foci of hemosiderin deposit which could be cavernous hemangiomas with tiny hemorrhages versus amyloid angiopathy. He additionally has known non-small cell carcinoma with extensive micro metastases treated with cerebral radiation and presently on alectanib. Imaging on admission revealed sclerotic spine lesions but no other obvious metastatic disease. UA was negative. Chest x-ray was negative. CT chest, abdomen, and pelvis did not reveal any infectious etiology. PT evaluation was done with recommendations for home with 24 hour assistance versus nursing home facility for rehab. He was initiated on IV dexamethasone. This will be continued, but will wean today. There was no evidence of vasogenic edema on MRI. 2. Acute metabolic encephalopathy Unclear etiology. He does take methylphenidate and duloxetine at baseline. No evidence of infectious etiology. Will continue to monitor. 3. BPH Knowles catheter is presently in place. He is on Myrbetriq, tamsulosin, and finasteride at baseline. Restarted tamsulosin and finasteride yesterday. Anticipate Knowles catheter will be discontinued at discharge. 4. Tel-xqtws-[id number] carcinoma He is followed by [facility]. ED discussed the case with the on-call doctor on admission. The recommendation was for outpatient follow-up. Continue his usual dose of Alectanib. 5. Leukocytosis White blood cell count is up from 13.1 to 18.5 today, likely secondary to steroid effect 6. Normocytic anemia Stable Code status DNR Prophylaxis No chemical prophylaxis given possibility of punctate hemorrhages on MRI Disposition Pending Time-Based Coding :: [TOTAL MINUTES] spent with patient and on the chart (including review of chart, obtaining history, exam, reviewing outside data, placing orders, documenting exam and treatment plan, and counseling patient) on [DATE]. Quality VTE Deep Vein Thrombosis/Pulmonary Embolism Present on Admission: No
[2025-03-23] MEDS: SENNOSIDES 8.6 MG TABLET PO (20:23)
[2025-03-23] MEDS: DOCUSATE 100 MG CAPSULE PO (20:23)
[2025-03-23 20:24] VITALS: BP 134/54; PULSE 70; RESP 17; TEMP 36.5; O2SAT 94
[2025-03-24] MEDS: DEXTROSE 5%-0.9% NS 1,000 ML 100 ML IV ×3 (03:15→21:41)
[2025-03-24 06:11] LABS: Add Manual Diff / Slide Review NO; Hematocrit 27.1 % (41-53); Hemoglobin 9.5 g/dL (13.5-17.5); Lymphocytes Absolute Auto 3200 /uL (1100-4500); Mean Corpuscular HGB Conc 35.0 % (30-36); Mean Corpuscular Hemoglobin 33.0 PG (26-34); Mean Corpuscular Volume 94.4 fL (80-100); Platelet Count 309 X10^3/uL (150-400)
[2025-03-24 06:23] LABS: Blood Urea Nitrogen 20 mg/dL (9-20); Calcium 8.7 mg/dL (8.4-10.2); Carbon Dioxide 25 mmol/L (22-32); Chloride 104 mmol/L (98-107); Estimated Glomerular Filt Rate > 60 mL/min (>60); Glucose 124 mg/dL (70-99); HEMOLYSIS < 15 (0-50); Potassium 4.1 mmol/L (3.4-5.1); Sodium 138 mmol/L (137-145)
[2025-03-24 08:00] VITALS: BP 166/74; PULSE 61; RESP 16; TEMP 36.1; O2SAT 98
[2025-03-24] MEDS: PANTOPRAZOLE DR 40 MG TABLET PO (08:49)
[2025-03-24] MEDS: DEXAMETHASONE 4 MG/ML VIAL IV ×2 (08:49→21:39)
[2025-03-24] MEDS: FINASTERIDE 5 MG TABLET PO (08:49)
[2025-03-24] MEDS: TAMSULOSIN 0.4 MG CAPSULE 0.8 MG PO (08:49)
[2025-03-24] MEDS: ALECTINIB 150 MG 600 EACH PO (08:49)
[2025-03-24] MEDS: SENNOSIDES 8.6 MG TABLET PO ×2 (08:49→21:41)
[2025-03-24] MEDS: POTASSIUM CHLORIDE 10 MEQ TAB 20 MEQ PO (08:49)
[2025-03-24] MEDS: DOCUSATE 100 MG CAPSULE PO ×2 (08:49→21:39)
[2025-03-24] MEDS: DULOXETINE 30 MG CAPSULE PO ×2 (08:49→21:39)
--- NOTE | 2025-03-24 11:48 | CM.DPNOTE ---
Addendum entered by SHASTA Douglas 03/24/25 16:13: per provider in afternoon, after reviewing imaging with oncologist, pt symptoms could be a rx to chemo. stop chemo and monitor for a few days. if acute encephalopathy improves, this was likely a rx Medical POC continues SL Addendum entered by SHASTA Douglas 03/24/25 14:15: REVERBERATORY SKIMMER attempted to meet with pt in room. sleeping heavily. allowed to rest. SL Original Note: DCP note REVERBERATORY SKIMMER reviewed EMR per provider in morning rounds/PT, pt may be more appropriate for comfort care. per RN, provider wishes to coordinate with pt's oncologist further before pursuing CC conversation with pt and family. waiting to hear back on that input before discussing CC vs SNF vs home with HH with pt and spouse CM team will continue to follow closely for DCP coordination SHASTA Douglas
--- NOTE | 2025-03-24 13:49 | PT.IPTN ---
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, initial encounter (03/21/25) Physical Therapy Treatment Note M2 PT-IP Current Condition Start: 03/21/25 18:11 Freq: NEEDED Status: Active Protocol: Document 03/22/25 12:00 AB (Rec: 03/22/25 13:45 AB Desktop) Physical Therapy Current Condition Current Condition Evaluation Date 03/22/25 Treatment Diagnosis encephalopathy; generalized weakness Onset Date 03/20/25 M3 PT-IP Subjective Start: 03/21/25 18:11 Freq: NEEDED Status: Active Protocol: Document 03/24/25 13:34 MB (Rec: 03/24/25 13:49 MB Desktop) Subjective Physical Therapy Visit Type Type Treatment Note Visit Start Time 13:34 Visit Stop Time 13:44 Number of TECHNICAL SALES REPRESENTATIVES Visits 0 Physical Therapy Visit Comments Patient Comments PT checks in on pt who is alert and con't with confusion. He declines PT, stating, I might need to poop. PT offers to get help and a bed arzate and he states, it's okay. I can do it and I do not need any help. PT leaves to get SURVEY QUESTIONNAIRE DESIGNER. M4 PT-IP Mobility and Gait Start: 03/21/25 18:11 Freq: NEEDED Status: Active Protocol: Document 03/24/25 13:34 MB (Rec: 03/24/25 13:49 MB Desktop) PT-Bed Mobility Assessment Rolling Type of Rolling Roll to Right Level of Assist Maximal Assistance,1 Person Assistance PT-Transfer Assessment Comments Mobility Comments Pt is able to minimally use right arm to reach for right bed rail and otherwise, max A to dependent to roll to the right for bed arzate placement. Pt requires encouragement and cues to try for BM. Left with HOB mildly elevated and needs in reach, SURVEY QUESTIONNAIRE DESIGNER aware after assisting PT and pt. M5 PT-IP Objective Assessments Start: 03/21/25 18:11 Freq: NEEDED Status: Active Protocol: Document 03/22/25 12:00 AB (Rec: 03/22/25 13:45 AB Desktop) Orientation Orientation/Cognition Level of Alertness Confusional State Orientation Name Language Function Hard of Hearing Ability Safety Awareness Decreased Safety Awareness Memory Description Short Term Impaired,Jail Impaired Strength Lower Extremity Strength Assessment Bilaterally Impaired Hip 3+/5 Knee 3+/5 Muscle Tone Muscle Tone WNL Yes M6 PT-IP Treatment Start: 03/21/25 18:11 Freq: NEEDED Status: Active Protocol: Document 03/22/25 12:00 AB (Rec: 03/22/25 13:45 AB Desktop) Physical Therapy Treatment Education Education Provided Safety M7 PT-IP Assessment and Plan Start: 03/21/25 18:11 Freq: NEEDED Status: Active Protocol: Document 03/24/25 13:34 MB (Rec: 03/24/25 13:49 MB Desktop) PT Summary Assessment and Plan Potential Rehabilitation Poor Potential Status of Condition Evolving at Evaluation Summary Impairments Pain,ROM,Strength,Balance,Coordination,Sensation,Tone, Cognition,Bed Mobility,Transfers,Gait,Activity Tolerance Progress Towards Slow Progress due to Medical Issues,Slow Progress - Goals Other Assessment Summary Pt con't to be alert and confused. Attempted rolling, bed mobility and bed arzate training today. Unsure if pt understands about BM on bed arzate. Pt currently requires 1-2 person max to dependent assistance for mobility. Goals Bed Mobility Goal Minimal Assistance Transfer Goal Minimal Assistance,Front Wheeled Walker Gait Goal Minimal Assistance,Front Wheel Walker Gait Distance 25 Other Goals improve bed mobility, transfers, ambulation using fWW 50 ft SBA Days to Meet Goals 10 Frequency of Treatment Frequency Of Once a Day Treatment Other frequency Trial Treatment Plan Physical Therapy Bed Mobility Training,Transfer Training,Gait Training, Treatment Plan Therapeutic Exercise,Balance Retraining,Discharge Planning,Hot or Cold Pack,Neuromuscular Re-ed, Coordination Retraining,Manual Therapy Recommendations To Nursing Amount of Assist Mechanical Lift Needed Discharge Recommendations Other Discharge 24 hour total assistance at d/c, PT consult at d/c Recommendations currently, con't to update given progress Transportation Needs Stretcher/Ambulance at Discharge - PT assist x2
--- NOTE | 2025-03-24 16:11 | P.PN_ITS ---
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 Rosado [facility] telephone [phone] and pager [phone] Who he last saw 4 months ago, was scheduled for outpatient follow up MRI brain today, but felt too weak. Has generalized weakness for the last 1 week, increased today. Extensive workup was done in the emergency department with CT and an MRI imaging of brain thoracic spine lumbar spine abdomen and pelvis. Pertinent finding is on MRI of the brain demonstrates demonstrates the following: There are multiple punctate foci of hemosiderin deposition. Consider cavernous hemangiomas with associated tiny hemorrhages as a possibility. The remainder of the workup hemogram chemistries were unremarkable Patient was admitted for encephalopathy suspected secondary to vasogenic cerebral edema from innumerable punctate foci of microhemorrhages. Hospital course: 03/21-03/23: Over the weekend patient remained arousable but confused however very weak required full assistance to transfer out of bed too weak to stand or walk with physical therapy Decadron was tapered down to 4 mg twice a day. 03/24: Patient has remained stable but in a very weakened state requiring full care. Dr. Carbajal and Dr. Degroot were consulted by telephone. Dr. Degroot reviewed the CT and MRI and concluded that there is no involvement with neoplasm in this and that the consensus was that this may be an adverse reaction of the AL K inhibitor alectinib Review of systems: Patient unable to participate in review of systems due to memory loss no observed seizures nausea or vomiting Physical exam: Chronically ill elderly male alert conversant but confused HEENT unremarkable Heart rate and rhythm regular Lungs clear to auscultation Mich nontender Extremities no edema Moves all extremities Reflexes 1+ Toes downgoing Objective laboratory and imaging please see the bottom of the note: Assessment and plan: Initially it was suspected Vasogenic edema secondary to multiple punctate hemorrhages in the setting of ALK positive non-small cell carcinoma however consensus discussion with Dr. Degroot myself and the there is strong suspicion that there is growing intolerance and adverse reaction to chemotherapy alectinib 600 mg twice daily * Discontinue due to suspected adverse reaction to chemotherapy alectinib 600 * Observe changes in the encephalopathy DVT prophylaxis with SCDs only due to hemorrhage Code status: * Do not resuscitate 55 minutes were involved in managing this patient including consultation with references colleagues laboratory and imaging data Exam Vital Signs (past 8 hours): Oxygen Delivery Method Room Air Oxygen Flow Rate 0 Objective Labs 03/24/25 06:00 03/24/25 06:00 Labs: Laboratory Results - last 24 hr 03/24/25 06:00 WBC 19.5 H RBC 2.87 L Hgb 9.5 L Hct 27.1 L MCV 94.4 MCH 33.0 MCHC 35.0 RDW 14.7 Plt Count 309 Neut % (Auto) 75.4 H Lymph % (Auto) 16.2 L [place] % (Auto) 7.0 Eos % (Auto) 0.9 L Baso % (Auto) 0.5 Neut # (Auto) 66254 H Lymph # (Auto) 3200 [place] # (Auto) 1400 H Eos # (Auto) 200 Baso # (Auto) 100 Sodium 138 Potassium 4.1 Chloride 104 Carbon Dioxide 25 BUN 20 Creatinine 0.76 Estimated GFR > 60 BUN/Creatinine Ratio 26.3 H Glucose 124 H Calcium 8.7 PFSH Medical History Healthy adult Sinusitis Social History marital status: household members: spouse Smoking Status: Never smoker alcohol intake: never Assessment & Plan Time-Based Coding :: [TOTAL MINUTES] spent with patient and on the chart (including review of chart, obtaining history, exam, reviewing outside data, placing orders, documenting exam and treatment plan, and counseling patient) on [DATE]. Quality VTE Deep Vein Thrombosis/Pulmonary Embolism Present on Admission: No
[2025-03-24 19:00] VITALS: BP 142/59; PULSE 68; RESP 20; TEMP 36.7; O2SAT 94
[2025-03-25] MEDS: DULOXETINE 30 MG CAPSULE PO ×2 (09:32→20:03)
[2025-03-25] MEDS: DOCUSATE 100 MG CAPSULE PO (09:32)
[2025-03-25] MEDS: DEXAMETHASONE 4 MG/ML VIAL IV (09:32)
[2025-03-25] MEDS: SENNOSIDES 8.6 MG TABLET PO (09:32)
[2025-03-25] MEDS: POTASSIUM CHLORIDE 10 MEQ TAB 20 MEQ PO (09:32)
[2025-03-25] MEDS: PANTOPRAZOLE DR 40 MG TABLET PO (09:32)
[2025-03-25] MEDS: DEXTROSE 5%-0.9% NS 1,000 ML 100 ML IV (09:32)
[2025-03-25] MEDS: TAMSULOSIN 0.4 MG CAPSULE 0.8 MG PO (09:32)
[2025-03-25] MEDS: FINASTERIDE 5 MG TABLET PO (09:32)
--- NOTE | 2025-03-25 14:40 | PT.IPTN ---
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, initial encounter (03/21/25) Physical Therapy Treatment Note M2 PT-IP Current Condition Start: 03/21/25 18:11 Freq: NEEDED Status: Active Protocol: Document 03/22/25 12:00 AB (Rec: 03/22/25 13:45 AB Desktop) Physical Therapy Current Condition Current Condition Evaluation Date 03/22/25 Treatment Diagnosis encephalopathy; generalized weakness Onset Date 03/20/25 M3 PT-IP Subjective Start: 03/21/25 18:11 Freq: NEEDED Status: Active Protocol: Document 03/25/25 14:40 AB (Rec: 03/25/25 17:33 AB [id number]) Subjective Physical Therapy Visit Type Type Treatment Note Visit Start Time 14:40 Visit Stop Time 15:20 Number of PURCHASING AND FISCAL CLERK Visits 0 M4 PT-IP Mobility and Gait Start: 03/21/25 18:11 Freq: NEEDED Status: Active Protocol: Document 03/25/25 14:40 AB (Rec: 03/25/25 17:33 AB [id number]) PT-Bed Mobility Assessment Supine to Sit Supine to Sit Maximum Assistance,1 Person Assistance,2 Person Assistance,Head of Bed Elevated,Bedrails Scooting Scooting to Edge of Maximum Assistance Bed PT-Transfer Assessment Sit to and From Stand Sit to and from Maximum Assistance,2 Person Assistance,Use of Upper Stand Extremities Equipment Transfer Assistive Gait Belt,Front Wheeled Walker Device Orthotic/Prosthetic No Devices or Brace: Transfers Transfer Destination Chair Transfer Technique Stand Pivot Transfer Ability Level of Assist Maximum Assistance,Total Assistance,2 Person Assistance ,Use of Upper Extremities Comments Mobility Comments pt in bed. supine to sit max A x 1-2 and max cues. increase retrolean and needs min to mod A for sitting balance and max cues. pt requires max cues with all tasks and needs increase time to follow directions and complete tasks. sit to stand from EOB max A x 2 and max cues. upon standing, pt needing to be cleaned up and brief change. pt completed sit<>stand a few times max A x 2 and required max A x 2 for standing balance while assisted with hygiene care and brief management. pt completed stand pivot transfer to chair using FWW max A x 2 to total A x 2 and max cues. pt unable to follow directions for transfers and with freezing episode needing assist for weight shifting and moving LE to transfer. positioned pt on the chair. call light and table placed within reach. chair alarm on. M5 PT-IP Objective Assessments Start: 03/21/25 18:11 Freq: NEEDED Status: Active Protocol: Document 03/22/25 12:00 AB (Rec: 03/22/25 13:45 AB Desktop) Orientation Orientation/Cognition Level of Alertness Confusional State Orientation Name Language Function Hard of Hearing Ability Safety Awareness Decreased Safety Awareness Memory Description Short Term Impaired,Director Hedis Impaired Strength Lower Extremity Strength Assessment Bilaterally Impaired Hip 3+/5 Knee 3+/5 Muscle Tone Muscle Tone WNL Yes M6 PT-IP Treatment Start: 03/21/25 18:11 Freq: NEEDED Status: Active Protocol: Document 03/25/25 14:40 AB (Rec: 03/25/25 17:33 AB [id number]) Physical Therapy Treatment Education Education Provided Safety M7 PT-IP Assessment and Plan Start: 03/21/25 18:11 Freq: NEEDED Status: Active Protocol: Document 03/25/25 14:40 AB (Rec: 03/25/25 17:33 AB [id number]) PT Summary Assessment and Plan Potential Rehabilitation Fair Potential Summary Impairments Pain,ROM,Strength,Balance,Coordination,Sensation,Tone, Cognition,Bed Mobility,Transfers,Gait,Activity Tolerance Progress Towards Slow Progress due to Medical Issues,Slow Progress - Goals Other Assessment Summary pt requiring max A x 2 and max cues for transfers. pt inconsistent with following directions and needs max cues and repeated instructions to complete all tasks. Pt will need 24/7 assist of Max A x 2 to total A x 2. will continue to assess progress but currently limited due to decrease ability to follow directions and initiate movement. Goals Bed Mobility Goal Minimal Assistance Transfer Goal Minimal Assistance,Front Wheeled Walker Gait Goal Minimal Assistance,Front Wheel Walker Gait Distance 25 Other Goals improve bed mobility, transfers, ambulation using fWW 50 ft SBA Days to Meet Goals 10 Frequency of Treatment Frequency Of Once a Day Treatment Treatment Plan Physical Therapy Bed Mobility Training,Transfer Training,Gait Training, Treatment Plan Therapeutic Exercise,Balance Retraining,Discharge Planning,Hot or Cold Pack,Neuromuscular Re-ed, Coordination Retraining,Manual Therapy Recommendations To Nursing Amount of Assist Mechanical Lift,Power Sit-Stand Needed Discharge Recommendations Transportation Needs Wheelchair/Cabulance,Stretcher/Ambulance at Discharge - PT assist 2
--- NOTE | 2025-03-25 16:38 | PC.NURSE ---
Day Shift Note Patient is alert and oriented to self and place, response are very delayed, exhibits slow mental processing when following commands/answering questions and often needs repeat prompting/cueing. Family at bedside and reports that he is more alert today but still altered from baseline. Able to take pills whole with water without issue. Up to chair with PT, see their note. Currently sitting up in chair with chair alarm, call light within reach.
[2025-03-25 16:41] VITALS: BP 160/68; PULSE 68; RESP 18; TEMP 36.3; O2SAT 98
--- NOTE | 2025-03-25 17:05 | P.PN_ITS ---
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 Rosado [facility] telephone [phone] and pager [phone] Who he last saw 4 months ago, was scheduled for outpatient follow up MRI brain today, but felt too weak. Has generalized weakness for the last 1 week, increased today. Extensive workup was done in the emergency department with CT and an MRI imaging of brain thoracic spine lumbar spine abdomen and pelvis. Pertinent finding is on MRI of the brain demonstrates demonstrates the following: There are multiple punctate foci of hemosiderin deposition. Consider cavernous hemangiomas with associated tiny hemorrhages as a possibility. The remainder of the workup hemogram chemistries were unremarkable Patient was admitted for encephalopathy suspected secondary to vasogenic cerebral edema from innumerable punctate foci of microhemorrhages. Hospital course: 03/21-03/23: Over the weekend patient remained arousable but confused however very weak required full assistance to transfer out of bed too weak to stand or walk with physical therapy Decadron was tapered down to 4 mg twice a day. 03/24: Patient has remained stable but in a very weakened state requiring full care. Dr. Carbajal and Dr. Degroot were consulted by telephone. Dr. Degroot reviewed the CT and MRI and concluded that there is no involvement with neoplasm in this and that the consensus was that this may be an adverse reaction of the AL K inhibitor alectinib 03/25: Review of systems: Patient unable to participate in review of systems due to memory loss no observed seizures nausea or vomiting and tolerating diet and snacks Physical exam: Chronically ill elderly male alert quite animated and focused HEENT unremarkable No labored respirations Extremities no edema Moves all extremities Partial mental status exam Does not know the year Does know the president Knows that there is 12 eggs in a dozen Can not do arithmetic Objective laboratory and imaging please see the bottom of the note: Assessment and plan: Initially it was suspected Vasogenic edema secondary to multiple punctate hemorrhages in the setting of ALK positive non-small cell carcinoma however consensus discussion with Dr. Degroot myself and the there is strong suspicion that there is growing intolerance and adverse reaction to chemotherapy alectinib 600 mg twice daily * Discontinue due to suspected adverse reaction to chemotherapy alectinib 600 * Observe changes in the encephalopathy * Wean Decadron to 2 mg q.12 orally * Discontinue IV fluids DVT prophylaxis with SCDs only due to hemorrhage Code status: * Do not resuscitate 55 minutes were involved in managing this patient including consultation with references colleagues laboratory and imaging data discussion with family Exam Vital Signs (past 8 hours): - 03/25/25 16:41 Temperature 97.3 F L Pulse Rate 68 Respiratory Rate 18 Blood Pressure 160/68 H Pulse Oximetry 98 Oxygen Delivery Method Room Air Oxygen Flow Rate 0 Objective Labs 03/24/25 06:00 03/24/25 06:00 [facility] Medical History Healthy adult Sinusitis Social History marital status: household members: spouse Smoking Status: Never smoker alcohol intake: never Assessment & Plan Time-Based Coding :: [TOTAL MINUTES] spent with patient and on the chart (including review of chart, obtaining history, exam, reviewing outside data, placing orders, documenting exam and treatment plan, and counseling patient) on [DATE]. Quality VTE Deep Vein Thrombosis/Pulmonary Embolism Present on Admission: No
[2025-03-25 20:10] VITALS: BP 139/64; PULSE 75; RESP 16; TEMP 36.4; O2SAT 94
[2025-03-26 05:53] LABS: Add Manual Diff / Slide Review NO; Hematocrit 30.5 % (41-53); Hemoglobin 10.4 g/dL (13.5-17.5); Lymphocytes Absolute Auto 4400 /uL (1100-4500); Mean Corpuscular HGB Conc 34.2 % (30-36); Mean Corpuscular Hemoglobin 32.5 PG (26-34); Mean Corpuscular Volume 95.2 fL (80-100); Platelet Count 325 X10^3/uL (150-400)
[2025-03-26 06:01] LABS: Blood Urea Nitrogen 27 mg/dL (9-20); Calcium 8.9 mg/dL (8.4-10.2); Carbon Dioxide 28 mmol/L (22-32); Chloride 100 mmol/L (98-107); Estimated Glomerular Filt Rate > 60 mL/min (>60); Glucose 103 mg/dL (70-99); HEMOLYSIS < 15 (0-50); Potassium 4.1 mmol/L (3.4-5.1); Sodium 136 mmol/L (137-145)
[2025-03-26 08:00] VITALS: BP 163/83; PULSE 77; RESP 17; TEMP 35.9; O2SAT 95
[2025-03-26] MEDS: OXYBUTYNIN 5 MG ER TAB 10 MG PO (09:24)
[2025-03-26] MEDS: DULOXETINE 30 MG CAPSULE PO ×2 (09:24→21:29)
[2025-03-26] MEDS: FINASTERIDE 5 MG TABLET PO (09:25)
[2025-03-26] MEDS: POTASSIUM CHLORIDE 10 MEQ TAB 20 MEQ PO (09:25)
[2025-03-26] MEDS: PANTOPRAZOLE DR 40 MG TABLET PO (09:25)
[2025-03-26] MEDS: TAMSULOSIN 0.4 MG CAPSULE 0.8 MG PO (09:25)
--- NOTE | 2025-03-26 14:20 | P.PN_ITS ---
Subjective Subjective Date Patient Seen: 03/26/25 Interval history: Chief complaint: Progressive coma and weakness in the setting of non-small cell carcinoma with MRI brain showing innumerable punctate foci hemosiderin but without recurrent signs of neoplasm History of present illness: 03/21: 74-year-old male with a history of ALK positive ips-jjijh-rkhs carcinoma with extensive multiple micro metastases treated initially with cerebral radiation then with ALK inhibitor, alectinib 150 mg capsules 4 twice daily with remarkable disease free results from 2021 to about 3 weeks ago early in February of [address] Rosado [facility] telephone [phone] and pager [phone] Who he last saw 4 months ago, was scheduled for outpatient follow up MRI brain today, but felt too weak. Has generalized weakness for the last 1 week, increased today. Extensive workup was done in the emergency department with CT and an MRI imaging of brain thoracic spine lumbar spine abdomen and pelvis. Pertinent finding is on MRI of the brain demonstrates demonstrates the following: There are multiple punctate foci of hemosiderin deposition. Consider cavernous hemangiomas with associated tiny hemorrhages as a possibility. The remainder of the workup hemogram chemistries were unremarkable Patient was admitted for encephalopathy suspected secondary to vasogenic cerebral edema from innumerable punctate foci of microhemorrhages. Hospital course: 03/21-03/23: Over the weekend patient remained arousable but confused however very weak required full assistance to transfer out of bed too weak to stand or walk with physical therapy Decadron was tapered down to 4 mg twice a day. 03/24: Patient has remained stable but in a very weakened state requiring full care. Dr. Carbajal and Dr. Degroot were consulted by telephone. Dr. Degroot reviewed the CT and MRI and concluded that there is no involvement with neoplasm in this and that the consensus was that this may be an adverse reaction of the AL K inhibitor alectinib 03/25: Still full assist for transfers but is starting to wake up a bit otherwise no complaints 03/26: PT will be re-evaluating today. He seems to be more alert now knows his location still does not know the year still 0 objects in 3 minutes recall. Had long discussion with we are making preparations to referred to Rehabilitation. Continue to stop the alectinib 600 mg and tapering Decadron down to 1 mg Review of systems: Patient unable to participate in review of systems due to memory loss no observed seizures nausea or vomiting and tolerating diet and snacks Physical exam: Chronically ill elderly male alert quite animated and focused HEENT unremarkable No labored respirations Extremities no edema Moves all extremities Partial mental status exam Does not know the year Does know that he is in [place] Does know the president Knows that there is 12 eggs in a dozen Can not do arithmetic Objective laboratory and imaging please see the bottom of the note: Assessment and plan: Initially it was suspected Vasogenic edema secondary to multiple punctate hemorrhages in the setting of ALK positive non-small cell carcinoma however consensus discussion with Dr. Degroot myself and the there is strong suspicion that there is growing intolerance and adverse reaction to chemotherapy alectinib 600 mg twice daily * Discontinue due to suspected adverse reaction to chemotherapy alectinib 600 * Observe changes in the encephalopathy * Wean Decadron to 2 mg q.12 orally * Discontinue IV fluids * Refer for inpatient rehabilitation DVT prophylaxis with SCDs only due to hemorrhage Code status: * Do not resuscitate 35 minutes were involved in managing this patient including consultation with references colleagues laboratory and imaging data discussion with family Exam Vital Signs (past 8 hours): - 03/26/25 08:00 03/26/25 09:00 Temperature 96.7 F L Pulse Rate 77 Respiratory Rate 17 Blood Pressure 163/83 H Pulse Oximetry 95 Oxygen Delivery Method Room Air Oxygen Flow Rate 0 Oxygen Delivery Method Room Air Oxygen Flow Rate 0 Objective Labs 03/26/25 04:42 03/26/25 04:42 Labs: Laboratory Results - last 24 hr 03/26/25 04:42 WBC 24.4 H RBC 3.20 L Hgb 10.4 L Hct 30.5 L MCV 95.2 MCH 32.5 MCHC 34.2 RDW 14.9 H Plt Count 325 Neut % (Auto) 72.1 Lymph % (Auto) 18.2 L [place] % (Auto) 6.6 Eos % (Auto) 2.9 Baso % (Auto) 0.2 Neut # (Auto) 69019 H Lymph # (Auto) 4400 [place] # (Auto) 1600 H Eos # (Auto) 700 H Baso # (Auto) 0 Sodium 136 L Potassium 4.1 Chloride 100 Carbon Dioxide 28 BUN 27 H Creatinine 0.90 Estimated GFR > 60 BUN/Creatinine Ratio 30.0 H Glucose 103 H Calcium 8.9 [facility] Medical History Healthy adult Sinusitis Social History marital status: household members: spouse Smoking Status: Never smoker alcohol intake: never Assessment & Plan Time-Based Coding :: [TOTAL MINUTES] spent with patient and on the chart (including review of chart, obtaining history, exam, reviewing outside data, placing orders, documenting exam and treatment plan, and counseling patient) on [DATE]. Quality VTE Deep Vein Thrombosis/Pulmonary Embolism Present on Admission: No
--- NOTE | 2025-03-26 14:50 | PT.IPTN ---
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, initial encounter (03/21/25) Physical Therapy Treatment Note M2 PT-IP Current Condition Start: 03/21/25 18:11 Freq: NEEDED Status: Active Protocol: Document 03/22/25 12:00 AB (Rec: 03/22/25 13:45 AB Desktop) Physical Therapy Current Condition Current Condition Evaluation Date 03/22/25 Treatment Diagnosis encephalopathy; generalized weakness Onset Date 03/20/25 M3 PT-IP Subjective Start: 03/21/25 18:11 Freq: NEEDED Status: Active Protocol: Document 03/26/25 14:50 AB (Rec: 03/26/25 16:38 AB [id number]) Subjective Physical Therapy Visit Type Type Treatment Note Visit Start Time 14:50 Visit Stop Time 15:20 Number of PATIENT FINANCIAL REPRESENTATIVE Visits 0 M4 PT-IP Mobility and Gait Start: 03/21/25 18:11 Freq: NEEDED Status: Active Protocol: Document 03/26/25 14:50 AB (Rec: 03/26/25 16:38 AB [id number]) PT-Bed Mobility Assessment Supine to Sit Supine to Sit Maximum Assistance,2 Person Assistance PT-Transfer Assessment Sit to and From Stand Sit to and from Maximum Assistance,2 Person Assistance,Use of Upper Stand Extremities Equipment Transfer Assistive Gait Belt,Front Wheeled Walker Device Orthotic/Prosthetic No Devices or Brace: Transfers Transfer Destination Chair Transfer Technique Stand Pivot Transfer Ability Level of Assist Maximum Assistance,2 Person Assistance,Use of Upper Extremities Comments Mobility Comments pt in bed. spouse in room. pt stated that pt has cerebral edema and needs a place that is quiet to recover and that pt should not do any strenuous. pt agreed to do PT. completed supine to sit max A x 2 and max cues. mod to max A for sitting balance with increase posterior lean and lateral lean to the L. repositioned and cued pt to correct posture. pt able to assist with correcting posture but unable to hold trunk midline and needs frequent cues to correct. total A for scooting to EOB. sit to stand from EOB max A x 2 and max cues. pt needing to be cleaned up. max A x 2 while standing using FWW for support while nurse assists pt with hygiene care. pt needed seatedrest breaks in between and needed a few time to stand for nurse to be able to clean pt up. pt completed stand pivot transfer max A x 2 to total A x2 using FWW. pt with increase stiffness in standing and unable to follow directions to take steps. pt seems to did some BM while transferring. said after transfer that this is too much for pt but then stated that we cannot leave pt sitting with BM on. pt agreed to stand again max A x 2 from chair and max A x 2 for standing balance using FWW and again nurse assists with hygiene care. asked pt if he feels like he has to do a BM and and said no. pt positioned on the chair. call light and table next to pt. pt then stated that he needs to use toilet. informed NAC to use mechanical lift for toilet transfer . M5 PT-IP Objective Assessments Start: 03/21/25 18:11 Freq: NEEDED Status: Active Protocol: Document 03/22/25 12:00 AB (Rec: 03/22/25 13:45 AB Desktop) Orientation Orientation/Cognition Level of Alertness Confusional State Orientation Name Language Function Hard of Hearing Ability Safety Awareness Decreased Safety Awareness Memory Description Short Term Impaired,Clinical Scientist Impaired Strength Lower Extremity Strength Assessment Bilaterally Impaired Hip 3+/5 Knee 3+/5 Muscle Tone Muscle Tone WNL Yes M6 PT-IP Treatment Start: 03/21/25 18:11 Freq: NEEDED Status: Active Protocol: Document 03/26/25 14:50 AB (Rec: 03/26/25 16:38 AB [id number]) Physical Therapy Treatment Education Education Provided Safety M7 PT-IP Assessment and Plan Start: 03/21/25 18:11 Freq: NEEDED Status: Active Protocol: Document 03/26/25 14:50 AB (Rec: 03/26/25 16:38 AB [id number]) PT Summary Assessment and Plan Potential Rehabilitation Fair Potential Summary Impairments Pain,ROM,Strength,Balance,Coordination,Sensation,Tone, Cognition,Bed Mobility,Transfers,Gait,Activity Tolerance Progress Towards Slow Progress due to Medical Issues,Slow Progress due Goals to Activity Tolerance,Slow Progress - Other Assessment Summary pt continues to require max Ax 2 to total A x 2 with mobility and with difficulty following directions. Spouse in room and tends to restrict PT tx. informed case management social worker regarding pt's mobility, cognition affecting following directions, carryover of instructions and safety. will continue to assess. Goals Bed Mobility Goal Minimal Assistance Transfer Goal Minimal Assistance,Front Wheeled Walker Gait Goal Minimal Assistance,Front Wheel Walker Gait Distance 25 Other Goals improve bed mobility, transfers, ambulation using fWW 50 ft SBA Days to Meet Goals 10 Frequency of Treatment Frequency Of Once a Day Treatment Treatment Plan Physical Therapy Bed Mobility Training,Transfer Training,Gait Training, Treatment Plan Therapeutic Exercise,Balance Retraining,Discharge Planning,Hot or Cold Pack,Neuromuscular Re-ed, Coordination Retraining,Manual Therapy Recommendations To Nursing Amount of Assist Mechanical Lift,Power Sit-Stand Needed Discharge Recommendations Transportation Needs Wheelchair/Cabulance,Stretcher/Ambulance at Discharge - PT assist 2
[2025-03-26] MEDS: ACETAMINOPHEN 325 MG TABLET 650 MG PO (14:58)
--- NOTE | 2025-03-26 15:03 | CM.DPNOTE ---
DCP Note PARACHUTE REPAIRER reviewed EMR per provider, mentally clearing up but likely another day or so before mentation completely clears. would like CM team to start SNF as backup plan, INS MCR and AARP PARACHUTE REPAIRER met with pt and spouse in room. reviewed medcial recs/DCP options. really strongly prefer home with HH but report needing time to arrange for more DME in home. understand things like hoyers/hospital beds arranged through PCP. PARACHUTE REPAIRER provided HH and SNF preference list. spouse wishes for a night to consider preferences before referrals are sent out. will give next social media executive preferences tomorrow for SNF/HH referrals as backup plan. P: home with spouse and HH support vs SNF pending progress over next day or so. referrals needed. if SNF, PASRR needed/if HH f2f/order needed. CM team will continue to follow closely for DCP coordination SHASTA Douglas
[2025-03-26 16:15] VITALS: BP 131/62; PULSE 70; RESP 18; TEMP 36.3; O2SAT 94
--- NOTE | 2025-03-26 16:17 | PC.NURSE ---
1559 PER PHARMACY, WE HAVE NO COVID VACCINES AVAILABLE AT THIS HOSPITAL. VACCINES WILL BE AVAILABLE MID-LATE MARCH. SNEDECKER NOTIFIED. NOTIFIED.
--- NOTE | 2025-03-26 18:14 | PC.NURSE ---
PATIENT REMAINED AXO2-3 ON ROOM AIR. CONFUSED, DELAYED RESPONSES INTERMITTENTLY. RECEIVED AM MEDS. JANAY ROUNDED ON PATIENT AND DISCUSSED PLAN OF CARE WITH . BMSX2. UP TO CHAIR WITH PHY THERAPY (MAX ASSIST). C/O KNEE PAIN WITH MOVEMENT. TYLENOL GIVEN. CURRENTLY EATING DINNER WITH AT BEDSIDE. NO CONCERNS NOTED. CARE ONGOING.
[2025-03-26 20:00] VITALS: BP 141/55; PULSE 63; RESP 18; TEMP 36.2; O2SAT 94
[2025-03-27 05:51] LABS: Add Manual Diff / Slide Review NO; Hematocrit 30.9 % (41-53); Hemoglobin 10.8 g/dL (13.5-17.5); Lymphocytes Absolute Auto 4400 /uL (1100-4500); Mean Corpuscular HGB Conc 34.9 % (30-36); Mean Corpuscular Hemoglobin 33.1 PG (26-34); Mean Corpuscular Volume 94.8 fL (80-100); Platelet Count 320 X10^3/uL (150-400)
[2025-03-27 06:00] LABS: Blood Urea Nitrogen 34 mg/dL (9-20); Calcium 9.5 mg/dL (8.4-10.2); Carbon Dioxide 28 mmol/L (22-32); Chloride 97 mmol/L (98-107); Estimated Glomerular Filt Rate > 60 mL/min (>60); Glucose 83 mg/dL (70-99); HEMOLYSIS < 15 (0-50); Potassium 4.4 mmol/L (3.4-5.1); Sodium 132 mmol/L (137-145)
--- NOTE | 2025-03-27 08:50 | PC.NURSE ---
Patient is alert and oriented x3, he does have periods of being silent and not talking, but he will shake his head yes/no. Hx of brain cancer with radiation. Takes oral chemo, has been taken off at this time to see if this helps patients mentation. He is eating his breakfast now, will bring patient his medication.
[2025-03-27 09:00] VITALS: BP 157/72; PULSE 75; RESP 19; TEMP 36.2; O2SAT 93
[2025-03-27] MEDS: POTASSIUM CHLORIDE 10 MEQ TAB 20 MEQ PO (09:46)
[2025-03-27] MEDS: TAMSULOSIN 0.4 MG CAPSULE 0.8 MG PO (09:47)
[2025-03-27] MEDS: PANTOPRAZOLE DR 40 MG TABLET PO (09:47)
[2025-03-27] MEDS: DULOXETINE 30 MG CAPSULE PO ×2 (09:47→21:51)
[2025-03-27] MEDS: FINASTERIDE 5 MG TABLET PO (09:47)
[2025-03-27] MEDS: OXYBUTYNIN 5 MG ER TAB 10 MG PO (09:51)
--- NOTE | 2025-03-27 11:14 | DIET.CONS ---
Dietary Consultation Note Admission Date: 03/21/2025 16:35 Assessment: 74 y M admitted for weakness with hx of ALK positive fef-rwibn-bppc carcinoma. Dietitian screened for LOS. EMR reviewed d/t mentation/encephalopathy. 50-100% PO intakes, average 70%. DFM reviewed. Ht: 172.72 cm Wt: 80 kg BMI: 26.8 UBW: no recent wt hx, MNA indicates no wt loss in last 3 months Last BM: 03/27/25 (03/27/25 06:00) MNA: 11 Pasquale Score: 18 Diet: 03/21/25 Dinner General (Regular) Diet Diet Modifications: Nutrition Percent Meal Consumed 75% 03/26/25 18:00 Percent Meal Consumed 50% 03/26/25 09:00 Percent Meal Consumed 50% 03/25/25 18:00 Labs: RBC 3.26 X10^6/uL (4.5-5.9) L 03/27/25 05:21 Hgb 10.8 g/dL (13.5-17.5) L 03/27/25 05:21 Hct 30.9 % (41-53) L 03/27/25 05:21 Creatinine 0.88 mg/dL (0.66-1.25) 03/27/25 05:21 Lactate 0.8 mmol/L (0.7-2.1) 03/20/25 18:31 Nutrition Diagnosis: Inadequate oral intakes r/t altered mental status/decreased appetite aeb variable PO intakes, average <75% recorded PO intakes for 5 days Interventions: 1 Ensure daily to support EER EER: 1760 kcals (22 kcals/kg per BMI) 80 g protein (1g/kg per age) Monitoring/Evaluations: PO intakes, ONS tolerance Electronically Signed by: Emilia Meredith 03/27/25 11:14 Clinical Dietitian [address] [id number]
--- NOTE | 2025-03-27 14:23 | PT.IPTN ---
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, initial encounter (03/21/25) Physical Therapy Treatment Note M2 PT-IP Current Condition Start: 03/21/25 18:11 Freq: NEEDED Status: Active Protocol: Document 03/22/25 12:00 AB (Rec: 03/22/25 13:45 AB Desktop) Physical Therapy Current Condition Current Condition Evaluation Date 03/22/25 Treatment Diagnosis encephalopathy; generalized weakness Onset Date 03/20/25 M3 PT-IP Subjective Start: 03/21/25 18:11 Freq: NEEDED Status: Active Protocol: Document 03/27/25 11:37 MB (Rec: 03/27/25 14:22 MB Desktop) Subjective Physical Therapy Visit Type Type Treatment Note Visit Start Time 13:37 Visit Stop Time 14:12 Number of POCKETS AND PIECES NECKTIE OPERATOR Visits 0 Physical Therapy Visit Comments Patient Comments Pt is hypoverbal, does not refuse to participate with PT. Pt does not make spontaneous conversation and answers some questions during therapy. He is A&O to self and that he is in a hospital only. He is not oriented to month, year or situation. He does guess summer correctly for the season. Pt con't with flat affect. M4 PT-IP Mobility and Gait Start: 03/21/25 18:11 Freq: NEEDED Status: Active Protocol: Document 03/27/25 11:37 MB (Rec: 03/27/25 14:22 MB Desktop) PT-Bed Mobility Assessment Rolling Type of Rolling Roll to Right,Roll to Left,Bilateral Level of Assist Maximal Assistance,1 Person Assistance,2 Person Assistance Supine to Sit Supine to Sit Maximum Assistance,1 Person Assistance,Head of Bed Elevated,Bedrails Sit to Supine Sit to Supine Maximum Assistance,1 Person Assistance Scooting Scooting to Edge of Dependent Bed Scooting Up and Down Dependent in Bed PT-Transfer Assessment Comments Mobility Comments PT cues pt to look to PT's hand on left HOB rail to reach with his right hand for the rail to help get him to sitting and to the EOB. This requires ongoing verbal and tactile cues and encouragement and increased time. Over 5' to get to EOB. Worked on dynamic sitting balance, weight shifting and balance. Dependent assistance with pad to scoot to EOB. PT obtains stool and pt is able to sit about 10' with intermittent assistance (mostly CGA and max A x1 to prevent fall back to the left). Pt performs B toe raises and alternating LAQs x20 reps with cues and CGA. M5 PT-IP Objective Assessments Start: 03/21/25 18:11 Freq: NEEDED Status: Active Protocol: Document 03/22/25 12:00 AB (Rec: 03/22/25 13:45 AB Desktop) Orientation Orientation/Cognition Level of Alertness Confusional State Orientation Name Language Function Hard of Hearing Ability Safety Awareness Decreased Safety Awareness Memory Description Short Term Impaired,Mri Manager Impaired Strength Lower Extremity Strength Assessment Bilaterally Impaired Hip 3+/5 Knee 3+/5 Muscle Tone Muscle Tone WNL Yes M6 PT-IP Treatment Start: 03/21/25 18:11 Freq: NEEDED Status: Active Protocol: Document 03/27/25 11:37 MB (Rec: 03/27/25 14:22 MB Desktop) Physical Therapy Treatment Exercises Exercises Seated Knee Flexion/Extension Education Education Provided Safety M7 PT-IP Assessment and Plan Start: 03/21/25 18:11 Freq: NEEDED Status: Active Protocol: Document 03/27/25 11:37 MB (Rec: 03/27/25 14:22 MB Desktop) PT Summary Assessment and Plan Potential Rehabilitation Fair Potential Status of Condition Evolving at Evaluation Summary Impairments Pain,ROM,Strength,Balance,Coordination,Sensation,Tone, Cognition,Bed Mobility,Transfers,Gait,Activity Tolerance Progress Towards Slow Progress due to Medical Issues,Slow Progress due Goals to Activity Tolerance,Slow Progress - Other Assessment Summary Pt presents similarly to previous treatment dates as far as requiring heavy physical assistance and constant cues for mobility. Pt con't with pleasant though blank expression. He tracks better with eyes today. He con't to be hypoverbal. Worked on static and dynamic sitting balance with PT. He presents with bowel and bladder incontinence after session. Pt con't to require heavy 24 hour care at d/c. His functional prognosis is guarded given ongoing cognitive presentation. Goals Bed Mobility Goal Minimal Assistance Transfer Goal Minimal Assistance,Front Wheeled Walker Gait Goal Minimal Assistance,Front Wheel Walker Gait Distance 25 Days to Meet Goals 10 Frequency of Treatment Frequency Of Once a Day Treatment Treatment Plan Physical Therapy Bed Mobility Training,Transfer Training,Gait Training, Treatment Plan Therapeutic Exercise,Balance Retraining,Discharge Planning,Hot or Cold Pack,Neuromuscular Re-ed, Coordination Retraining,Manual Therapy Recommendations To Nursing Amount of Assist Mechanical Lift Needed Discharge Recommendations Other Discharge 24 hour total assistance at d/c and consider PT consult Recommendations at d/c. Pt will need hospital bed, mechanical lift and w/c at d/c Transportation Needs Wheelchair/Cabulance,Stretcher/Ambulance at Discharge - PT assist x2
--- NOTE | 2025-03-27 14:28 | OT.IP.EVAL ---
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, initial encounter (03/21/25) Past Medical History (Last Reviewed 12/10/20 @ 21:28 by Elham Lund PA-C) Healthy adult Sinusitis Occupational Therapy Inpatient Evaluation/Re-Eval M1 PT/OT-IP Prior Functional Status Start: 03/21/25 18:11 Freq: NEEDED Status: Active Protocol: Document 03/27/25 15:15 [facility] (Rec: 03/27/25 15:43 [facility] Desktop) Medical Review Prior Functional Status Medical History Yes Reviewed Communication able to respond to questions and instructions inconsistently and needed increase time to respond Mobility and Gait Spouse provided pt's PLOF and home set up: stated that pt was able to ambulate using FWW but has been getting weak for the past few months and was only able to transfer with assist and occasionally will need 2 person to transfer him from bed<>w/c Activities of Daily Pt not a good historian at this time and states not Living and IADL's able to recall how much assist was assisting him for ADL needs. Pt however was aware that she was helping him. Social History Household Members spouse Living Arrangements House Number of Floors ( Two Floors Floors) Number of Stairs To no steps to enter and has a chairlift to get to other Enter/Railing? 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 Patient/Caregiver TO get better. Goals M4 OT- IP ADL's Start: 03/27/25 15:15 Freq: Status: Active Protocol: Document 03/27/25 15:15 [facility] (Rec: 03/27/25 15:43 [facility] Desktop) OT [id number] Comments OT Self-Feeding Noted pt coughing on his food and may benefit from CONSULTING DATABASE ADMINISTRATOR Comments for swallowing needs. OT ADL-Grooming Comments OT Grooming Comments Pt able to was his mouth, but needing MODA for completeness. Pt able to brush his hair after set-up while seated on the edge of bed with CGA. OT ADL-Oral Care Comments Oral Care Comments Not performed. OT ADL-Dressing Comments OT Dressing Comments Pt dependent for brief change, assist x2. OT ADL-Toileting General Evaluation Toileting Ability Total Assistance Areas Needing Manage Clothing,Perform Perineal Hygiene Assistance Comments OT Toileting MAX/Total assist x2 for rolling side to side for brief Comments change and hygiene needs. OT ADL-Bathing Comments OT Bathing Comments Sponge bath more appropriate at this time. M6 OT- IP Functional Cognition Start: 03/27/25 15:15 Freq: Status: Active Protocol: Document 03/27/25 15:15 [facility] (Rec: 03/27/25 15:43 [facility] Desktop) Cognitive Factors Limiting Selfcare Function Cognitive Ability Level of Alertness Alert,Confusional State Patient Orientation Name,Age,Birthday,Year Attention Span Capable of Focused Attention,Unable to Sustain Ability Attention Ability to Follow Able to Follow One Step Commands with Increased Time, Commands Able to Follow One Step Commands with Repetition Memory Description Short Term Impaired,Care Home Impaired Cognitive Comments Cognitive Assessment Pt needing simple concrete cues to follow with Comments increased time to process and initiate movements. Pt hypoverbal but at times able to get sentences out. OT- Vision and Hearing OT- Hearing Assessment OT- Hearing WFL Assessment OT- Vision Assessment Visual Attentiveness WFL Occular Pursuits WFL Visual Convergence WFL Visual Romero WFL Vision Assessment Pt able to read the clock appropriately. Comments M7 OT- IP Mobility and Balance Start: 03/27/25 15:15 Freq: Status: Active Protocol: Document 03/27/25 15:15 [facility] (Rec: 03/27/25 15:43 [facility] Desktop) OT- Bed Mobility Assessment Supine to Sit Supine to Sit Assist Maximum Assistance,1 Person Assistance Sit to Supine Sit to Supine Assist Maximum Assistance,1 Person Assistance,2 Person Assistance,Head of Bed Elevated,Bedrails OT-Transfer Assessment Comments Mobility Comments Pt able to help get his legs towards the edge of bed with increased time and then needing assist to get his legs off the edge of the bed and assist to get his trunk upright. Dependent to help scoot to the edge of the bed with green pad. OT- Balance Assessment Sitting Balance and Reactions Static Sitting Fair Balance Ability Dynamic Sitting Poor Balance Ability Comments Other Balance Tests/ Pt sits in posterior tilt with lateral tilt to the left Deviations/Treatment . Able to do gentle stretching by pt leaning to the : right and able to sit up to midline. Pt needing CGA to MAXA for sitting balance and cue to use his core to lean forwards. M8 OT- IP Objective Assessments Start: 03/27/25 15:15 Freq: Status: Active Protocol: Document 03/27/25 15:15 [facility] (Rec: 03/27/25 15:43 [facility] Desktop) OT Gross Range of Motion Upper Extremity Range of Motion ROM Impairments Decreased at end ROM. OT Strength Comments Strength Comments BUE 4-/5 to 4+/5 from proximal to distal. M9 OT- IP Assessment and Plan Start: 03/27/25 15:15 Freq: Status: Active Protocol: Document 03/27/25 15:15 [facility] (Rec: 03/27/25 15:43 [facility] Desktop) OT Summary Assessment and Plan Potential Rehabilitation Fair Potential Analytic Complexity Moderate at Evaluation Summary OT Impairments Pain,Strength,Balance,Functional Cognition,Functional Mobility,Self-Feeding,Grooming,Dressing,Toileting, Bathing,Toilet Transfers,Shower Transfers,Activity Tolerance Progress Towards Slow Progress due to Medical Issues,Slow Progress due Goals to Activity Tolerance,Slow Progress due to Cognition Assessment Summary Pt MOD complexity and main barriers are pt needing increased time to process and initiate movements, overall weakness-especially with his core. Pt now needing extensive assist for dressing, toileting, bathing and mobility needs. Prior pt states able to transfer himself, however per chart states pt has declined from using a fww a few months ago to just transfers to . At this time if pt going home will need use of marium lift , hospital bed, and 24/7 assist. Pt may also benefit from skilled rehab to maximize level of independence so able to assist more during ADL and mobility needs- such as rolling for hygiene ADL needs, ability to do his use grooming/oral care needs and assist with dressing needs. Therefore pending how pt clears his encephalopathy or if this is pt's new baseline- home with 24/7 assist versus skilled rehab. Goals Self-Feeding Goal Standby Assistance Grooming Goal Standby Assistance Days to Meet Goals 25 Frequency of Treatment Other frequency 5x/week Treatment Plan OT Treatment Plan ADL Training,Functional Cognition Training,Functional Mobility Other Treatment Pt to be able to do grooming needs while seated at edge Recommendations and of bed with SBA to CGA. Next Treatment Focus Discharge Recommendations OT Discharge Home with 24/7 Assist Available,Home Health,SNF Rehab, Recommendations Home vs SNF Home Equipment Needs hospital bed, NEHEMIAH causey Transportation Needs Wheelchair/Cabulance at Discharge
--- NOTE | 2025-03-27 17:50 | P.PN_ITS ---
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 [facility] telephone [phone] and pager [phone] Who he last saw 4 months ago, was scheduled for outpatient follow up MRI brain today, but felt too weak. Has generalized weakness for the last 1 week, increased today. Extensive workup was done in the emergency department with CT and an MRI imaging of brain thoracic spine lumbar spine abdomen and pelvis. Pertinent finding is on MRI of the brain demonstrates demonstrates the following: There are multiple punctate foci of hemosiderin deposition. Consider cavernous hemangiomas with associated tiny hemorrhages as a possibility. The remainder of the workup hemogram chemistries were unremarkable Patient was admitted for encephalopathy suspected secondary to vasogenic cerebral edema from innumerable punctate foci of microhemorrhages. Hospital course: 03/21-03/23: Over the weekend patient remained arousable but confused however very weak required full assistance to transfer out of bed too weak to stand or walk with physical therapy Decadron was tapered down to 4 mg twice a day. 03/24: Patient has remained stable but in a very weakened state requiring full care. Dr. Carbajal and Dr. Degroot were consulted by telephone. Dr. Degroot reviewed the CT and MRI and concluded that there is no involvement with neoplasm in this and that the consensus was that this may be an adverse reaction of the AL K inhibitor alectinib 03/25: Still full assist for transfers but is starting to wake up a bit otherwise no complaints 03/26: PT will be re-evaluating today. He seems to be more alert now knows his location still does not know the year still 0 objects in 3 minutes recall. Had long discussion with we are making preparations to referred to Rehabilitation. Continue to stop the alectinib 600 mg and tapering Decadron down to 1 mg 7/31: Mentation is noticeably improving since the year 2023 can now do arithmetic feeding himself patient is appropriate for discharge to rehab when bed available Review of systems: Patient unable to participate in review of systems due to memory loss no observed seizures nausea or vomiting and tolerating diet and snacks Physical exam: Chronically ill elderly male alert quite animated and focused HEENT unremarkable No labored respirations Extremities no edema Moves all extremities Partial mental status exam Ears 2023 Does know that he is in [place] Does know the president Does arithmetic Objective laboratory and imaging please see the bottom of the note: Assessment and plan: Initially it was suspected Vasogenic edema secondary to multiple punctate hemorrhages in the setting of ALK positive non-small cell carcinoma however consensus discussion with Dr. Degroot myself and the there is strong suspicion that there is growing intolerance and adverse reaction to chemotherapy alectinib 600 mg twice daily * Discontinue due to suspected adverse reaction to chemotherapy alectinib 600 * Observe changes in the encephalopathy * Wean Decadron to 2 mg q.12 orally * Discontinue IV fluids * Refer for inpatient rehabilitation DVT prophylaxis with SCDs only due to hemorrhage Code status: * Do not resuscitate Disposition: Patient is ready for discharge and can be discharged when a bed for rehab is available 35 minutes were involved in managing this patient including consultation with references colleagues laboratory and imaging data discussion with family Exam Vital Signs (past 8 hours): Oxygen Delivery Method Room Air Oxygen Flow Rate 0 Objective Labs 03/27/25 05:21 03/27/25 05:21 Labs: Laboratory Results - last 24 hr 03/27/25 05:21 WBC 23.3 H RBC 3.26 L Hgb 10.8 L Hct 30.9 L MCV 94.8 MCH 33.1 MCHC 34.9 RDW 14.9 H Plt Count 320 Neut % (Auto) 70.6 Lymph % (Auto) 18.9 L [place] % (Auto) 6.4 Eos % (Auto) 4.1 H Baso % (Auto) 0.0 Neut # (Auto) 08323 H Lymph # (Auto) 4400 [place] # (Auto) 1500 H Eos # (Auto) 1000 H Baso # (Auto) 0 Sodium 132 L Potassium 4.4 Chloride 97 L Carbon Dioxide 28 BUN 34 H Creatinine 0.88 Estimated GFR > 60 BUN/Creatinine Ratio 38.6 H Glucose 83 Cal[facility] 9.5 [facility] Medical History Healthy adult Sinusitis Social History marital status: household members: spouse Smoking Status: Never smoker alcohol intake: never Assessment & Plan Time-Based Coding :: [TOTAL MINUTES] spent with patient and on the chart (including review of chart, obtaining history, exam, reviewing outside data, placing orders, documenting exam and treatment plan, and counseling patient) on [DATE]. Quality VTE Deep Vein Thrombosis/Pulmonary Embolism Present on Admission: No
[2025-03-27 21:00] VITALS: BP 114/52; PULSE 67; RESP 15; TEMP 36.6; O2SAT 95
[2025-03-27 22:49] LABS: COVID19 -Nasal RAPID Negative (Negative)
--- NOTE | 2025-03-28 02:50 | PC.NURSE ---
Assumed care of patient at 01:00.
[2025-03-28 05:47] LABS: Hematocrit 30.6 % (41-53); Hemoglobin 10.7 g/dL (13.5-17.5); Mean Corpuscular HGB Conc 34.9 % (30-36); Mean Corpuscular Hemoglobin 33.2 PG (26-34); Mean Corpuscular Volume 95.1 fL (80-100); Platelet Count 311 X10^3/uL (150-400)
[2025-03-28 05:51] LABS: Add Manual Diff / Slide Review YES
[2025-03-28 05:54] LABS: Blood Urea Nitrogen 34 mg/dL (9-20); Calcium 9.2 mg/dL (8.4-10.2); Carbon Dioxide 29 mmol/L (22-32); Chloride 97 mmol/L (98-107); Estimated Glomerular Filt Rate > 60 mL/min (>60); Glucose 94 mg/dL (70-99); HEMOLYSIS < 15 (0-50); Potassium 4.3 mmol/L (3.4-5.1); Sodium 135 mmol/L (137-145)
[2025-03-28 06:21] LABS: Band Neutrophils Percent 4.0 % (3-7); Lymphocytes Percent Manual 16.0 % (25-45); Metamyelocytes Percent 1.0 % (-0); Monocytes Percent Manual 4.0 % (2-11); Neutrophils Absolute Manual 15800 /uL (3000-5900); Segmented Neutrophils Percent 75.0 % (38-70); Total Cells Counted 100
[2025-03-28 06:24] LABS: Acanthocytes 1+
[2025-03-28 08:00] VITALS: BP 108/51; PULSE 67; RESP 17; TEMP 35.7; O2SAT 95
[2025-03-28] MEDS: PANTOPRAZOLE DR 40 MG TABLET PO (08:02)
[2025-03-28] MEDS: FINASTERIDE 5 MG TABLET PO (08:02)
[2025-03-28] MEDS: OXYBUTYNIN 5 MG ER TAB 10 MG PO (08:03)
[2025-03-28] MEDS: TAMSULOSIN 0.4 MG CAPSULE 0.8 MG PO (08:03)
[2025-03-28] MEDS: DULOXETINE 30 MG CAPSULE PO ×2 (08:03→21:57)
[2025-03-28] MEDS: POTASSIUM CHLORIDE 10 MEQ TAB 20 MEQ PO (08:03)
--- NOTE | 2025-03-28 08:23 | PC.NURSE ---
Patient is alert and oriented this morning, speech clear, patient just slow to respond. Getting ready to eat breakfast. Will get patient up with marium lift for lunch or dinner.
--- NOTE | 2025-03-28 11:15 | PT.IPTN ---
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, initial encounter (03/21/25) Physical Therapy Treatment Note M2 PT-IP Current Condition Start: 03/21/25 18:11 Freq: NEEDED Status: Active Protocol: Document 03/22/25 12:00 AB (Rec: 03/22/25 13:45 AB Desktop) Physical Therapy Current Condition Current Condition Evaluation Date 03/22/25 Treatment Diagnosis encephalopathy; generalized weakness Onset Date 03/20/25 M3 PT-IP Subjective Start: 03/21/25 18:11 Freq: NEEDED Status: Active Protocol: Document 03/28/25 11:15 AB (Rec: 03/28/25 13:35 AB [id number]) Subjective Physical Therapy Visit Type Type Treatment Note Visit Start Time 11:15 Visit Stop Time 11:40 Number of RAIL TRACK MAINTAINER Visits 0 Physical Therapy Visit Comments Patient Comments agreeable to do PT M4 PT-IP Mobility and Gait Start: 03/21/25 18:11 Freq: NEEDED Status: Active Protocol: Document 03/28/25 11:15 AB (Rec: 03/28/25 13:35 AB [id number]) PT-Bed Mobility Assessment Supine to Sit Supine to Sit Maximum Assistance,2 Person Assistance,Head of Bed Elevated,Bedrails Scooting Scooting to Edge of Maximum Assistance,Dependent Bed PT-Transfer Assessment Sit to and From Stand Sit to and from Maximum Assistance,2 Person Assistance,Use of Upper Stand Extremities Equipment Transfer Assistive Gait Belt,Front Wheeled Walker Device Orthotic/Prosthetic No Devices or Brace: Transfers Transfer Destination Chair Transfer Technique Stand Step Pivot Transfer Ability Level of Assist Maximum Assistance,2 Person Assistance,Use of Upper Extremities Comments Mobility Comments pt in bed and agreeable to do PT. supine to sit max A x 2 and max cues. pt needed increase time to complete and required repeated cues to initiate and continue with task. able to sit on EOB mod A and cues. sit to stand max A x 2 and cues and step transfer to chair using FWW max A x 2 and max cues. presents with overall body stiffening/tightening requiring max A x 2 to move LE to transfer. max A x 2 for controlled sitting on chair. pt needed to be cleaned up and brief change. sit to stand from chair max Ax 2 and max cues and was able to maintain standing using FWW for support max A x 2 while NAC assists pt with hygiene care and brief management. positioned pt on the chair. call light and table placed within reach. M5 PT-IP Objective Assessments Start: 03/21/25 18:11 Freq: NEEDED Status: Active Protocol: Document 03/22/25 12:00 AB (Rec: 03/22/25 13:45 AB Desktop) Orientation Orientation/Cognition Level of Alertness Confusional State Orientation Name Language Function Hard of Hearing Ability Safety Awareness Decreased Safety Awareness Memory Description Short Term Impaired,Custodial Impaired Strength Lower Extremity Strength Assessment Bilaterally Impaired Hip 3+/5 Knee 3+/5 Muscle Tone Muscle Tone WNL Yes M6 PT-IP Treatment Start: 03/21/25 18:11 Freq: NEEDED Status: Active Protocol: Document 03/28/25 11:15 AB (Rec: 03/28/25 13:35 AB [id number]) Physical Therapy Treatment Education Education Provided Safety M7 PT-IP Assessment and Plan Start: 03/21/25 18:11 Freq: NEEDED Status: Active Protocol: Document 03/28/25 11:15 AB (Rec: 03/28/25 13:35 AB [id number]) PT Summary Assessment and Plan Potential Rehabilitation Fair Potential Summary Impairments Pain,ROM,Strength,Balance,Coordination,Sensation,Tone, Cognition,Bed Mobility,Transfers,Gait,Activity Tolerance Progress Towards Slow Progress due to Medical Issues,Slow Progress due Goals to Activity Tolerance Assessment Summary pt continues to require max A x 2 with transfers using FWW and max cues with all tasks. pt will require 24/7 assist max A x 2 with mobility and currently unable to ambulate. Goals Bed Mobility Goal Minimal Assistance Transfer Goal Minimal Assistance,Front Wheeled Walker Gait Goal Minimal Assistance,Front Wheel Walker Gait Distance 25 Days to Meet Goals 10 Frequency of Treatment Frequency Of Once a Day Treatment Treatment Plan Physical Therapy Bed Mobility Training,Transfer Training,Gait Training, Treatment Plan Therapeutic Exercise,Balance Retraining,Discharge Planning,Hot or Cold Pack,Neuromuscular Re-ed, Coordination Retraining,Manual Therapy Recommendations To Nursing Amount of Assist Mechanical Lift Needed Discharge Recommendations Transportation Needs Wheelchair/Cabulance,Stretcher/Ambulance at Discharge - PT assist 2
--- NOTE | 2025-03-28 11:41 | OT.IP.TRT ---
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 Patient/Caregiver TO get better Goals M4 OT- IP ADL's Start: 03/27/25 15:15 Freq: Status: Active Protocol: Document 03/28/25 11:18 CCC (Rec: 03/28/25 14:13 [facility] Desktop) OT [id number] Comments OT Self-Feeding Not at meal time. Comments OT ADL-Grooming Comments OT Grooming Comments Pt able to wash his mouth after set-up. OT ADL-Oral Care Comments Oral Care Comments Not performed. OT ADL-Dressing General Eval Lower Body Dressing Maximum Assistance,Total Assistance Ability Comments OT Dressing Comments Assist for brief and socks. Able to stand pt with MAXAx2 with the FWW so nursing aid able to do hygiene and brief management needs. OT ADL-Toileting General Evaluation Toileting Ability Total Assistance Areas Needing Manage Clothing,Perform Perineal Hygiene Assistance OT ADL-Bathing Comments OT Bathing Comments Sponge bath more appropriate at this time. M6 OT- IP Functional Cognition Start: 03/27/25 15:15 Freq: Status: Active Protocol: Document 03/28/25 11:18 CCC (Rec: 03/28/25 14:13 [facility] Desktop) Cognitive Factors Limiting Selfcare Function Cognitive Comments Cognitive Assessment Pt able to partake in conservation better however still Comments slow to respond at times. M7 OT- IP Mobility and Balance Start: 03/27/25 15:15 Freq: Status: Active Protocol: Document 03/28/25 11:18 [facility] (Rec: 03/28/25 14:13 [facility] Desktop) OT- Bed Mobility Assessment Supine to Sit Supine to Sit Assist Maximum Assistance,1 Person Assistance,2 Person Assistance OT-Transfer Assessment Sit to and From Stand Sit to and from Maximum Assistance,2 Person Assistance Stand Transfers Transfer Ability Maximum Assistance,2 Person Assistance Technique Transfer Destination Bed,Chair Transfer Technique Stand Step Pivot Devices Transfer Assistive Gait Belt,Front Wheeled Walker Devices Comments Mobility Comments Pt needing more assist to get to the edge of bed today. Pt better at sitting to midline however still having posterior tilt. MAX AX 2 to stand and heavily leans back on his heals and needing MAX AX 2 to guide the FWW and for his balance. MOD/MAXax2 to stand nursing aid able to to hygiene and brief needs. OT- Balance Assessment Sitting Balance and Reactions Static Sitting Fair Balance Ability Dynamic Sitting Poor Balance Ability Standing Balance and Reactions Static Standing Poor Balance Ability Dynamic Standing Poor Balance Ability Comments Other Balance Tests/ Pt able to sit on the EOB with MODA and vc to lean Deviations/Treatment forwards. : M8 OT- IP Objective Assessments Start: 03/27/25 15:15 Freq: Status: Active Protocol: Document 03/27/25 15:15 [facility] (Rec: 03/27/25 15:43 [facility] Desktop) OT Gross Range of Motion Upper Extremity Range of Motion ROM Impairments Decreased at end ROM. OT Strength Comments Strength Comments BUE 4-/5 to 4+/5 from proximal to distal. M9 OT- IP Assessment and Plan Start: 03/27/25 15:15 Freq: Status: Active Protocol: Document 03/28/25 11:18 [facility] (Rec: 03/28/25 14:13 [facility] Desktop) OT Summary Assessment and Plan Potential Rehabilitation Fair Potential Analytic Complexity Moderate at Evaluation Summary OT Impairments Pain,Strength,Balance,Functional Cognition,Functional Mobility,Self-Feeding,Grooming,Dressing,Toileting, Bathing,Toilet Transfers,Shower Transfers,Activity Tolerance Progress Towards Progressing Toward Goals,Slow Progress due to Activity Goals Tolerance,Slow Progress due to Cognition Assessment Summary Pt able to transfer with MAXA x2 today with FWW. However pending how tired pt gets would benefit from a marium lift if going home. Per PT states states pt able to transfer to the with 1-2 person assist. At this time pt will benefit from 24/7 assist x2 and benefit from marium, hospital bed, BSC, etc... Pt may benefit from short skilled rehab to maximize level of mobility for transfers as prior pt needing just 1 person assist but at times needing 2. Goals Self-Feeding Goal Standby Assistance Grooming Goal Standby Assistance Toilet Transfer Goal Moderate Assistance OT-Other Goals Pt to be able to transfer to [facility] with MODA X 2 with FWW . Days to Meet Goals 25 Frequency of Treatment Other frequency 5x/week Treatment Plan OT Treatment Plan ADL Training,Functional Cognition Training,Functional Mobility Other Treatment Pt to be able to transfer to [facility] with MODA X 2. Recommendations and Next Treatment Focus Discharge Recommendations OT Discharge Home with 24/7 Assist Available,Home Health,SNF Rehab, Recommendations Home vs SNF Home Equipment Needs hospital bed, marium, BS Transportation Needs Wheelchair/Cabulance at Discharge
--- NOTE | 2025-03-28 15:25 | P.PN_ITS ---
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 Rosado [facility] telephone [phone] and pager [phone] Who he last saw 4 months ago, was scheduled for outpatient follow up MRI brain today, but felt too weak. Has generalized weakness for the last 1 week, increased today. Extensive workup was done in the emergency department with CT and an MRI imaging of brain thoracic spine lumbar spine abdomen and pelvis. Pertinent finding is on MRI of the brain demonstrates demonstrates the following: There are multiple punctate foci of hemosiderin deposition. Consider cavernous hemangiomas with associated tiny hemorrhages as a possibility. The remainder of the workup hemogram chemistries were unremarkable Patient was admitted for encephalopathy suspected secondary to vasogenic cerebral edema from innumerable punctate foci of microhemorrhages. Hospital course: 03/21-03/23: Over the weekend patient remained arousable but confused however very weak required full assistance to transfer out of bed too weak to stand or walk with physical therapy Decadron was tapered down to 4 mg twice a day. 03/24: Patient has remained stable but in a very weakened state requiring full care. Dr. Carbajal and Dr. Degroot were consulted by telephone. Dr. Degroot reviewed the CT and MRI and concluded that there is no involvement with neoplasm in this and that the consensus was that this may be an adverse reaction of the AL K inhibitor alectinib 03/25: Still full assist for transfers but is starting to wake up a bit otherwise no complaints 03/26: PT will be re-evaluating today. He seems to be more alert now knows his location still does not know the year still 0 objects in 3 minutes recall. Had long discussion with we are making preparations to referred to Rehabilitation. Continue to stop the alectinib 600 mg and tapering Decadron down to 1 mg 03/27: Mentation is noticeably improving since the year 2023 can now do arithmetic feeding himself patient is appropriate for discharge to rehab when bed available 03/28: Patient is alert, answers simple questions, and has no complaints today. Sitting up. Per OT mod assist x2 with FWW. Placement pending. Exam Vital Signs (past 8 hours): - 03/28/25 08:00 Temperature 96.3 F L Pulse Rate 67 Respiratory Rate 17 Blood Pressure 108/51 L Pulse Oximetry 95 Oxygen Flow Rate 0 Oxygen Delivery Method Room Air Oxygen Flow Rate 0 Objective Labs 03/28/25 05:20 03/28/25 05:20 Labs: Laboratory Results - last 24 hr 03/27/25 03/28/25 21:46 05:20 WBC 20.0 H RBC 3.22 L Hgb 10.7 L Hct 30.6 L MCV 95.1 MCH 33.2 MCHC 34.9 RDW 15.0 H Plt Count 311 Neut % (Auto) Not Reportable Lymph % (Auto) Not Reportable [place] % (Auto) Not Reportable Eos % (Auto) Not Reportable Baso % (Auto) Not Reportable Lymph # (Auto) Not Reportable [place] # (Auto) Not Reportable Baso # (Auto) Not Reportable Total Counted 100 Seg Neutrophils % 75.0 H Band Neutrophils % 4.0 Lymphocytes % (Manual) 16.0 L Monocytes % (Manual) 4.0 Metamyelocytes % 1.0 H Neutrophils # (Manual) 77028 H RBC Morphology See below Acanthocytes (Spur) 1+ Sodium 135 L Potassium 4.3 Chloride 97 L Carbon Dioxide 29 BUN 34 H Creatinine 0.87 Estimated GFR > 60 BUN/Creatinine Ratio 39.1 H Glucose 94 Calcium 9.2 SARS-CoV-2 (PCR) Negative [facility] Medical History Healthy adult Sinusitis Social History marital status: household members: spouse Smoking Status: Never smoker alcohol intake: never Assessment & Plan Assessment & Plan narrative: Initially it was suspected Vasogenic edema secondary to multiple punctate hemorrhages in the setting of ALK positive non-small cell carcinoma however consensus team discussion with care team that there is growing intolerance and adverse reaction to chemotherapy alectinib 600 mg twice daily * Discontinued due to suspected adverse reaction to chemotherapy alectinib 600 * Observe changes in the encephalopathy * Wean Decadron to 2 mg daily, plan to stop tomorrow. 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
--- NOTE | 2025-03-28 15:41 | CM.DPNOTE ---
DCP Cont Lengthy conversation with spouse today discussing goals for patient. Spouse remains optimistic that since being taken off of the targeted cancer drug Alectinib, patient has been slowly progressing cognitively and functionally. Reviewed today's PT note w/spouse who feels patient's care needs are much too extensive for his return home. Patient/sp do not have the funding to pay for private care at home. Updated that a referral was discussed with [facility] and they are not accepting at this time as not enough clinical, skilled needs were identified. Spouse states understanding and would like a SNF referral sent to [facility]. Faxed clinical packet to [facility] admissions per spouse's preference, via [employer]. Plan: Discharge to SNF if one can be secured vs Home w/sp and family, HH if patient imroves functionally. BETO team following closely for coordination. ANDRE
[2025-03-28 20:00] VITALS: BP 131/54; PULSE 74; RESP 19; TEMP 36.4; O2SAT 96
[2025-03-29 07:16] LABS: Add Manual Diff / Slide Review NO; Hematocrit 30.3 % (41-53); Hemoglobin 10.5 g/dL (13.5-17.5); Lymphocytes Absolute Auto 4100 /uL (1100-4500); Mean Corpuscular HGB Conc 34.6 % (30-36); Mean Corpuscular Hemoglobin 33.0 PG (26-34); Mean Corpuscular Volume 95.3 fL (80-100); Platelet Count 296 X10^3/uL (150-400)
[2025-03-29 07:48] LABS: Blood Urea Nitrogen 34 mg/dL (9-20); Calcium 9.4 mg/dL (8.4-10.2); Carbon Dioxide 30 mmol/L (22-32); Chloride 96 mmol/L (98-107); Estimated Glomerular Filt Rate > 60 mL/min (>60); Glucose 90 mg/dL (70-99); HEMOLYSIS < 15 (0-50); Potassium 4.5 mmol/L (3.4-5.1); Sodium 133 mmol/L (137-145)
[2025-03-29] MEDS: TAMSULOSIN 0.4 MG CAPSULE 0.8 MG PO (09:16)
[2025-03-29] MEDS: POTASSIUM CHLORIDE 10 MEQ TAB 20 MEQ PO (09:16)
[2025-03-29] MEDS: PANTOPRAZOLE DR 40 MG TABLET PO (09:16)
[2025-03-29] MEDS: FINASTERIDE 5 MG TABLET PO (09:16)
[2025-03-29] MEDS: OXYBUTYNIN 5 MG ER TAB 10 MG PO (09:16)
[2025-03-29] MEDS: DULOXETINE 30 MG CAPSULE PO ×2 (09:16→20:24)
--- NOTE | 2025-03-29 11:55 | PT.IPTN ---
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, initial encounter (03/21/25) Physical Therapy Treatment Note M2 PT-IP Current Condition Start: 03/21/25 18:11 Freq: NEEDED Status: Active Protocol: Document 03/22/25 12:00 AB (Rec: 03/22/25 13:45 [facility] Desktop) Physical Therapy Current Condition Current Condition Evaluation Date 03/22/25 Treatment Diagnosis encephalopathy; generalized weakness Onset Date 03/20/25 M3 PT-IP Subjective Start: 03/21/25 18:11 Freq: NEEDED Status: Active Protocol: Document 03/29/25 11:55 AB (Rec: 03/29/25 13:05 AB Desktop) Subjective Physical Therapy Visit Type Type Treatment Note Visit Start Time 11:55 Visit Stop Time 12:15 Number of WOOD MODEL BUILDER Visits 0 Physical Therapy Visit Comments Patient Comments agreed to get up for lunch; pt hypoverbal but nodded in agreement M4 PT-IP Mobility and Gait Start: 03/21/25 18:11 Freq: NEEDED Status: Active Protocol: Document 03/29/25 11:55 AB (Rec: 03/29/25 13:05 AB Desktop) PT-Bed Mobility Assessment Supine to Sit Supine to Sit Maximum Assistance,2 Person Assistance,Head of Bed Elevated,Bedrails Scooting Scooting to Edge of Maximum Assistance Bed PT-Transfer Assessment Sit to and From Stand Sit to and from Maximum Assistance,2 Person Assistance,Use of Upper Stand Extremities Equipment Transfer Assistive Front Wheeled Walker Device Orthotic/Prosthetic No Devices or Brace: Transfers Transfer Destination Chair Transfer Technique Stand Step Pivot Transfer Ability Level of Assist Maximum Assistance,2 Person Assistance,Use of Upper Extremities Comments Mobility Comments pt in bed and agreed to get up. pt is hypoverbal but nodded when asked. pt also continues to need increase time to process instructions and needs repeated cues. supine to sit with HOB elevated max A x 2 and max cues. max A for scooting to EOB. sit to stand max A x 2 and step transfer to chair using fWW max A x 2and max cues . pt rested. agreed to get up again. sit to stand max A x 2 and was able to ambulate using FWW max A and with chair follow ~ 6 ft. positioned pt on the chair. set up for lunch. call light placed next to pt. left pt with NAC Gait Assessment Gait Gait Assistance Maximum Assistance,2 Person Assist Required: Distance (Feet) 6 Able to Maintain Yes Weight Bearing Status During Gait Assistive Devices Assistive Device Gait Belt,Front Wheeled Walker Orthotic/Prosthetic No Devices or Brace: Gait Deviations General Gait Pattern Decreased Stride Length,Decreased Feet Clearance,Step- to Gait Factors Limiting Gait Function Factors Limiting Decreased Activity Tolerance,Decreased Strength, Gait Function Difficulty Following Directions,Poor Balance,Poor Safety Awareness M5 PT-IP Objective Assessments Start: 03/21/25 18:11 Freq: NEEDED Status: Active Protocol: Document 03/22/25 12:00 AB (Rec: 03/22/25 13:45 AB Desktop) Orientation Orientation/Cognition Level of Alertness Confusional State Orientation Name Language Function Hard of Hearing Ability Safety Awareness Decreased Safety Awareness Memory Description Short Term Impaired,Hard Metals Hand Engraver Impaired Strength Lower Extremity Strength Assessment Bilaterally Impaired Hip 3+/5 Knee 3+/5 Muscle Tone Muscle Tone WNL Yes M6 PT-IP Treatment Start: 03/21/25 18:11 Freq: NEEDED Status: Active Protocol: Document 03/29/25 11:55 AB (Rec: 03/29/25 13:05 AB Desktop) Physical Therapy Treatment Education Education Provided Safety M7 PT-IP Assessment and Plan Start: 03/21/25 18:11 Freq: NEEDED Status: Active Protocol: Document 03/29/25 11:55 AB (Rec: 03/29/25 13:05 AB Desktop) PT Summary Assessment and Plan Potential Rehabilitation Fair Potential Summary Impairments Pain,ROM,Strength,Balance,Coordination,Sensation,Tone, Cognition,Bed Mobility,Transfers,Gait,Activity Tolerance Progress Towards Slow Progress due to Medical Issues,Slow Progress due Goals to Activity Tolerance Assessment Summary pt improving slowly with mobility and was able to ambulate today using FWW max A ~ 6 ft and chair follow. Pt continues to require max A x 2 for bed mobility and transfers using fWW. Pt will benefit from SNF rehab to improve strength and level of assistance. Goals Bed Mobility Goal Minimal Assistance Transfer Goal Minimal Assistance,Front Wheeled Walker Gait Goal Minimal Assistance,Front Wheel Walker Gait Distance 25 Days to Meet Goals 10 Frequency of Treatment Frequency Of Once a Day Treatment Treatment Plan Physical Therapy Bed Mobility Training,Transfer Training,Gait Training, Treatment Plan Therapeutic Exercise,Balance Retraining,Discharge Planning,Hot or Cold Pack,Neuromuscular Re-ed, Coordination Retraining,Manual Therapy Recommendations To Nursing Amount of Assist Mechanical Lift Needed Discharge Recommendations Transportation Needs Wheelchair/Cabulance at Discharge - PT assist 2
--- NOTE | 2025-03-29 12:51 | PM.PN.IH.1 ---
Subjective Subjective Date Patient Seen: 03/29/25 Time Patient Seen: 08:15 Interval history: Chief complaint: Progressive coma and weakness in the setting of non-small cell carcinoma with MRI brain showing innumerable punctate foci hemosiderin but without recurrent signs of neoplasm History of present illness: 74-year-old male with a history of ALK positive vvx-yjqmk-yukh carcinoma with extensive multiple micro metastases treated initially with cerebral radiation then with ALK inhibitor, alectinib 150 mg capsules 4 twice daily with remarkable disease free results from 2021 to about 3 weeks ago early in February of [address] Rosado [facility] telephone [phone] and pager [phone] Who he last saw 4 months ago, was scheduled for outpatient follow up MRI brain today, but felt too weak. Has generalized weakness for the last 1 week, increased today. Extensive workup was done in the emergency department with CT and an MRI imaging of brain thoracic spine lumbar spine abdomen and pelvis. Pertinent finding is on MRI of the brain demonstrates demonstrates the following: There are multiple punctate foci of hemosiderin deposition. Consider cavernous hemangiomas with associated tiny hemorrhages as a possibility. The remainder of the workup hemogram chemistries were unremarkable Patient was admitted for encephalopathy suspected secondary to vasogenic cerebral edema from innumerable punctate foci of microhemorrhages. Hospital course: 03/21-03/23: Over the weekend patient remained arousable but confused however very weak required full assistance to transfer out of bed too weak to stand or walk with physical therapy Decadron was tapered down to 4 mg twice a day. 03/24: Patient has remained stable but in a very weakened state requiring full care. Dr. Carbajal and Dr. Degroot were consulted by telephone. Dr. Degroot reviewed the CT and MRI and concluded that there is no involvement with neoplasm in this and that the consensus was that this may be an adverse reaction of the AL K inhibitor alectinib 03/25: Still full assist for transfers but is starting to wake up a bit otherwise no complaints 03/26: PT will be re-evaluating today. He seems to be more alert now knows his location still does not know the year still 0 objects in 3 minutes recall. Had long discussion with we are making preparations to referred to Rehabilitation. Continue to stop the alectinib 600 mg and tapering Decadron down to 1 mg 03/27: Mentation is noticeably improving since the year 2023 can now do arithmetic feeding himself patient is appropriate for discharge to rehab when bed available 03/28: Patient is alert, answers simple questions, and has no complaints today. Sitting up. Per OT mod assist x2 with FWW. Placement pending. 03/29: Patient is awake, oriented to person, hospital, month and year, though states he is in [place]. Placement pending. Exam Vital Signs (past 8 hours): Oxygen Delivery Method Room Air Oxygen Flow Rate 0 Narrative Exam Narrative: GEN: Pleasant mildly confused elderly male, Alert and oriented x 2-3, NAD HEENT:NC, Face symmetric CHEST: Respiratory excursions symmetric, CTAB CV: RRR, no M/R/G ABD: Soft, NT/ND, BT present in all 4 quadrants, no organomegaly or masses EXTR: warm, well perfused, no C/C/E SKIN: warm and dry, no rash NEURO: Alert and oriented x 1-2, nonfocal Objective Imaging *: Radiologist's impression: 1. Chest x-ray 03/20/2025: Low lung volumes, without an acute abnormality seen by plain film. Postoperative and degenerative changes are seen. 2. Chest/abdomen/pelvis CT 03/21/2025: Sclerotic spine lesions suspicious for metastatic disease. Scattered atelectasis/scarring with thickened opacities in the lungs, most obvious in the right lower lobe. Close attention on follow-up suggested given malignancy history. Decreased hilar mediastinal lymphadenopathy and right adrenal nodularity compared to 2021. Other findings above. No significant changes from the preliminary report. 3. Brain MRI 03/21/2025: 1. No acute stroke. No intracranial metastatic disease. 2. Age-related volume loss and severe small vessel ischemic change. 3. Multiple punctate foci of hemosiderin deposition. Consider cavernous hemangiomata. Also consider amyloid angiopathy. 4. Cervical spine MRI 03/21/2025: No abnormal enhancement is seen. No litzy findings of cervical metastatic disease can be seen. Multiple levels of underlying degenerative change can be seen. 5. Thoracic spine MRI 03/21/2025: Scattered areas of sclerotic metastatic disease can be seen, which are overall better demonstrated on the accompanying CT study. No significant abnormal enhancement can be seen. 6. Lumbar spine MRI 03/21/2025: This patient has bony sclerotic lesions, which are better demonstrated by CT. No abnormal enhancement is seen. Underlying degenerative changes are seen, which are overall worst at the L4-L5 level. 7. Head CT 03/21/2025: 1. Age-related volume loss and severe small vessel ischemic change. 2. No acute intracranial process. Labs 03/29/25 06:52 03/29/25 06:52 Labs: Laboratory Results - last 24 hr 03/29/25 06:52 WBC 21.0 H RBC 3.18 L Hgb 10.5 L Hct 30.3 L MCV 95.3 MCH 33.0 MCHC 34.6 RDW 15.1 H Plt Count 296 Neut % (Auto) 67.9 Lymph % (Auto) 19.6 L [place] % (Auto) 7.5 Eos % (Auto) 4.1 H Baso % (Auto) 0.9 Neut # (Auto) 71944 H Lymph # (Auto) 4100 [place] # (Auto) 1600 H Eos # (Auto) 900 H Baso # (Auto) 200 H Sodium 133 L Potassium 4.5 Chloride 96 L Carbon Dioxide 30 BUN 34 H Creatinine 0.90 Estimated GFR > 60 BUN/Creatinine Ratio 37.8 H Glucose 90 Calcium 9.4 PFSH Medical History Healthy adult Sinusitis Social History marital status: household members: spouse Smoking Status: Never smoker alcohol intake: never Assessment & Plan Assessment & Plan narrative: 1. Metabolic encephalopathy: Initially it was suspected Vasogenic edema secondary to multiple punctate hemorrhages in the setting of ALK positive non-small cell carcinoma however consensus team discussion with care team that there is growing intolerance and adverse reaction to chemotherapy alectinib 600 mg twice daily Discontinued alectinib due to suspected adverse reaction to chemotherapy Observe changes in the encephalopathy Stop Decadron . Refer for inpatient rehabilitation versus SNF, awaiting placement 2. ALK positive lnp-lgtnf-xqbo carcinoma with extensive multiple micro metastases 3. Depression: Stable on duloxetine. 4. GERD: Stable on PPI 5. BPH: Stable on tamsulosin, mirabegron and tadalafil. 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
--- NOTE | 2025-03-29 16:12 | CM.DPNOTE ---
DCP Cont Placed multiple calls to [facility] today with no response. PT reports patient is improving, although slowly. SW team following closely for coordination- DC either to [facility] vs Home w/sp and HH. ANDRE
[2025-03-29 19:00] VITALS: BP 124/63; PULSE 85; RESP 18; TEMP 36.8; O2SAT 96
[2025-03-29] MEDS: HYDROCODONE/ACET 5/325 TABLET 1 TAB PO (20:24)
--- NOTE | 2025-03-30 09:26 | CM.DPNOTE ---
DCP note GEOSPATIAL SYSTEMS INTEGRATOR reviewed EMR GEOSPATIAL SYSTEMS INTEGRATOR spoke with Faisal from [facility]. acceptance pending with DNS at this time. if able to accept, could have a bed available either Monday vs Monday. if SNF, [facility] needed CM team will continue to follow closely for DCP coordination SHASTA Douglas
[2025-03-30 09:52] VITALS: BP 123/67; PULSE 86; RESP 16; TEMP 36.2; O2SAT 93
[2025-03-30] MEDS: DULOXETINE 30 MG CAPSULE PO ×2 (10:53→20:27)
[2025-03-30] MEDS: OXYBUTYNIN 5 MG ER TAB 10 MG PO (10:53)
[2025-03-30] MEDS: PANTOPRAZOLE DR 40 MG TABLET PO (10:53)
[2025-03-30] MEDS: SENNOSIDES 8.6 MG TABLET PO ×2 (10:53→20:28)
[2025-03-30] MEDS: POTASSIUM CHLORIDE 10 MEQ TAB 20 MEQ PO (10:53)
[2025-03-30] MEDS: FINASTERIDE 5 MG TABLET PO (10:53)
[2025-03-30] MEDS: DOCUSATE 100 MG CAPSULE PO ×2 (10:53→20:27)
[2025-03-30] MEDS: TAMSULOSIN 0.4 MG CAPSULE 0.8 MG PO (10:53)
--- NOTE | 2025-03-30 11:08 | PT-IP ANOTE ---
PT reviews chart and checks on pt. Pt is very lethargic and unable to keep eyes open to initiate skilled PT. Will con't PT efforts next date.
--- NOTE | 2025-03-30 14:39 | PM.PN.IH.1 ---
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 Rosado [facility] telephone [phone] and pager [phone] Who he last saw 4 months ago, was scheduled for outpatient follow up MRI brain today, but felt too weak. Has generalized weakness for the last 1 week, increased today. Extensive workup was done in the emergency department with CT and an MRI imaging of brain thoracic spine lumbar spine abdomen and pelvis. Pertinent finding is on MRI of the brain demonstrates demonstrates the following: There are multiple punctate foci of hemosiderin deposition. Consider cavernous hemangiomas with associated tiny hemorrhages as a possibility. The remainder of the workup hemogram chemistries were unremarkable Patient was admitted for encephalopathy suspected secondary to vasogenic cerebral edema from innumerable punctate foci of microhemorrhages. Hospital course: 03/21-03/23: Over the weekend patient remained arousable but confused however very weak required full assistance to transfer out of bed too weak to stand or walk with physical therapy Decadron was tapered down to 4 mg twice a day. 03/24: Patient has remained stable but in a very weakened state requiring full care. Dr. Carbajal and Dr. Degroot were consulted by telephone. Dr. Degroot reviewed the CT and MRI and concluded that there is no involvement with neoplasm in this and that the consensus was that this may be an adverse reaction of the AL K inhibitor alectinib 03/25: Still full assist for transfers but is starting to wake up a bit otherwise no complaints 03/26: PT will be re-evaluating today. He seems to be more alert now knows his location still does not know the year still 0 objects in 3 minutes recall. Had long discussion with we are making preparations to referred to Rehabilitation. Continue to stop the alectinib 600 mg and tapering Decadron down to 1 mg 03/27: Mentation is noticeably improving since the year 2023 can now do arithmetic feeding himself patient is appropriate for discharge to rehab when bed available 03/28: Patient is alert, answers simple questions, and has no complaints today. Sitting up. Per OT mod assist x2 with FWW. Placement pending. 03/29: Patient is awake, oriented to person, hospital, month and year, though states he is in [place]. Placement pending. 03/30: No new events. He is awake, still thinks that he is in the hospital in [place]. [facility] to accept tomorrow. Exam Vital Signs (past 8 hours): - 03/30/25 09:52 Temperature 97.2 F L Pulse Rate 86 Respiratory Rate 16 Blood Pressure 123/67 Pulse Oximetry 93 Oxygen Flow Rate 0 Oxygen Delivery Method Room Air Oxygen Flow Rate 0 Narrative Exam Narrative: GEN: Pleasant mildly confused elderly male, Alert and oriented x 2-3, NAD HEENT:NC, Face symmetric CHEST: Respiratory excursions symmetric, CTAB CV: RRR, no M/R/G ABD: Soft, NT/ND, BT present in all 4 quadrants, no organomegaly or masses EXTR: warm, well perfused, no C/C/E SKIN: warm and dry, no rash NEURO: Alert and oriented x 1-2, nonfocal Objective Imaging *: Radiologist's impression: 1. Chest x-ray 03/20/2025: Low lung volumes, without an acute abnormality seen by plain film. Postoperative and degenerative changes are seen. 2. Chest/abdomen/pelvis CT 03/21/2025: Sclerotic spine lesions suspicious for metastatic disease. Scattered atelectasis/scarring with thickened opacities in the lungs, most obvious in the right lower lobe. Close attention on follow-up suggested given malignancy history. Decreased hilar mediastinal lymphadenopathy and right adrenal nodularity compared to 2021. Other findings above. No significant changes from the preliminary report. 3. Brain MRI 03/21/2025: 1. No acute stroke. No intracranial metastatic disease. 2. Age-related volume loss and severe small vessel ischemic change. 3. Multiple punctate foci of hemosiderin deposition. Consider cavernous hemangiomata. Also consider amyloid angiopathy. 4. Cervical spine MRI 03/21/2025: No abnormal enhancement is seen. No litzy findings of cervical metastatic disease can be seen. Multiple levels of underlying degenerative change can be seen. 5. Thoracic spine MRI 03/21/2025: Scattered areas of sclerotic metastatic disease can be seen, which are overall better demonstrated on the accompanying CT study. No significant abnormal enhancement can be seen. 6. Lumbar spine MRI 03/21/2025: This patient has bony sclerotic lesions, which are better demonstrated by CT. No abnormal enhancement is seen. Underlying degenerative changes are seen, which are overall worst at the L4-L5 level. 7. Head CT 03/21/2025: 1. Age-related volume loss and severe small vessel ischemic change. 2. No acute intracranial process. Labs 03/29/25 06:52 03/29/25 06:52 Labs: Laboratory Results - last 24 hr 03/29/25 06:52 WBC 21.0 H RBC 3.18 L Hgb 10.5 L Hct 30.3 L MCV 95.3 MCH 33.0 MCHC 34.6 RDW 15.1 H Plt Count 296 Neut % (Auto) 67.9 Lymph % (Auto) 19.6 L [place] % (Auto) 7.5 Eos % (Auto) 4.1 H Baso % (Auto) 0.9 Neut # (Auto) 73106 H Lymph # (Auto) 4100 [place] # (Auto) 1600 H Eos # (Auto) 900 H Baso # (Auto) 200 H Sodium 133 L Potassium 4.5 Chloride 96 L Carbon Dioxide 30 BUN 34 H Creatinine 0.90 Estimated GFR > 60 BUN/Creatinine Ratio 37.8 H Glucose 90 Calcium 9.4 PFSH Medical History Healthy adult Sinusitis Social History marital status: household members: spouse Smoking Status: Never smoker alcohol intake: never Assessment & Plan Assessment & Plan narrative: 1. Metabolic encephalopathy: Initially it was suspected Vasogenic edema secondary to multiple punctate hemorrhages in the setting of ALK positive non-small cell carcinoma however consensus team discussion with care team that there is growing intolerance and adverse reaction to chemotherapy alectinib 600 mg twice daily Discontinued alectinib due to suspected adverse reaction to chemotherapy He completed several days of Decadron, stopping on 03/29. Observe changes in the encephalopathy , stable at this point though with some mild persistent disorientation Plan for SNF discharge tomorrow. 2. 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 Depression: Stable on duloxetine. 4. GERD: Stable on PPI 5. BPH: Stable on tamsulosin, mirabegron and tadalafil. 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
--- NOTE | 2025-03-30 14:42 | CM.DPNOTE ---
DCP Note BOILING HOUSE OILER reviewed EMR per Faisal at [facility], can accept pt. Monday between 10-1pm. BOILING HOUSE OILER reviewed plan with spouse via phone. per spouse, preference dc to [facility] [place]. transport- PT had recommended stretcher. per RN, pt may be able to tolerate wc van but may also benefit from non emergency ambulance. BOILING HOUSE OILER reviewed transport options. agreeable to BLS. report verbal understanding there may be a bill associated. BOILING HOUSE OILER completed transport form and POLST per Michelle at ambulance, transport scheduled for 11am tomorrow. P: dc tomorrow at 11am to [facility]. CM team will continue to follow closely for DCP coordination SHASTA Douglas
[2025-03-31 05:00] VITALS: BP 124/55; PULSE 84; RESP 18; TEMP 36.4; O2SAT 94
--- NOTE | 2025-03-31 07:42 | P.DS_ITS ---
History of Present Illness History of Present Illness Date Patient Seen: 03/31/25 Time Patient Seen: 07:42 Chief complaint: Encephalopathy NSCLC punctate cerebral Bleeds Narrative: Chief complaint: Progressive coma and weakness in the setting of non-small cell carcinoma with MRI brain showing innumerable punctate foci hemosiderin and probable hemorrhages History of present illness: 03/21: 74-year-old male with a history of ALK positive kka-pyjft-xyoh carcinoma with extensive multiple micro metastases treated initially with cerebral radiation then with ALK inhibitor, alectinib 150 mg capsules 4 twice daily with remarkable disease free results from 2021 to about 3 weeks ago early in February of [address] Rosado [facility] telephone [phone] and pager [phone] Who he last saw 4 months ago, was scheduled for outpatient follow up MRI brain today, but felt too weak. Has generalized weakness for the last 1 week, increased today. Extensive workup was done in the emergency department with CT and an MRI imaging of brain thoracic spine lumbar spine abdomen and pelvis. Pertinent finding is on MRI of the brain demonstrates demonstrates the following: There are multiple punctate foci of hemosiderin deposition. Consider cavernous hemangiomas with associated tiny hemorrhages as a possibility. The remainder of the workup hemogram chemistries were unremarkable Patient was admitted for encephalopathy initially thought to be secondary to vasogenic cerebral edema from innumerable punctate foci of microhemorrhages. Dr. Carbajal was paged awaiting response. Hospital course: 03/21-03/23: Over the weekend patient remained arousable but confused however very weak required full assistance to transfer out of bed too weak to stand or walk with physical therapy Decadron was tapered down to 4 mg twice a day. 03/24: Patient has remained stable but in a very weakened state requiring full care. Dr. Carbajal and Dr. Degroot were consulted by telephone. Dr. Degroot reviewed the CT and MRI and concluded that there is no involvement with neoplasm in this and that the consensus was that this may be an adverse reaction of the AL K inhibitor alectinib 03/25: Still full assist for transfers but is starting to wake up a bit otherwise no complaints 03/26: PT will be re-evaluating today. He seems to be more alert now knows his location still does not know the year still 0 objects in 3 minutes recall. Had long discussion with we are making preparations to referred to Rehabilitation. Continue to stop the alectinib 600 mg and tapering Decadron down to 1 mg 03/27: Mentation is noticeably improving since the year 2023 can now do arithmetic feeding himself patient is appropriate for discharge to rehab when bed available 03/28: Patient is alert, answers simple questions, and has no complaints today. Sitting up. Per OT mod assist x2 with FWW. Placement pending. 03/29: Patient is awake, oriented to person, hospital, month and year, though states he is in [place]. Placement pending. 03/30: No new events. He is awake, still thinks that he is in the hospital in [place]. [facility] to accept tomorrow. Review of systems: Patient unable to participate in review of systems as he is nonverbal Physical exam: Chronically ill elderly male at new baseline of mentation HEENT unremarkable Heart rate and rhythm regular Lungs clear to auscultation [place] nontender Extremities no edema Moves all extremities Objective laboratory and imaging please see the bottom of the note: 1. Chest x-ray 03/20/2025: Low lung volumes, without an acute abnormality seen by plain film. Postoperative and degenerative changes are seen. 2. Chest/abdomen/pelvis CT 03/21/2025: Sclerotic spine lesions suspicious for metastatic disease. Scattered atelectasis/scarring with thickened opacities in the lungs, most obvious in the right lower lobe. Close attention on follow-up suggested given malignancy history. Decreased hilar mediastinal lymphadenopathy and right adrenal nodularity compared to 2021. Other findings above. No significant changes from the preliminary report. 3. Brain MRI 03/21/2025: 1. No acute stroke. No intracranial metastatic disease. 2. Age-related volume loss and severe small vessel ischemic change. 3. Multiple punctate foci of hemosiderin deposition. Consider cavernous hemangiomata. Also consider amyloid angiopathy. 4. Cervical spine MRI 03/21/2025: No abnormal enhancement is seen. No litzy findings of cervical metastatic disease can be seen. Multiple levels of underlying degenerative change can be seen. 5. Thoracic spine MRI 03/21/2025: Scattered areas of sclerotic metastatic disease can be seen, which are overall better demonstrated on the accompanying CT study. No significant abnormal enhancement can be seen. 6. Lumbar spine MRI 03/21/2025: This patient has bony sclerotic lesions, which are better demonstrated by CT. No abnormal enhancement is seen. Underlying degenerative changes are seen, which are overall worst at the L4-L5 level. 7. Head CT 03/21/2025: 1. Age-related volume loss and severe small vessel ischemic change. 2. No acute intracranial process. Assessment and plan: 1. Metabolic encephalopathy: Initially it was suspected Vasogenic edema secondary to multiple punctate hemorrhages in the setting of ALK positive non- small cell carcinoma however consensus team discussion with care team that there is growing intolerance and adverse reaction to chemotherapy alectinib 600 mg twice daily * Discontinued alectinib due to suspected adverse reaction to chemotherapy * He completed several days of Decadron, stopping on 03/29. * Leukocytosis secondary to demargination of white blood cells no signs of infection * Observe changes in the encephalopathy , stable at this point though with some mild persistent disorientation * Plan for SNF discharge today. 2. ALK positive ufx-cwqsr-irtl carcinoma with extensive multiple micro metastases 3. Depression: Stable on duloxetine. 4. GERD: Stable on PPI 5. BPH: Stable on tamsulosin, mirabegron and tadalafil. 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 Code status: Do not resuscitate Patient to be accepted at [facility] Preparation made for transport today 35 minutes were involved in evaluation of this patient including [id number] evaluation review of records objective findings Discharge Providers Provider Date of admission: 03/21/25 16:35 Discharge Date: 03/31/25 Primary care physician: MERYL Cruz Consults: 03/21/25 08:22 Consult to Physical Therapy Evaluate & Treat Comment: Physician Instructions: Evaluate and Treat 03/27/25 13:28 Consult to Occupational Therapy Evaluate & Treat Comment: Physician Instructions: Evaluate and treat Discharge provider: Albert Art MD Exam Vital Signs (past 8 hours): - 03/31/25 05:00 Temperature 97.6 F Pulse Rate 84 Respiratory Rate 18 Blood Pressure 124/55 L Pulse Oximetry 94 Oxygen Delivery Method Room Air Oxygen Flow Rate 0 Objective Labs 03/29/25 06:52 03/29/25 06:52 [facility] Medical History Healthy adult Sinusitis Social History marital status: household members: spouse Smoking Status: Never smoker alcohol intake: never Discharge Plan Discharge Plan Patient Disposition: SNF Transfer to: [facility] Discharge orders & Medications Prescriptions: New sennosides [senna] 8.6 mg Tablet 8.6 mg PO BID Qty: 5 0RF docusate sodium 100 mg Capsule 100 mg PO BID Qty: 10 0RF Continued potassium chloride 10 mEq capsule, extended release 20 meq PO DAILY tamsulosin 0.4 mg capsule 0.8 mg PO DAILY pantoprazole 40 mg tablet,delayed release (DR/EC) 40 mg PO DAILY finasteride 5 mg tablet 5 mg PO DAILY tadalafil 2.5 mg tablet 2.5 mg PO DAILY mirabegron [Myrbetriq] 50 mg tablet extended release 24 hr 50 mg PO DAILY duloxetine 30 mg capsule,delayed release(DR/EC) 30 mg PO BID calcium carb-D3-mag [id number] 1 tab PO DAILY methylphenidate HCl 5 mg tablet 5 mg PO DAILY PRN (Reason: wake) Qty: 8 0RF Discontinued Alecensa 150 mg capsule See Rx Instructions PO BID Rx Instructions: 600 mg bid with fatty food. orally twice a day; must administer with a meal/food Follow up/Referrals: Angélica Hopper ARNP [Primary Care Provider, Family Practice] Visit Report/Discharge Packet Stand Alone Forms: Patient Portal/API Discharge Data Primary Care Provider: Angélica Hopper Quality VTE Deep Vein Thrombosis/Pulmonary Embolism Present on Admission: No
[2025-03-31 09:00] VITALS: BP 136/65; PULSE 85; RESP 15; TEMP 36.4; O2SAT 94
[2025-03-31] MEDS: FINASTERIDE 5 MG TABLET PO (09:00)
[2025-03-31] MEDS: DOCUSATE 100 MG CAPSULE PO (09:00)
[2025-03-31] MEDS: SENNOSIDES 8.6 MG TABLET PO (09:00)
[2025-03-31] MEDS: PANTOPRAZOLE DR 40 MG TABLET PO (09:01)
[2025-03-31] MEDS: DULOXETINE 30 MG CAPSULE PO (09:01)
[2025-03-31] MEDS: TAMSULOSIN 0.4 MG CAPSULE 0.8 MG PO (09:01)
[2025-03-31] MEDS: POTASSIUM CHLORIDE 10 MEQ TAB 20 MEQ PO (09:01)
[2025-03-31] MEDS: OXYBUTYNIN 5 MG ER TAB 10 MG PO (09:01)
--- NOTE | 2025-03-31 11:19 | CM.DPNOTE ---
DCP note REFUND CLERK reviewed EMR per provider cleared to dc today per Yanni at [facility] (p [phone] f [phone]) can accept. REFUND CLERK faxed PAS[facility]/scripts/meds/dc summary. REFUND CLERK confirmed with sposue agreeable to plan. Answered questions to best of ability. remain agreeable with BLS transport. REFUND CLERK updated RN. gave report number. Placed PASRR/scripts/meds in packet. placed BLS form with packet. REFUND CLERK updated chargemaster specialist P: dc today to [facility] via [facility] at 11am. no further CM needs at this tmie. will continue to follow as needed SHASTA Douglas
--- NOTE | 2025-03-31 11:19 | PC.NURSE ---
Discharge Note Pt transferred to [facility] at 1120 via B[facility] ambulance. Report given to ambulance crew and to Angelica at [facility], all questions answered. Information packet with transport team along with clothing, shoes, and toiletries. at bedside at time of transport and all questions answered.
== END 2025-03-31 11:21 | DRG 71 ==
LOC: ED 03-21 08:10 → AC 03-21 16:36
PROVIDERS: Emergency Medicine; Family Medicine; Internal Medicine; Admitting Provider Internal Medicine; Emergency Provider Emergency Medicine; PCP Nurse Practitioner Family; Referring Provider Emergency Medicine; Visit Provider Internal Medicine
DX: G93.41 Metabolic encephalopathy (principal); C71.0 Malignant neoplasm of cerebrum, except lobes and ventricles; C79.9 Secondary malignant neoplasm of unspecified site; T45.1X5A Adverse effect of antineoplastic and immunosuppressive drugs, initial encounter; N40.0 Benign prostatic hyperplasia without lower urinary tract symptoms; D63.0 Anemia in neoplastic disease; Z95.828 Presence of other vascular implants and grafts; Z66 Do not resuscitate
CPT/HCPCS: 36415; 36591; 70470; 70553; 71045; 71260; 72156; 72157; 72158; 74177; 80048; 80053; 81001; 82805; 83605; 84484; 85007; 85014; 85018; 85025; 86850; 86900; 86901; 87040; 87635; 87637; 96361; 96374; 97163; 97166; 97530; 97535; 99284; 99285; J1100; J1642; Q9967